=== PATIENT | female | born 1965 | race Caucasian/White ===

== ENCOUNTER 2017-01-22 15:44 | Inpatient (IN) | payer SELFPAY ==
--- NOTE | 2017-01-22 15:48 | EDPHY ---
H & P HPI/ROS: HPI CHIEF COMPLAINT: Shortness of breath, wheezing, productive cough HISTORY OF PRESENT ILLNESS: This patient very pleasant 51-year-old female, lives at [facility], has significant past medical history for pulmonary embolism, lupus, and blindness, she presents emergency room by EMS for progressively worsening shortness of breath over the past 3 weeks. Patient tells me she has been coughing worse over the last week. Patient tells me that she has a productive cough but due to being blind she is unsure what color the sputum is. Denies chest pain or pleuritic pain. Does have pain when she coughs. She is requiring 5 L nasal cannula to keep O2 sat above 90%. She normally wears 2-3 L however was satting 90%. Lives at [facility]. On Xarelto. Past Medical History: Lupus, blindness, pulmonary embolism Past Surgical History: Denies recent surgery Social History: Lives at [facility], denies drugs or tobacco. Family History: Noncontributory ROS REVIEW OF SYSTEMS: A comprehensive 10 point review of systems is otherwise negative aside from elements mentioned in the history of present illness. Exam Constitutional appears well nontoxic triage nursing summary reviewed, vital signs reviewed, awake/alert. Eyes normal conjunctivae and sclera, EOMI, PERRLA. HENT normal inspection, atraumatic, moist mucus membranes, no epistaxis, neck supple/ no meningismus, no raccoon eyes. Respiratory decreased breath sounds bilaterally, faint wheezing bilaterally, bronchitic sounding cough. Cardiovascular rate normal, regular rhythm, no murmur, no edema, distal pulses normal. Gastrointestinal soft, non-tender, no rebound, no guarding, normal bowel sounds, no distension, no pulsatile mass. Genitourinary no CVA tenderness. Musculoskeletal no midline vertebral tenderness, full range of motion, no calf swelling, no tenderness of extremities, no meningismus, good pulses, neurovascularly intact. Skin pink, warm, & dry, no rash, skin atraumatic. Neurologic awake, alert and oriented x 3, AAOx3, moves all 4 extremities equally, motor intact, sensory intact, CN II-XII intact, normal cerebellar, normal vision, normal speech. Psychiatric normal mood/affect. Heme/Lymph/Immune no lymphadenopathy. Differential Diagnosis: Includes but is not limited to in a particular order, bronchitis, viral syndrome, pneumonia, CHF, pulmonary embolism, pneumothorax Medical Decision Making: Plan for this patient full manager hospital, EKG, IV establishment, check troponin, D-dimer, BMP, DuoNeb breathing treatment, Solu- Medrol. Chest x-ray. Re-evaluation: EKG interpretation by me on record in [place] system. Impression time of EKG 1607, this is sinus tachycardia rate of 108. Left axis deviation. I do not appreciate acute ischemic change. ED CT angiogram: This is negative for central pulmonary embolism however there is decreased lung volume bilaterally, significant atelectasis at the base. Cannot rule out pneumonia. Cannot rule out small subsegmental PEs. 1847: Patient be admitted to the hospitalist service for hypoxia, shortness of breath. No PEs visualized on CT scan. Possible pneumonia I will give her IV Rocephin and IV azithromycin after blood cultures. Source: Patient, EMS Constitutional: Initial Vital Signs Temperature (C) 36.7 C 01/22/17 15:52 Heart Rate 112 H 01/22/17 15:52 Respiratory Rate 18 01/22/17 15:52 Blood Pressure 135/60 H 01/22/17 15:52 O2 Sat (%) 92 01/22/17 15:52 O2 Delivery Mode Nasal Cannula O2 (L/minute) 5 Allergies/Adverse Reactions: codeine Allergy (Verified 01/22/17 15:51) Sulfa (Sulfonamide Antibiotics) Allergy (Verified 01/22/17 15:51) contrast dye Allergy (Uncoded 01/22/17 15:51) Home Medications: Medication Instructions Recorded ALPRAZolam [Xanax 0.5 MG (*)] 0.5 mg PO BID PRN 01/22/17 Acetaminophen [Tylenol 325mg (*)] 650 mg PO Q6HRS PRN 01/22/17 Bisacodyl [Dulcolax] 10 mg RC DAILY PRN 01/22/17 Brimonidine 0.2% [ALPHAGAN 0.2% 1 drops EACHEYE TID@,14,01/22/17 (RX)] Dexamethasone [Decadron 4 MG (*)] 4 mg PO BID 01/22/17 Diclofenac Sodium 1% [Voltaren Gel 1 owen TP Q6HRS PRN 01/22/17 (*)] Divalproex ER [Depakote ER 250 MG 250 mg PO BID 01/22/17 (*)] Dorzolamide 2% [Trusopt 2% (*)] 1 drops OP BID 01/22/17 Gabapentin [Neurontin 300 MG (*)] 300 mg PO TID@08,,01/22/17 Herbals/Supplements -Info Only 1 ea PO DAILY 01/22/17 Hydrocodone/Acetaminophen [[place] 1 each PO Q6HRS PRN 01/22/17 5/325 (*)] Latanoprost 0.005% [Xalatan 0.005% 1 drops EACHEYE HS 01/22/17 (*)] Magnesium Hydroxide/Al Hydrox 20 ml PO Q4HRS PRN 01/22/17 [Mylanta Liquid] Omeprazole [Prilosec 20 mg] 20 mg PO DAILY 01/22/17 Rivaroxaban [Xarelto 10mg (*)] 20 mg PO HS 01/22/17 Sennosides/Docusate Sodium 1 each PO DAILY 01/22/17 [Senna-Docusate Sodium Tablet] Sertraline HCl [Zoloft 100mg (*)] 100 mg PO DAILY 01/22/17 Timolol 0.5% [TIMOPTIC 0.5% (*)] 1 drops EACHEYE BID 01/22/17 traZODone [traZODONE 50MG (*)] 50 mg PO HS 01/22/17 Ipratropium/Albuterol [Duoneb (*)] 3 ml IH Q4HRS PRN 01/23/17 Multivitamins [Multivitamin (*)] 1 each PO DAILY 01/23/17 Potassium Cl [Klor-Con 20 meq (*)] 40 meq PO BID@08,16 01/23/17 Medical Decision Making - Data Points Laboratory Results: Laboratory Results 01/22/17 16:15 01/22/17 16:15 01/22/17 16:15 Smear Review By Charito BABCOCK MD Medications Given: Discontinued Medications Acetaminophen (Tylenol) 650 mg PO Q4HRS PRN PRN Reason: Pain, Mild/Fever, Can Take PO Stop: 07/21/17 18:56 Last Admin: 01/22/17 21:48 Dose: 650 mg Albuterol/Ipratropium (Duoneb) 3 ml IH EDNOW ONE Stop: 01/22/17 15:52 Last Admin: 01/22/17 16:17 Dose: 3 ml Alprazolam (Xanax) 0.5 mg PO EDNOW ONE Stop: 01/22/17 16:30 Last Admin: 01/22/17 16:32 Dose: 0.5 mg Alprazolam (Xanax) 0.5 mg PO ONCE ONE Stop: 01/23/17 08:51 Last Admin: 01/23/17 09:13 Dose: 0.5 mg Diphenhydramine HCl (Benadryl Injection) 25 mg IVP EDNOW ONE Stop: 01/22/17 17:39 Last Admin: 01/22/17 17:42 Dose: 25 mg Sodium Chloride (Ns) 1,000 mls @ 0 mls/hr IV ONCE ONE; Wide Open PRN Reason: Protocol Stop: 01/22/17 15:52 Last Admin: 01/22/17 16:16 Dose: 1,000 mls Azithromycin 500 mg/ Dextrose 255 mls @ 255 mls/hr IV EDNOW ONE PRN Reason: Protocol Stop: 01/22/17 19:47 Last Admin: 01/22/17 20:27 Dose: 255 mls Ceftriaxone Sodium/Dextrose (Rocephin 1 Gm (Premix)) 50 mls @ 100 mls/hr IV EDNOW ONE PRN Reason: Protocol Stop: 01/22/17 19:17 Last Admin: 01/22/17 23:16 Dose: Not Given Azithromycin 500 mg/ Dextrose 255 mls @ 255 mls/hr IV DAILY CINTIA PRN Reason: Protocol Stop: 02/22/17 08:59 Last Admin: 01/23/17 10:38 Dose: Not Given Methylprednisolone Sodium Succinate (Solu-Medrol) 125 mg IVP EDNOW ONE Stop: 01/22/17 15:52 Last Admin: 01/22/17 16:17 Dose: 125 mg Departure - Departure Disposition: [facility] Inpatient Acute Clinical Impression: Hypoxia Pneumonia Qualifiers: Pneumonia type: due to unspecified organism Laterality: bilateral Lung location : lower lobe of lung Qualified Code(s): J18.9 - Pneumonia, unspecified organism Condition: Fair
[2017-01-22] MEDS ORDERED: IPRATROPIUM/ALBUTEROL 3 ML DEYVIAL IH ONE (15:51)
[2017-01-22] MEDS ORDERED: NS 1,000 ML IV ONE (15:51)
[2017-01-22] MEDS ORDERED: methylPREDNISolone SOD SUCC 125 MG/2 ML VIAL IVP ONE (15:51)
--- NOTE | 2017-01-22 16:09 | CPEKG ---
Heart Rate: 108 RR Interval: 556 P-R Interval: 128 QRSD Interval: 76 QT Interval: 348 QTC Interval: 467 P [place]: -4 QRS [place]: -39 T Wave [place]: 17 EKG Severity - ABNORMAL ECG - EKG Impression: SINUS TACHYCARDIA EKG Impression: LEFT AXIS DEVIATION EKG Impression: PROBABLE LEFT VENTRICULAR HYPERTROPHY EKG Impression: CONSIDER ANTERIOR INFARCT Electronically Signed By: Jacques Cabrera 22-Jan-2017 22:32:10
[2017-01-22 16:21] LABS: ABSOLUTE NRBC COUNT 0.06 10^3/uL (0-0.01); ADD DIFF? YES; ADD MORPH? NO; ADD SCAN? NO; ATYPICAL LYMPHOCYTE FLAG 0 (0-99); FRAGMENT RBC FLAG 20 (0-99); HEMATOCRIT 41.4 % (38.0-47.0); HEMOGLOBIN 12.8 g/dL (12.6-16.3); LEFT SHIFT FLG 20 (0-99); LIPEMIA HEMOLYSIS FLAG 80 (0-99); MEAN CELL HEMOGLOBIN 24.9 pg (27.9-34.1); MEAN CELL HEMOGLOBIN CONCENTR. 30.9 g/dL (32.4-36.7); MEAN CELL VOLUME 80.5 fL (81.5-99.8); MEAN PLATELET VOLUME 9.9 fL (8.7-11.7); NRBC-AUTO% 0.5 % (0.0-0.2); PLATELET CLUMPS FLAG 20 (0-99); PLATELET COUNT 242 10^3/uL (150-400); RED BLOOD CELL COUNT 5.14 10^6/uL (4.18-5.33); RED CELL DISTRIBUTION WIDTH 19.5 % (11.5-15.2)
[2017-01-22] MEDS ORDERED: ALPRAZolam 0.25 MG TAB PO ONE (16:29)
[2017-01-22 16:31] LABS: APTT 23.7 SEC (23.0-38.0); INR 1.08 (0.83-1.16); PROTIME(PATIENT) 13.9 SEC (12.0-15.0)
[2017-01-22 16:33] LABS: ANION GAP 10 mEq/L (8-16); CALCIUM 8.7 mg/dL (8.5-10.4); CARBON DIOXIDE 27 mEq/l (22-31); CHLORIDE 98 mEq/L (97-110); CREATININE 0.6 mg/dL (0.6-1.0); GLOMERULAR FILTRATION RATE > 60; GLUCOSE 151 mg/dL (70-100); POTASSIUM 3.9 mEq/L (3.5-5.2); SODIUM 135 mEq/L (134-144)
[2017-01-22 16:46] LABS: TROPONIN I < 0.012 ng/mL (0-0.034)
[2017-01-22 17:09] LABS: MICROCYTES 1+; PLATELET ESTIMATE ADEQUATE (ADEQ); POLYCHROMASIA 1+; STOMATOCYTES 1+
[2017-01-22] MEDS ORDERED: IOPAMIDOL (ISOVUE-300) 100 ML BTL ONE (18:14)
[2017-01-22] MEDS ORDERED: AZITHROMYCIN IV 500 MG in D5W 250 ML IV ONE (18:48)
[2017-01-22] MEDS ORDERED: ACETAMINOPHEN 325 MG TAB PO PRN (18:57)
[2017-01-22] MEDS ORDERED: ONDANSETRON 4 MG/2 ML VIAL IVP PRN (18:57)
[2017-01-22] MEDS ORDERED: ONDANSETRON DISINTEGRATING 4 MG TAB PO PRN (18:57)
[2017-01-22] MEDS ORDERED: ALBUTEROL 3 ML DEYVIAL IH PRN (19:30)
--- NOTE | 2017-01-22 20:15 | GHP ---
[f rep st] HISTORY AND PHYSICAL DATE OF ADMISSION: 01/22/2017 HISTORY OF PRESENT ILLNESS: The patient is a 51-year-old female with a history of lupus, blindness secondary to glaucoma, and pulmonary embolism, as well as super morbid obesity who presents with inc reased work of breathing. She says it feels like perhaps there is something on her chest. She has been coughing up sputum. She does not know what color. She has not had fever, chills. She is curr ently on Xarelto for her pulmonary embolism that occurred last year where she is cared for by [facility]. She lives in [place]. There is no chest pain but there is the aforementioned pressure. She says she has been short of eduardo ath for 3 weeks. She does have chronic hypoxia. It is reasonably attributed to pulmonary embolism plus obesity hypoventilation syndrome is normally 2 to 3 L. REVIEW OF SYSTEMS: Complete 10-point review of systems conducted. Negative except as noted in the H PI. HPI data it sounds like she was started on dexamethasone a couple of days ago. PAST MEDICAL HISTORY: 1. Lupus. 2. Blindness secondary to glaucoma. 3. Pulmonary embolism. SOCIAL HISTORY: Lives at [facility]. 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 Lives in [place]. N o alcohol. No tobacco. FAMILY HISTORY: There is no history of lupus or pulmonary embolism. ALLERGIES: Codeine, sulfa, and IV contrast. HOME MEDICATIONS: Bisacodyl, brimonidine eye drops, camphor, dexamethasone, divalproex, dorzolamide eye drops, gabapentin, hydrocodone, latanoprost eyedrops, Mylanta, omeprazole, senna docusate, haley lol, trazodone, Tylenol, Voltaren, Xanax, and Xarelto as well as Zoloft. PHYSICAL EXAMINATION: VITAL SIGNS: Temp 36.7; blood pressure 135/60; pulse 112, now 65; breathing 18 times a minute; 92% on 5 L. GENERAL: No acute distress. HEENT: Cushingoid. Sclerae anicteric . Oropharynx clear. Mucous membranes are moist. NECK: Supple without lymphadenopathy or JVD. ARMANDO NGS: Rhonchorous anterolaterally with good air movement. Minimal wheeze but she does sound tight o n speaking. HEART: S1, S2. Borderline tachycardic. ABDOMEN: Soft, obese, nontender. EXTREMITIE S: Lower extremities there are couple of bandages on the right ann. There is 1+ edema. Calves ar e nontender. SKIN: Without rash. NEUROLOGIC: Nonfocal. LABORATORY: Chest x-ray, interpreted by me, is of limited diagnostic value. EKG, interpreted by me , shows sinus tachycardia at 108 with left axis deviation. There are normal intervals. There are n o ST or T-wave changes. No prior for comparison. CTA of the chest shows atelectasis, low lung volu mes. No central pulmonary embolism. Fair amount of atelectasis, suspected hepatic steatosis. I forrester ve discussed the case with Dr. Jacques Cabrera. ASSESSMENT AND PLAN: This is a 51-year-old female presents with chest pain most consistent with bro nchitis but with a high load of medical comorbidities. 1. Hypoxia. I suspect she has bronchitis in the setting of obesity hypoventilation syndrome. We w ill go ahead and give her azithromycin antibiotics, DuoNeb. I think pulmonary embolism has effectiv ant been ruled out. 2. Chest pressure. I think this is secondary to her bronchitis. However, we will cycle troponins and follow her on telemetry given her risk factors. 3. Lupus. It sounds like her predominant symptoms are rash and joint pain. It is not clear if the dexamethasone represents chronic steroids. We will treat her with steroids for now and we will fol low. 4. Prophylaxis. She is currently therapeutically anticoagulated. 5. Disposition. Inpatient status. 6. Code. Full. /[id number]/MODL
[2017-01-22] MEDS: IPRATROPIUM/ALBUTEROL 3 ML DEYVIAL IH SCH (23:47)
[2017-01-23] MEDS: BENZONATATE 100 MG CAP PO PRN ×2 (01:16→06:27)
[2017-01-23 04:39] LABS: ABSOLUTE NRBC COUNT 0.05 10^3/uL (0-0.01); ADD DIFF? YES; ADD MORPH? NO; ADD SCAN? NO; ATYPICAL LYMPHOCYTE FLAG 0 (0-99); FRAGMENT RBC FLAG 20 (0-99); HEMATOCRIT 37.6 % (38.0-47.0); HEMOGLOBIN 11.7 g/dL (12.6-16.3); LEFT SHIFT FLG 40 (0-99); LIPEMIA HEMOLYSIS FLAG 80 (0-99); MEAN CELL HEMOGLOBIN 24.8 pg (27.9-34.1); MEAN CELL HEMOGLOBIN CONCENTR. 31.1 g/dL (32.4-36.7); MEAN CELL VOLUME 79.8 fL (81.5-99.8); MEAN PLATELET VOLUME 9.6 fL (8.7-11.7); NRBC-AUTO% 0.4 % (0.0-0.2); PLATELET CLUMPS FLAG 0 (0-99); PLATELET COUNT 254 10^3/uL (150-400); RED BLOOD CELL COUNT 4.71 10^6/uL (4.18-5.33); RED CELL DISTRIBUTION WIDTH 19.1 % (11.5-15.2)
[2017-01-23 05:09] LABS: MICROCYTES 1+; PLATELET ESTIMATE ADEQUATE (ADEQ); STOMATOCYTES 1+
[2017-01-23 05:16] LABS: ANION GAP 7 mEq/L (8-16); CALCIUM 8.6 mg/dL (8.5-10.4); CARBON DIOXIDE 27 mEq/l (22-31); CHLORIDE 102 mEq/L (97-110); CREATININE 0.5 mg/dL (0.6-1.0); GLOMERULAR FILTRATION RATE > 60; GLUCOSE 108 mg/dL (70-100); POTASSIUM 3.6 mEq/L (3.5-5.2); SODIUM 136 mEq/L (134-144)
[2017-01-23] MEDS: IPRATROPIUM/ALBUTEROL 3 ML DEYVIAL IH SCH ×4 (05:57→22:43)
--- NOTE | 2017-01-23 08:49 | HOSPPROG ---
Hospitalist Progress Note Assessment/Plan: The patient is a 51-year-old female with history of lupus, blindness secondary to glaucoma, history of PE and morbid obesity. She presented to the emergency room with increased work of breathing. I reviewed her CTA of the chest which shows atelectasis and low lung volumes. It does not note that she has a PE today is my 1st encounter with the patient. Chart reviewed. * likely bronchitis in the setting of obesity hypoventilation syndrome -on azithromycin, and duo nebs * acute hypoxemia -suspect this is multifactorial/ due to obesity, anxiety, and broonchitis *Chest pressure troponin is negative. CTA shows some cardiac enlargement *Lupus * anxiety resume Xanax *blindness secondary to glaucoma *Plan: dc after lunch if she improves/ will change her abx to oral (has no IV site) Subjective: Sabrina continues to feel short of breath, maybe feels a bit better than when admitted. Objective: Vital Signs Temp Pulse Resp BP Pulse Ox 37.3 C 102 H 17 128/81 H 92 01/23/17 08:00 01/23/17 05:57 01/23/17 05:57 01/23/17 08:00 01/23/17 08:00 Laboratory Results 01/23/17 04:32 01/23/17 04:32 01/22/17 01/23/17 01/24/17 05:59 05:59 05:59 Intake Total 300 Balance 300 PT 13.9 SEC (12.0-15.0) 01/22/17 16:15 INR 1.08 (0.83-1.16) 01/22/17 16:15 - Physical Exam Constitutional: chronically ill appearing, obese, uncomfortable Ears, Nose, Mouth, Throat: hearing normal Cardiovascular: regular rate and rhythym Respiratory: no respiratory distress, reduced air movement Skin: warm Musculoskeletal: generalized weakness Neurologic: AAOx3 Psychiatric: interacting appropriately, not anxious ICD10 Worksheet Patient Problems: Problems Problem Status Onset Hypoxia Acute Pneumonia Acute
[2017-01-23] MEDS ORDERED: ALPRAZolam 0.5 MG TAB PO ONE (08:50)
[2017-01-23] MEDS: AZITHROMYCIN IV 500 MG in D5W 250 ML IV SCH ×2 (10:03→10:38)
[2017-01-23] MEDS ORDERED: HYDROCODONE/APAP 5/325 TAB PO PRN (10:23)
[2017-01-23] MEDS ORDERED: DICLOFENAC SODIUM 1% 100 GM GEL TP PRN (10:23)
[2017-01-23] MEDS ORDERED: IPRATROPIUM/ALBUTEROL 3 ML DEYVIAL IH PRN (10:23)
[2017-01-23] MEDS ORDERED: ALUMINUM HYDROXIDE PO PRN (10:23)
[2017-01-23] MEDS ORDERED: BISACODYL 10 MG SUPP PR PRN (10:23)
[2017-01-23] MEDS ORDERED: MAGNESIUM HYDROXIDE PO PRN (10:23)
[2017-01-23] MEDS ORDERED: Herbals/Supplements -Info Only PO SCH (10:30)
[2017-01-23] MEDS ORDERED: ACETAMINOPHEN 650 MG/20.3 ML UDCUP PO PRN (10:38)
[2017-01-23] MEDS: DIVALPROEX ER 250 MG TAB PO SCH ×2 (11:18→20:25)
[2017-01-23] MEDS: DEXAMETHASONE 4 MG TAB PO SCH ×2 (11:18→20:26)
[2017-01-23] MEDS: SERTRALINE HCL 100 MG TAB PO SCH (11:18)
[2017-01-23] MEDS: PANTOPRAZOLE SODIUM 40 MG TAB PO SCH (11:18)
[2017-01-23] MEDS: AZITHROMYCIN 250 MG TAB PO SCH (11:19)
[2017-01-23] MEDS: SENNOSIDES/DOCUSATE SODIUM TAB PO SCH (11:35)
--- NOTE | 2017-01-23 13:54 | WOCRNPDOC ---
WOCRN Advanced Assessment Note - Skin Integrity Problem, Advanced Assess Right Lower Leg Surgical Wound/Incision Dressing Type: Allevyn Life (one large, one small) Dressing Description: Clean/Dry, Intact Exudate Amount: Scant Exudate Color: Reddish/Yellow Exudate Characteristic(s): Serosanguinous Integumentary Issue Intervention: Visualized Under Dressing, Hydrogel Applied Khushboo Wound Tissue: Thin, Dry, Scarred Khuhsboo Wound Swelling: None Wound Bed Color: Red, Yellow Wound Bed Constitution: Smooth Tissue Wound Edges: Epithelizing Site Odor: None Skin Integrity Problem Comment: Three, pinpoint wounds noted in much larger area (26kgv2co) of epithelialized scar tissue r/t surgery patient reportedly had one year ago. Larger wound is well-healed, and there remain only these three smaller areas. Khushboo-wound skin, and skin throughout this entire extremity , is paper-like and thin r/t what appears to be chronic tx w/ steroids. Applied Hydrogel throughout the entire area of scar tissue, and to the pinpoint wounds, then recovered w/ existing Allevyn dressing. Report given to port patrol officer Iam. Wound RN does not need to follow ongoing, and nursing is advised to reconsult PRN.
[2017-01-23] MEDS: GABAPENTIN 300 MG CAP PO SCH ×2 (14:01→19:42)
[2017-01-23] MEDS: GUAIFENESIN/DM 10 ML UDCUP PO PRN ×2 (14:01→19:42)
[2017-01-23] MEDS: DORZOLAMIDE 2% OPTH DROPS OP SCH ×2 (16:26→20:26)
[2017-01-23] MEDS: POTASSIUM CL 20 MEQ TAB PO SCH (16:33)
[2017-01-23] MEDS: BRIMONIDINE 0.2% 5 ML OPHT.BTL EACHEYE SCH ×2 (16:35→19:44)
[2017-01-23] MEDS: TIMOLOL 0.5% 15 ML OPHT.BTL EACHEYE SCH ×2 (17:20→20:27)
[2017-01-23] MEDS: ALBUTEROL 3 ML DEYVIAL IH SCH ×2 (17:47→22:44)
[2017-01-23] MEDS: traZODone 50 MG TAB PO SCH (20:26)
[2017-01-23] MEDS: LATANOPROST 0.005% 2.5 ML OPHT DROPS EACHEYE SCH (20:27)
[2017-01-23] MEDS ORDERED: RIVAROXABAN 10 MG TAB PO SCH (21:00)
[2017-01-23] MEDS: RIVAROXABAN 20 MG TAB PO SCH (21:05)
[2017-01-23] MEDS: methylPREDNISolone SOD SUCC 125 MG/2 ML VIAL IVP SCH ×2 (21:05→21:07)
[2017-01-24] MEDS: ALBUTEROL 3 ML DEYVIAL IH SCH ×3 (04:08→10:43)
[2017-01-24] MEDS: methylPREDNISolone SOD SUCC 125 MG/2 ML VIAL IVP SCH ×2 (04:09→10:27)
[2017-01-24] MEDS: BENZONATATE 100 MG CAP PO PRN (04:21)
[2017-01-24] MEDS: GUAIFENESIN/DM 10 ML UDCUP PO PRN ×2 (04:26→08:09)
[2017-01-24] MEDS: IPRATROPIUM/ALBUTEROL 3 ML DEYVIAL IH SCH ×4 (04:38→21:35)
[2017-01-24 05:15] LABS: ABSOLUTE NRBC COUNT 0.07 10^3/uL (0-0.01); ADD DIFF? YES; ADD MORPH? NO; ADD SCAN? NO; ATYPICAL LYMPHOCYTE FLAG 0 (0-99); FRAGMENT RBC FLAG 20 (0-99); HEMATOCRIT 37.4 % (38.0-47.0); HEMOGLOBIN 11.2 g/dL (12.6-16.3); LEFT SHIFT FLG 30 (0-99); LIPEMIA HEMOLYSIS FLAG 70 (0-99); MEAN CELL HEMOGLOBIN 24.7 pg (27.9-34.1); MEAN CELL HEMOGLOBIN CONCENTR. 29.9 g/dL (32.4-36.7); MEAN CELL VOLUME 82.6 fL (81.5-99.8); MEAN PLATELET VOLUME 9.4 fL (8.7-11.7); NRBC-AUTO% 0.7 % (0.0-0.2); PLATELET CLUMPS FLAG 0 (0-99); PLATELET COUNT 234 10^3/uL (150-400); RED BLOOD CELL COUNT 4.53 10^6/uL (4.18-5.33); RED CELL DISTRIBUTION WIDTH 19.5 % (11.5-15.2)
[2017-01-24 05:28] LABS: ALANINE AMINOTRANSFERASE 57 IU/L (9-52); ALBUMIN 2.6 g/dL (3.5-5.0); ALKALINE PHOSPHATASE 49 IU/L (38-126); ANION GAP 9 mEq/L (8-16); ASPARTATE AMINOTRANSFERASE 36 IU/L (14-46); BILIRUBIN,TOTAL 0.4 mg/dL (0.1-1.4); CALCIUM 8.7 mg/dL (8.5-10.4); CARBON DIOXIDE 28 mEq/l (22-31); CHLORIDE 102 mEq/L (97-110); CREATININE 0.5 mg/dL (0.6-1.0); GLOMERULAR FILTRATION RATE > 60; GLUCOSE 135 mg/dL (70-100); POTASSIUM 4.2 mEq/L (3.5-5.2); SODIUM 139 mEq/L (134-144); TOTAL PROTEIN 4.9 g/dL (6.3-8.2)
[2017-01-24 05:46] LABS: GIANT PLATELETS PRESENT; MICROCYTES 3+; PLATELET ESTIMATE ADEQUATE (ADEQ); POLYCHROMASIA 1+; SCHISTOCYTES 1+
[2017-01-24 05:48] LABS: ELLIPTOCYTES 1+
[2017-01-24] MEDS: MULTIVITAMINS 1 EACH TAB PO SCH (07:55)
[2017-01-24] MEDS: DIVALPROEX ER 250 MG TAB PO SCH ×2 (07:55→20:46)
[2017-01-24] MEDS: AZITHROMYCIN 250 MG TAB PO SCH (07:55)
[2017-01-24] MEDS: SERTRALINE HCL 100 MG TAB PO SCH (07:56)
[2017-01-24] MEDS: PANTOPRAZOLE SODIUM 40 MG TAB PO SCH (07:56)
[2017-01-24] MEDS: DEXAMETHASONE 4 MG TAB PO SCH ×2 (07:56→20:47)
[2017-01-24] MEDS: SENNOSIDES/DOCUSATE SODIUM TAB PO SCH (07:56)
[2017-01-24] MEDS: POTASSIUM CL 20 MEQ TAB PO SCH ×2 (07:57→15:19)
[2017-01-24] MEDS: GABAPENTIN 300 MG CAP PO SCH ×3 (07:57→20:45)
[2017-01-24] MEDS: TIMOLOL 0.5% 15 ML OPHT.BTL EACHEYE SCH ×2 (08:01→20:49)
[2017-01-24] MEDS: BRIMONIDINE 0.2% 5 ML OPHT.BTL EACHEYE SCH ×3 (08:01→20:47)
[2017-01-24] MEDS: DORZOLAMIDE 2% OPTH DROPS OP SCH ×2 (08:02→20:48)
[2017-01-24] MEDS: ALPRAZolam 0.5 MG TAB PO PRN (08:09)
--- NOTE | 2017-01-24 11:22 | HOSPPROG ---
Hospitalist Progress Note Assessment/Plan: The patient is a 51-year-old female with history of lupus, blindness secondary to glaucoma, history of PE and morbid obesity. She presented to the emergency room with increased work of breathing. I reviewed her CTA of the chest which shows atelectasis and low lung volumes. It does not note that she has a PE * likely bronchitis in the setting of obesity hypoventilation syndrome -on azithromycin, and duo nebs * acute hypoxemia -suspect this is multifactorial/ due to obesity, anxiety, and bronchitis -she is on 5 liters/this may be her new baseline *coughing bouts on iv steroids with some improvement will dc these since on Decadron increase PPI to bid *Chest pressure troponin is negative. CTA shows some cardiac enlargement will get an echo for further evaluation *Lupus * anxiety resume Xanax *blindness secondary to glaucoma *morbid obesity with BMI of 52 impacting the above patient said she has been bed ridden x 1 year from wound on right ann area will ask for her to get OOB in nolvia lift *Plan: will get an echo, cont aggressive pulmonary toileting/ encouraged the patient to get OOB 3 x day/ with nolvia lift/ lying flat will not help her lung capacity/ increase her PPI bid/ this may be contributing to her cough, will ask nursing staff to teach her how to use an IS Subjective: Sabrina says she 'might' be feeling better since yesterday. Still having coughing spells. Objective: Vital Signs Temp Pulse Resp BP Pulse Ox 36.8 C 101 H 17 122/76 H 94 01/24/17 09:15 01/24/17 10:44 01/24/17 10:44 01/24/17 09:15 01/24/17 10:44 Laboratory Results 01/24/17 04:56 01/24/17 04:56 01/23/17 01/24/17 01/25/17 05:59 05:59 05:59 Intake Total 300 610 Balance 300 610 PT 13.9 SEC (12.0-15.0) 01/22/17 16:15 INR 1.08 (0.83-1.16) 01/22/17 16:15 - Physical Exam Constitutional: chronically ill appearing, obese, uncomfortable Ears, Nose, Mouth, Throat: hearing normal Cardiovascular: regular rate and rhythym, other (distant heart tones) Respiratory: inspiratory crackles (bases/ increase rr after coughing ) Gastrointestinal: normoactive bowel sounds, other (large and round) Musculoskeletal: generalized weakness Neurologic: AAOx3 Psychiatric: interacting appropriately ICD10 Worksheet Patient Problems: Problems Problem Status Onset Hypoxia Acute Pneumonia Acute
[2017-01-24] MEDS ORDERED: ALBUTEROL 3 ML DEYVIAL IH PRN (11:27)
--- NOTE | 2017-01-24 13:45 | ECHO ---
[id number] + + [address] : : [place] [address] : : [phone] + + Adult Echocardiographic Report + --+ :Name: GERARDOKamala Date: 01/24/2017 12:16 PM : : Hospital Admission Number: [id number] Location: 3 86: :: 1965 Gender: Female Height: 61 in : :Age: 51 yrs Race: WH Weight: 280 lb : :Reason For Study: Worsening SOB/Cardiomegaly : : BSA: 2.2 meters2 : :History: Lupus/Obesity : + --+ MMode/2D Measurements \T\ Calculations LVIDd: 3.4 cm EDV(Teich): 46.9 ml Ao root diam: 3.5 cm LA dimension: 3.5 cm Normal Measurement Values: + + :LVIDd (3.5-5.7cm) IVSd (0.6-1.1cm) LVPWd (0.6-1.1cm) Aortic Root (2.0-3.7cm)Left Atrium (1.5-4.0cm): :LV Vol(d) (76-115ml) LV Vol(s) (29-48ml) Ejec Fraction (50-65%)PV Jono (0.6- 1.2m/s) TV Jono (0.4-1.0m/s) : :MV E Jono (0.8-1.0m/s)MV A Jono (0.3-1.0m/s)LVOT Jono (0.7-1.2m/s) Asc Ao Jono ( 0.9-1.8m/s) : + + Doppler Measurements \T\ Calculations MV E max jono: 46.4 cm/sec Ao V2 max: 101.8 cm/sec MV A max jono: 65.6 cm/sec Ao max P.1 mmHg MV E/A: 0.71 Left Ventricle The left ventricular cavity is small. Ejection Fraction = 60-65%. There is Doppler evidence for diastolic dysfunction. Right Ventricle The right ventricle is normal size. Atria The left atrial size is normal. Right atrial size is normal. Mitral Valve The mitral valve is normal. There is trace mitral regurgitation. Tricuspid Valve Normal tricuspid valve. There is trace tricuspid regurgitation. Aortic Valve The aortic valve opens well. Pulmonic Valve The pulmonic valve is normal in structure and function. Great Vessels The aortic root is normal size. Pericardium/Pleural There is a fat pad seen. There is no pericardial effusion. Conclusion A complete two-dimensional transthoracic echocardiogram was performed (2D, M-mode, Doppler and color flow Doppler). The study was technically difficult. Techically limited study with poor acoustic windows. The left ventricular cavity is small. Ejection Fraction = 60-65%. Normal wall motion. Normal RV, RA and LA dimensions. Grossly normal valvular structures. There is trace mitral regurgitation. There is trace tricuspid regurgitation. There is a fat pad seen. There is Doppler evidence for diastolic dysfunction. Final Reading Physician: Mariel Mcfarlane signed on 01/24/2017 01:44 PM Ordering Physician: Beatris Silva Performed By: Katty Miller, AMYCS
[2017-01-24] MEDS: RIVAROXABAN 20 MG TAB PO SCH (20:46)
[2017-01-24] MEDS: traZODone 50 MG TAB PO SCH (20:46)
[2017-01-24] MEDS: LATANOPROST 0.005% 2.5 ML OPHT DROPS EACHEYE SCH (20:49)
[2017-01-25] MEDS: GUAIFENESIN/DM 10 ML UDCUP PO PRN ×2 (02:32→09:18)
[2017-01-25] MEDS: IPRATROPIUM/ALBUTEROL 3 ML DEYVIAL IH SCH ×2 (06:18→10:17)
[2017-01-25] MEDS: PANTOPRAZOLE SODIUM 40 MG TAB PO SCH (09:17)
[2017-01-25] MEDS: ALPRAZolam 0.5 MG TAB PO PRN (09:17)
[2017-01-25] MEDS: MULTIVITAMINS 1 EACH TAB PO SCH (09:17)
[2017-01-25] MEDS: SENNOSIDES/DOCUSATE SODIUM TAB PO SCH (09:17)
[2017-01-25] MEDS: DIVALPROEX ER 250 MG TAB PO SCH (09:17)
[2017-01-25] MEDS: DEXAMETHASONE 4 MG TAB PO SCH (09:17)
[2017-01-25] MEDS: AZITHROMYCIN 250 MG TAB PO SCH (09:18)
[2017-01-25] MEDS: GABAPENTIN 300 MG CAP PO SCH ×2 (09:18→12:59)
[2017-01-25] MEDS: SERTRALINE HCL 100 MG TAB PO SCH (09:18)
[2017-01-25] MEDS: POTASSIUM CL 20 MEQ TAB PO SCH (09:18)
[2017-01-25] MEDS: TIMOLOL 0.5% 15 ML OPHT.BTL EACHEYE SCH (09:19)
[2017-01-25] MEDS: DORZOLAMIDE 2% OPTH DROPS OP SCH (09:19)
[2017-01-25] MEDS: BRIMONIDINE 0.2% 5 ML OPHT.BTL EACHEYE SCH ×2 (09:27→12:58)
--- NOTE | 2017-01-25 09:56 | HOSPPROG ---
Hospitalist Progress Note Assessment/Plan: The patient is a 51-year-old female with history of lupus, blindness secondary to glaucoma, history of PE and morbid obesity. She presented to the emergency room with increased work of breathing. I reviewed her CTA of the chest which shows atelectasis and low lung volumes. It does not note that she has a PE * likely bronchitis in the setting of obesity hypoventilation syndrome -on azithromycin, and duo nebs * acute hypoxemia -suspect this is multifactorial/ due to obesity, anxiety, and bronchitis -she is back to her baseline of 3 liters -echo shows ef of 60-65%/ DD/ left ventricular cavity is small *coughing bouts on iv steroids with some improvement will dc these since on Decadron increase PPI to bid which has helped *Chest pressure troponin is negative. CTA shows some cardiac enlargement *Lupus * anxiety resume Xanax *blindness secondary to glaucoma *morbid obesity with BMI of 52 impacting the above patient said she has been bed ridden x 1 year from wound on right ann area will ask for her to get OOB in nolvia lift *Plan: dc to BM/ patient requesting it be air conditioned/ CM confirmed this Subjective: Sabrina is feeling better/ having some coughing. Objective: Vital Signs Temp Pulse Resp BP Pulse Ox 36.8 C 97 18 115/72 95 01/25/17 08:00 01/25/17 08:00 01/25/17 08:00 01/25/17 08:00 01/25/17 08:00 Laboratory Results 01/24/17 04:56 01/24/17 04:56 01/24/17 01/25/17 01/26/17 05:59 05:59 05:59 Intake Total 610 610 Balance 610 610 PT 13.9 SEC (12.0-15.0) 01/22/17 16:15 INR 1.08 (0.83-1.16) 01/22/17 16:15 - Physical Exam Constitutional: not in pain, chronically ill appearing, obese Ears, Nose, Mouth, Throat: hearing normal Cardiovascular: regular rate and rhythym, other (distant heart tones) Respiratory: no respiratory distress, reduced air movement Gastrointestinal: normoactive bowel sounds, other (large and round) Skin: warm Musculoskeletal: generalized weakness Neurologic: AAOx3 Psychiatric: interacting appropriately ICD10 Worksheet Patient Problems: Problems Problem Status Onset Hypoxia Acute Pneumonia Acute
--- NOTE | 2017-01-25 10:04 | PDIAF ---
- Diagnosis Diagnosis: bronchitis, coughing Code Status: Full Code - Medication Management Discharge Medications: Medications to Continue on Transfer ALPRAZolam [Xanax 0.5 MG (*)] 0.5 mg PO BID PRN 01/22/17 [Last Taken 01/21/17] Acetaminophen [Tylenol 325mg (*)] 650 mg PO Q6HRS PRN 01/22/17 [Last Taken Unknown] Bisacodyl [Dulcolax] 10 mg RC DAILY PRN 01/22/17 [Last Taken 01/21/17] Brimonidine 0.2% [Alphagan 0.2%] 1 drops EACHEYE TID@,,01/22/17 [Last Taken 01/22/17 14:00] Dexamethasone [Decadron 4 MG (*)] 4 mg PO BID 01/22/17 [Last Taken 01/22/17 08: 00] Diclofenac Sodium 1% [Voltaren Gel (*)] 1 owen TP Q6HRS PRN 01/22/17 [Last Taken Unknown] Divalproex ER [Depakote ER 250 MG (*)] 250 mg PO BID 01/22/17 [Last Taken 08:00] Dorzolamide 2% [Trusopt 2% (*)] 1 drops OP BID 01/22/17 [Last Taken 01/22/17 08: 00] Gabapentin [Neurontin 300 MG (*)] 300 mg PO TID@,,01/22/17 [Last Taken 14:00] Herbals/Supplements -Info Only 1 ea PO DAILY 01/22/17 [Last Taken Unknown] Hydrocodone/Acetaminophen [[place] 5/325 (*)] 1 each PO Q6HRS PRN 01/22/17 [Last Taken Unknown] Latanoprost 0.005% [Xalatan 0.005% (*)] 1 drops EACHEYE HS 01/22/17 [Last Taken 01/22/17] Magnesium Hydroxide/Al Hydrox [Mylanta Liquid] 20 ml PO Q4HRS PRN 01/22/17 [ Last Taken Unknown] Rivaroxaban [Xarelto 10mg (*)] 20 mg PO HS 01/22/17 [Last Taken 01/22/17] Sennosides/Docusate Sodium [Senna-Docusate Sodium Tablet] 1 each PO DAILY [Last Taken 01/22/17] Sertraline HCl [Zoloft 100mg (*)] 100 mg PO DAILY 01/22/17 [Last Taken 01/22/17] Timolol 0.5% [TIMOPTIC 0.5% (*)] 1 drops EACHEYE BID 01/22/17 [Last Taken 08:00] traZODone [traZODONE 50MG (*)] 50 mg PO HS 01/22/17 [Last Taken 01/22/17] Ipratropium/Albuterol [Duoneb (*)] 3 ml IH Q4HRS PRN 01/23/17 [Last Taken Unknown] Multivitamins [Multivitamin (*)] 1 each PO DAILY 01/23/17 [Last Taken 01/22/17] Potassium Cl [Klor-Con 20 meq (*)] 40 meq PO BID@08,16 01/23/17 [Last Taken 16:00] Acetaminophen [Tylenol 650/20.3ML Oral Liq (*)] 650 mg PO Q6 PRN #0 udcup [Last Taken Unknown] Azithromycin [Zithromax] 250 mg PO DAILY #4 tab 01/25/17 [Last Taken Unknown] Benzonatate [Tessalon Pearles] 200 mg PO TID PRN #0 cap 01/25/17 [Last Taken Unknown] Pantoprazole Sodium [Protonix 40mg (*)] 40 mg PO DAILY #60 tab 01/25/17 [Last Taken Unknown] guaiFENesin/DEXTROMETHORPHAN [Robitussin Dm Oral Liquid (*)] 10 ml PO Q4HRS PRN #0 ml 01/25/17 [Last Taken Unknown] Discharge Medications: Refer to the Discharge Home Medication list for PRN reason. PICC Care - Routine: N/A - Orders Services needed: Physical Therapy, Occupational Therapy Diet Recommendation: no restrictions on diet Diet Texture: Regular Texture Diet Activity/Weight Bearing Restrictions: oob with nolvia lift till strong enough to mobilize Additional: Sabrina has been started on protonix bid with good relief from cough symptoms. The GERD is likely contributing to this. Take the azithromycin x 4 more day. - Follow Up Care Current Providers and Referrals: Patient,NotPresent [Unknown] - As per Instructions
[2017-01-25 13:08] VITALS: BP 103/62; PULSE 100; RESP 18; TEMP 97.9; O2SAT 95
--- NOTE | 2017-01-25 21:15 | GDS ---
[f rep st] DISCHARGE SUMMARY DISCHARGE DIAGNOSES: 1. Bronchitis in the setting of obesity hypoventilation syndrome. 2. Acute hypoxemia. 3. Coughing bouts. 4. Chest pressure. 5. Lupus. 6. Anxiety. 7. Blindness secondary to glaucoma. 8. Morbid obesity with a BMI of 52. HISTORY: Sabrina is 51-year-old female with a history of lupus, blindness secondary to glaucoma, history of PE and morbid obesity. She presented to the emergency room with increased work of breathing. She had a CT of the chest, which showed atelectasis and low lung volumes. It did not note that she has a PE. Throughout her stay she has been slow to improve. I suspect some of her coughing bouts have been related to underlying reflux disease. She has had less coughing with placing her on Protonix b.i.d. HOSPITAL COURSE: 1. Bronchitis in the setting of obesity hypoventilation syndrome, on azithromycin, improved. 2. Acute hypoxemia. This is multifactorial due to obesity, underlying anxiety , and bronchitis. She is back to her baseline at 3 L. An echocardiogram was performed, which showed an EF of 60% to 65% with diastolic dysfunction. Left ventricular cavity is small. 3. Coughing bouts. Improved. 4. Chest pressure. Troponin is negative. CTA shows some cardiac enlargement. 5. Lupus, resumed Decadron. 6. Anxiety, on Xanax. 7. Blindness secondary to glaucoma. 8. Morbid obesity with BMI of 52. She said she has been bedridden for a year with due to a wound on her right ann area. I have really encouraged her to get out of bed even with the Shyanne lift. PENDING LABS AND TESTS: None. CONDITION AT DISCHARGE: Stable. Blood pressure is 115/72, heart rate 72, respiratory rate is 18, O2 sats on 3 L are 95%, temperature is 36.8 Celsius. MEDICATIONS AT DISCHARGE: Please see the EMR. DISCHARGE INSTRUCTIONS: 1. If she develops fevers, chills, chest pain or worsening shortness of breath , return to the ER. 2. I have encouraged her also to work on getting out of bed just to get her strength back. Greater than 30 minutes discharging and coordinating care. /[id number]/MODL MTDD
== END 2017-01-25 14:16 | DRG 202 ==
LOC: F3E 20:35
PROVIDERS: ADMIT Internal Medicine; ATTEND Internal Medicine
DX: J40 Bronchitis, not specified as acute or chronic (principal); E66.2 Morbid (severe) obesity with alveolar hypoventilation; Z68.43 Body mass index [BMI] 50.0-59.9, adult; R09.02 Hypoxemia; L93.0 Discoid lupus erythematosus; F41.9 Anxiety disorder, unspecified; H54.0 Blindness, both eyes; Z79.01 Long term (current) use of anticoagulants; Z86.711 Personal history of pulmonary embolism
CPT/HCPCS: 96374; 97110-GP; 97161-GP; 97166-GO; J0456; J1200; Q9967

== ENCOUNTER 2017-02-19 15:43 | Emergency (ER) | payer MEDICAID ==
[2017-02-19 15:52] VITALS: RESP 16; TEMP 98.6
[2017-02-19] MEDS ORDERED: methylPREDNISolone SOD SUCC 125 MG/2 ML VIAL IVP ONE (15:52)
--- NOTE | 2017-02-19 15:59 | EDPHY ---
H & P Smoking Status: Never smoked Time Seen by Provider: 02/19/17 15:46 HPI/ROS: HPI: Ms Camarena is a 52 yrs, female who presents with Chief Complaint: Dyspnea Location: Chest Quality: Dyspnea Duration: 2 days Signs and Symptoms: No lower extremity swelling, positive productive cough, positive pain with coughing episodes only, no palpitation, no chest pain, no orthopnea, no paroxysmal nocturnal dyspnea, no fever, positive chills Timing: Acute on chronic, gradual onset now constant Severity: Moderate to severe Context: Patient presents from [facility] with a history of obstructive sleep apnea but does not have CPAP machine as "she had to turn it in", chronic respiratory failure and wear supplemental oxygen at 2 L nasal cannula at night, anxiety, morbid obesity. Patient reports gradual onset of dyspnea, non positional, that has been worsening over the last 2 days. Arrived via EMS with O2 sats 91% on 3 L nasal cannula. Not on supplemental oxygen at home. Was seen in the ER on 01/22/2017 admitted to this hospital for bronchitis in the setting of obesity hypoventilation syndrome. At that time she had a CTA that did not show pulmonary embolism but did show some mild cardiac enlargement. An echocardiogram was also performed at that time which showed EF 60-65% with diastolic dysfunction. Modifying Factors: Comment: ROS: Eyes: No blurred vision Respiratory: + shortness of breath, + cough Cardiovascular: No chest pain Gastrointestinal: No nausea, no vomiting no diarrhea Genitourinary: No dysuria Extremities: No myalgias Neurologic: No weakness, no numbness Skin: No rashes Hematologic: No bruising, no bleeding MEDICAL/SURGICAL HISTORY: See above also include lupus, blindness secondary to glaucoma, bed-ridden, resident of [facility]. (Loly Lay) Social History: Disabled. residential resident. (Loly Lay) Physical Exam: CONSTITUTIONAL: Morbidly obese adult female, no dyspnea when talking, awake and alert, no obvious distress HEENT: Atraumatic and normocephalic, PERRL, EOMI. Tympanic membranes clear. Oropharynx clear, no exudate and moist pink mucosa. Airway patent. NECK: Short and thickened girth, supple, No lymphadenopathy. No meningismus. Cardiovascular: Normal S1/S2, tachycardia, this heart sounds secondary to body habitus, regular rhythm, without murmur rub or gallop. PULMONARY/CHEST: Symmetrical and nontender. Clear to auscultation bilaterally but diminished at bases secondary to body habitus. Good air movement. No accessory muscle usage. ABDOMEN: Soft, obesely round, nondistended, nontender, no rebound, no guarding , no peritoneal signs, no masses or organomegaly. No CVAT. EXTREMITIES: 2/2 pulses, no deformities, no clubbing, no cyanosis or edema. NEUROLOGICAL: no focal neuro deficits. GCS 15. Generalized poor physical conditioning. Speech is clear. SKIN: Warm and dry, pallor, no erythema. no rash. Good capillary refill. (Loly Lay) Constitutional: Initial Vital Signs Temperature (C) 37.0 C 02/19/17 15:49 Heart Rate 99 02/19/17 15:49 Respiratory Rate 16 02/19/17 15:49 Blood Pressure 108/85 H 02/19/17 15:49 O2 Sat (%) 91 L 02/19/17 15:49 O2 Delivery Mode Nasal Cannula O2 (L/minute) 2 Allergies/Adverse Reactions: codeine Allergy (Verified 01/22/17 15:51) Sulfa (Sulfonamide Antibiotics) Allergy (Verified 01/22/17 15:51) contrast dye Allergy (Uncoded 01/22/17 15:51) Home Medications: Medication Instructions Recorded ALPRAZolam [Xanax 0.5 MG (*)] 0.5 mg PO BID PRN 01/22/17 Acetaminophen [Tylenol 325mg (*)] 650 mg PO Q6HRS PRN 01/22/17 Bisacodyl [Dulcolax] 10 mg RC DAILY PRN 01/22/17 Brimonidine 0.2% [Alphagan 0.2%] 1 drops EACHEYE TID@,,01/22/17 Dexamethasone [Decadron 4 MG (*)] 4 mg PO BID 01/22/17 Diclofenac Sodium 1% [Voltaren Gel 1 owen TP Q6HRS PRN 01/22/17 (*)] Divalproex ER [Depakote ER 250 MG 250 mg PO BID 01/22/17 (*)] Dorzolamide 2% [Trusopt 2% (*)] 1 drops OP BID 01/22/17 Gabapentin [Neurontin 300 MG (*)] 300 mg PO TID@08,14,20 01/22/17 Herbals/Supplements -Info Only 1 ea PO DAILY 01/22/17 Hydrocodone/Acetaminophen [[place] 1 each PO Q6HRS PRN 01/22/17 5/325 (*)] Latanoprost 0.005% [Xalatan 0.005% 1 drops EACHEYE HS 01/22/17 (*)] Magnesium Hydroxide/Al Hydrox 20 ml PO Q4HRS PRN 01/22/17 [Mylanta Liquid] Rivaroxaban [Xarelto 10mg (*)] 20 mg PO HS 01/22/17 Sennosides/Docusate Sodium 1 each PO DAILY 01/22/17 [Senna-Docusate Sodium Tablet] Sertraline HCl [Zoloft 100mg (*)] 100 mg PO DAILY 01/22/17 Timolol 0.5% [TIMOPTIC 0.5% (*)] 1 drops EACHEYE BID 01/22/17 traZODone [traZODONE 50MG (*)] 50 mg PO HS 01/22/17 Ipratropium/Albuterol [Duoneb (*)] 3 ml IH Q4HRS PRN 01/23/17 Multivitamins [Multivitamin (*)] 1 each PO DAILY 01/23/17 Potassium Cl [Klor-Con 20 meq (*)] 40 meq PO BID@08,16 01/23/17 Acetaminophen [Tylenol 650/20.3ML 650 mg PO Q6 PRN #0 udcup 01/25/17 Oral Liq (*)] Azithromycin [Zithromax] 250 mg PO DAILY #4 tab 01/25/17 Benzonatate [Tessalon Pearles] 200 mg PO TID PRN #0 cap 01/25/17 Pantoprazole Sodium [Protonix 40mg 40 mg PO DAILY #60 tab 01/25/17 (*)] guaiFENesin/DEXTROMETHORPHAN 10 ml PO Q4HRS PRN #0 ml 01/25/17 [Robitussin Dm Oral Liquid (*)] Medical Decision Making - Diagnostics EKG Interpretation: 12 lead EKG: Indication: dyspnea Rhythm: Normal sinus [place]: Left Intervals: Left anterior fascicular block QRS: Normal ST segments: Nonspecific INTERPRETATION: Improved from EKG on 01/22/2017 The 12 lead EKG was interpreted by myself. (Loly Lay) Imaging Results: Imaging Impressions Chest X-Ray 02/19/17 15:53 Impression: Hypoventilation and bibasilar atelectasis similar to since 4 weeks prior. ED Course/Re-evaluation: EKG, chest x-ray, labs, ABG, IV medication, nebulizer therapy. Afebrile. no systemic signs. Chest x-ray shows atelectasis and hyperventilation unchanged from prior chest x- ray taken approximately 4 weeks ago. ABG is consistent with chronic respiratory failure; without significant hypercapnia. Hypoxia noted. No signs of acute coronary syndrome, pneumonia, pleural effusion, pneumothorax, acute respiratory distress, sepsis, CHF. 1730: Patient reassessed in O2 sats 95% on 2 L nasal cannula oxygen. Patient reports that she no longer has dyspnea. Patient needs to be evaluated for CPAP machine for obstructive sleep apnea and be on continuous oxygen 24/7 via nasal cannula at 2-3 L. This case was discussed with attending and no inpatient criteria; patient is okay to be discharged back to alf with follow-up. (Loly Lay) I discussed and evaluated this patient with Loly Lay. I agree that this patient is at baseline. It is most likely secondary to her body habitus. We will keep her on oxygen and she will follow up with her regular doctor. She has no acute process causing her shortness of breath. (Escobar Marrero) Differential Diagnosis: Shortness of breath including but not limited to pulmonary infectious process, COPD, asthma, pulmonary embolus and congestive heart failure. (Loly Lay) - Data Points Laboratory Results: Laboratory Results 02/19/17 16:03 02/19/17 16:03 02/19/17 02/19/17 02/19/17 16:30 16:03 16:03 WBC 11.01 10^3/uL H 10^3/uL (3.80-9.50) RBC 4.93 10^6/uL 10^6/uL (4.18-5.33) Hgb 12.1 g/dL L g/dL (12.6-16.3) Hct 40.7 % % (38.0-47.0) MCV 82.6 fL fL (81.5-99.8) MCH 24.5 pg L pg (27.9-34.1) MCHC 29.7 g/dL L g/dL (32.4-36.7) RDW 19.6 % H % (11.5-15.2) Plt Count 256 10^3/uL 10^3/uL (150-400) MPV 10.2 fL fL (8.7-11.7) Neut % (Auto) 81.4 % H % (39.3-74.2) Lymph % (Auto) 11.4 % L % (15.0-45.0) [place] % (Auto) 6.1 % % (4.5-13.0) Eos % (Auto) 0.0 % L % (0.6-7.6) Baso % (Auto) 0.2 % L % (0.3-1.7) Nucleat RBC Rel Count 0.2 % % (0.0-0.2) Absolute Neuts (auto) 8.97 10^3/uL H 10^3/uL (1.70-6.50) Absolute Lymphs (auto) 1.25 10^3/uL 10^3/uL (1.00-3.00) Absolute Monos (auto) 0.67 10^3/uL 10^3/uL (0.30-0.80) Absolute Eos (auto) 0.00 10^3/uL L 10^3/uL (0.03-0.40) Absolute Basos (auto) 0.02 10^3/uL 10^3/uL (0.02-0.10) Absolute Nucleated RBC 0.02 10^3/uL H 10^3/uL (0-0.01) Immature Gran % 0.9 % % (0.0-1.1) Immature Gran # 0.10 10^3/uL 10^3/uL (0.00-0.10) Puncture Site LEFT RADIAL Patient Temperature 37.0 DEGREES DEGREES pCO2 45 mmHg H mmHg (34-38) pO2 70 mmHg mmHg (65-75) Total CO2 32 mEq/L H mEq/L (23-27) ABG pH 7.45 (7.35-7.45) ABG HCO3 31 mEq/L H mEq/L (22-26) ABG O2 Saturation 94 % % (92-95) ABG Base Excess 6.2 mEq/L H mEq/L (-2.5-2.5) ABG Lactic Acid 1.9 mmol/L H mmol/L (0.5-1.6) Total O2 Concentration 3.5 LITERS LITERS Sodium 138 mEq/L mEq/L (134-144) Potassium 3.8 mEq/L mEq/L (3.5-5.2) Chloride 99 mEq/L mEq/L (97-110) Carbon Dioxide 30 mEq/l mEq/l (22-31) Anion Gap 9 mEq/L mEq/L (8-16) BUN 22 mg/dL mg/dL (7-23) Creatinine 0.6 mg/dL mg/dL (0.6-1.0) Estimated GFR > 60 Glucose 164 mg/dL H mg/dL (70-100) Calcium 8.5 mg/dL mg/dL (8.5-10.4) Total Bilirubin 0.3 mg/dL mg/dL (0.1-1.4) Conjugated Bilirubin 0.2 mg/dL mg/dL (0.0-0.5) Unconjugated Bilirubin 0.1 mg/dL mg/dL (0.0-1.1) AST 36 IU/L IU/L (14-46) ALT 62 IU/L H IU/L (9-52) Alkaline Phosphatase 51 IU/L IU/L (38-126) Troponin I < 0.012 ng/mL ng/mL (0.000-0.034) NT-Pro-B Natriuret Pep Total Protein 5.1 g/dL L g/dL (6.3-8.2) Albumin 2.8 g/dL L g/dL (3.5-5.0) 02/19/17 16:00 WBC RBC Hgb Hct MCV MCH MCHC RDW Plt Count MPV Neut % (Auto) Lymph % (Auto) [place] % (Auto) Eos % (Auto) Baso % (Auto) Nucleat RBC Rel Count Absolute Neuts (auto) Absolute Lymphs (auto) Absolute Monos (auto) Absolute Eos (auto) Absolute Basos (auto) Absolute Nucleated RBC Immature Gran % Immature Gran # Puncture Site Patient Temperature pCO2 pO2 Total CO2 ABG pH ABG HCO3 ABG O2 Saturation ABG Base Excess ABG Lactic Acid Total O2 Concentration Sodium Potassium Chloride Carbon Dioxide Anion Gap BUN Creatinine Estimated GFR Glucose Calcium Total Bilirubin Conjugated Bilirubin Unconjugated Bilirubin AST ALT Alkaline Phosphatase Troponin I NT-Pro-B Natriuret Pep 46 pg/mL pg/mL (0-125) Total Protein Albumin Medications Given: Discontinued Medications Methylprednisolone Sodium Succinate (Solu-Medrol) 125 mg IVP EDNOW ONE Stop: 02/19/17 15:53 Last Admin: 02/19/17 16:59 Dose: 125 mg Departure - Departure Disposition: Home, Routine, Self-Care Clinical Impression: Chronic respiratory failure with hypoxia, on home oxygen therapy, Supplemental oxygen dependent, Obesity hypoventilation syndrome, Obstructive sleep apnea of adult Clinical Impression: (Ruled Out): Chronic respiratory failure with hypoxia and hypercapnia Condition: Fair Instructions: Snoring (ED), Using Oxygen at Home (ED) Additional Instructions: Patient needs to be evaluated for CPAP machine for obstructive sleep apnea and be on continuous oxygen 24/7 via nasal cannula at 2-3 L. Referrals: ELICEO BARRAZA [Primary Care Provider] - 2-3 days without fail
[2017-02-19 16:07] LABS: % IMMATURE GRANULYOCYTES 0.9 % (0.0-1.1); ABSOLUTE NRBC COUNT 0.02 10^3/uL (0-0.01); ADD DIFF? NO; ADD MORPH? NO; ADD SCAN? NO; ATYPICAL LYMPHOCYTE FLAG 0 (0-99); FRAGMENT RBC FLAG 0 (0-99); HEMATOCRIT 40.7 % (38.0-47.0); HEMOGLOBIN 12.1 g/dL (12.6-16.3); LEFT SHIFT FLG 0 (0-99); LIPEMIA HEMOLYSIS FLAG 70 (0-99); MEAN CELL HEMOGLOBIN 24.5 pg (27.9-34.1); MEAN CELL HEMOGLOBIN CONCENTR. 29.7 g/dL (32.4-36.7); MEAN CELL VOLUME 82.6 fL (81.5-99.8); MEAN PLATELET VOLUME 10.2 fL (8.7-11.7); NRBC-AUTO% 0.2 % (0.0-0.2); PLATELET CLUMPS FLAG 10 (0-99); PLATELET COUNT 256 10^3/uL (150-400); RED BLOOD CELL COUNT 4.93 10^6/uL (4.18-5.33); RED CELL DISTRIBUTION WIDTH 19.6 % (11.5-15.2)
[2017-02-19 16:19] LABS: ALANINE AMINOTRANSFERASE 62 IU/L (9-52); ALBUMIN 2.8 g/dL (3.5-5.0); ALKALINE PHOSPHATASE 51 IU/L (38-126); ANION GAP 9 mEq/L (8-16); ASPARTATE AMINOTRANSFERASE 36 IU/L (14-46); BILIRUBIN,TOTAL 0.3 mg/dL (0.1-1.4); BILIRUBIN-CONJUGATED 0.2 mg/dL (0.0-0.5); BILIRUBIN-UNCONJUGATED 0.1 mg/dL (0.0-1.1); CALCIUM 8.5 mg/dL (8.5-10.4); CARBON DIOXIDE 30 mEq/l (22-31); CHLORIDE 99 mEq/L (97-110); CREATININE 0.6 mg/dL (0.6-1.0); GLOMERULAR FILTRATION RATE > 60; GLUCOSE 164 mg/dL (70-100); POTASSIUM 3.8 mEq/L (3.5-5.2); SODIUM 138 mEq/L (134-144); TOTAL PROTEIN 5.1 g/dL (6.3-8.2)
[2017-02-19 16:30] LABS: TROPONIN I < 0.012 ng/mL (0.000-0.034)
[2017-02-19 16:43] LABS: BASE EXCESS 6.2 mEq/L (-2.5-2.5); BICARBONATE 31 mEq/L (22-26); MEASURED OXYGEN SATURATION 94 % (92-95); PCO2 45 mmHg (34-38); PO2 70 mmHg (65-75); TCO2 32 mEq/L (23-27)
[2017-02-19 16:44] LABS: O2 CONCENTRATION LITERS 3.5 LITERS
--- NOTE | 2017-02-19 17:27 | CPEKG ---
Heart Rate: 87 RR Interval: 690 P-R Interval: 136 QRSD Interval: 84 QT Interval: 388 QTC Interval: 467 P [place]: 27 QRS [place]: -45 T Wave [place]: 11 EKG Severity - ABNORMAL ECG - EKG Impression: SINUS RHYTHM EKG Impression: LEFT ATRIAL ABNORMALITY EKG Impression: LEFT ANTERIOR FASCICULAR BLOCK EKG Impression: LEFT VENTRICULAR HYPERTROPHY Electronically Signed By: Escobar Marrero 19-Feb-2017 22:41:12
[2017-02-19 18:41] VITALS: BP 117/84; PULSE 94; O2SAT 93
== END 2017-02-19 19:15 | disposition home or self-care (01) ==
LOC: EDUNIT#
DX: J96.11 Chronic respiratory failure with hypoxia (principal); G47.33 Obstructive sleep apnea (adult) (pediatric)
CPT/HCPCS: 96374

== ENCOUNTER 2017-03-23 16:42 | Emergency (ER) | payer MEDICAID ==
--- NOTE | 2017-03-23 16:40 | EDPHY ---
H & P Constitutional: Initial Vital Signs Temperature (C) 36.8 C 03/23/17 17:03 Heart Rate 102 H 03/23/17 17:03 Respiratory Rate 22 H 03/23/17 17:03 Blood Pressure 113/76 03/23/17 17:03 O2 Sat (%) 94 03/23/17 17:03 O2 Delivery Mode Room Air O2 (L/minute) 4 Allergies/Adverse Reactions: codeine Allergy (Verified 01/22/17 15:51) Sulfa (Sulfonamide Antibiotics) Allergy (Verified 01/22/17 15:51) contrast dye Allergy (Uncoded 01/22/17 15:51) Home Medications: Medication Instructions Recorded ALPRAZolam [Xanax 0.5 MG (*)] 0.5 mg PO BID PRN 01/22/17 Acetaminophen [Tylenol 325mg (*)] 650 mg PO Q6HRS PRN 01/22/17 Bisacodyl [Dulcolax] 10 mg RC DAILY PRN 01/22/17 Brimonidine 0.2% [Alphagan 0.2%] 1 drops EACHEYE TID@,,01/22/17 Dexamethasone [Decadron 4 MG (*)] 4 mg PO BID 01/22/17 Diclofenac Sodium 1% [Voltaren Gel 1 owen TP Q6HRS PRN 01/22/17 (*)] Divalproex ER [Depakote ER 250 MG 250 mg PO BID 01/22/17 (*)] Dorzolamide 2% [Trusopt 2% (*)] 1 drops OP BID 01/22/17 Gabapentin [Neurontin 300 MG (*)] 300 mg PO TID@,,01/22/17 Herbals/Supplements -Info Only 1 ea PO DAILY 01/22/17 Hydrocodone/Acetaminophen [[place] 1 each PO Q6HRS PRN 01/22/17 5/325 (*)] Latanoprost 0.005% [Xalatan 0.005% 1 drops EACHEYE HS 01/22/17 (*)] Magnesium Hydroxide/Al Hydrox 20 ml PO Q4HRS PRN 01/22/17 [Mylanta Liquid] Rivaroxaban [Xarelto 10mg (*)] 20 mg PO HS 01/22/17 Sennosides/Docusate Sodium 1 each PO DAILY 01/22/17 [Senna-Docusate Sodium Tablet] Sertraline HCl [Zoloft 100mg (*)] 100 mg PO DAILY 01/22/17 Timolol 0.5% [TIMOPTIC 0.5% (*)] 1 drops EACHEYE BID 01/22/17 traZODone [traZODONE 50MG (*)] 50 mg PO HS 01/22/17 Ipratropium/Albuterol [Duoneb (*)] 3 ml IH Q4HRS PRN 01/23/17 Multivitamins [Multivitamin (*)] 1 each PO DAILY 01/23/17 Potassium Cl [Klor-Con 20 meq (*)] 40 meq PO BID@08,16 01/23/17 Acetaminophen [Tylenol 650/20.3ML 650 mg PO Q6 PRN #0 udcup 01/25/17 Oral Liq (*)] Azithromycin [Zithromax] 250 mg PO DAILY #4 tab 01/25/17 Benzonatate [Tessalon Pearles] 200 mg PO TID PRN #0 cap 01/25/17 Pantoprazole Sodium [Protonix 40mg 40 mg PO DAILY #60 tab 01/25/17 (*)] guaiFENesin/DEXTROMETHORPHAN 10 ml PO Q4HRS PRN #0 ml 01/25/17 [Robitussin Dm Oral Liquid (*)] Medical Decision Making - Diagnostics Imaging: Discussed imaging studies w/ call or contact centre coach Radiologist, I viewed and interpreted images myself ED Course/Re-evaluation: CHIEF COMPLAINT: Chest pain and shortness of breath HISTORY OF PRESENT ILLNESS: The patient is a 52 y/o female who lives at [facility], complaining of chest pain and shortness of breath. She has a history of chronic chest pain and shortness. She was seen in this ED for the past two months for similar symptoms. She also complains of a dry mouth. The patient admits to taking her Xanax regularly. Denies abdominal pain, fever, vomiting or other pertinent symptoms. Prior medical records reviewed including ED visit on 02/19/17 with Loly ANDRADE. REVIEW OF SYSTEMS: A 10 point review of systems was performed and is negative with the exception of the elements mentioned in the history of present illness. PHYSICAL EXAM: HR, BP, O2 Sat, RR. Temp noted General Appearance: Morbidly obese, anxious, alert, well hydrated, appropriate , and non-toxic appearing. Head: Atraumatic without scalp tenderness or obvious injury Eyes: Pupils equal, round, reactive to light and accommodation, EOMI, no trauma , no injection. Ears: Clear bilaterally, no perforation, normal landmarks Nose: Atraumatic, no rhinorrhea, clear. Throat: Mildly mucus membranes moist. Neck: Supple, 2+ carotid upstroke, nontender, no lymphadenopathy. Respiratory: No retractions, no distress, no wheezes, and no accessory muscle use. Lungs are clear to auscultation bilaterally. Cardiovascular: Regular rate and rhythm, no murmurs, rubs, or gallops. Good capillary refill all extremities. Gastrointestinal: Abdomen is soft, nontender, non-distended, no masses, no rebound, no guarding, no peritoneal signs. Musculoskeletal: Normal active ROM of all extremities, atraumatic. Neurological: Alert, appropriate, and interactive. Non-focal neuro. Skin: No rashes, good turgor, no nodules on palpation. Past medical history: Lupus, blindness secondary to glaucoma, sleep apnea Past surgical history: Denies Family history: Denies Social history: Lives in [facility] DIAGNOSTICS/PROCEDURES/CRITICAL CARE TIME: The 12 lead EKG was interpreted by myself. See hard copy and/or "tracemaster" electronic copy for interpretation. DIFFERENTIAL DIAGNOSIS: The differential diagnosis for the patient's chest pain included but was not limited to myocardial ischemia, pulmonary embolus, chest wall pain, pleural inflammation, and pulmonary infectious causes. MEDICAL DECISION MAKING: The patient is a 52 y/o female who presents with chest pain. She is morbidly obese and has chronic chest pain and shortness of breath. She continues to have shortness of breath even with her CPAP machine. Plan on EKG, labs, IV, and 1mg IV Ativan. Reassessed patient and discussed negative lab and EKG findings. Return precautions provided; patient is comfortable with this plan and will be discharged back to her custodial. - Data Points Laboratory Results: Laboratory Results 03/23/17 17:02 03/23/17 17:02 03/23/17 03/23/17 17: 17:02 WBC 10.77 10^3/uL H 10^3/uL (3.80-9.50) RBC 4.88 10^6/uL 10^6/uL (4.18-5.33) Hgb 12.2 g/dL L g/dL (12.6-16.3) Hct 40.8 % % (38.0-47.0) MCV 83.6 fL fL (81.5-99.8) MCH 25.0 pg L pg (27.9-34.1) MCHC 29.9 g/dL L g/dL (32.4-36.7) RDW 19.1 % H % (11.5-15.2) Plt Count 203 10^3/uL 10^3/uL (150-400) MPV 10.0 fL fL (8.7-11.7) Neut % (Auto) 78.5 % H % (39.3-74.2) Lymph % (Auto) 11.3 % L % (15.0-45.0) [place] % (Auto) 8.0 % % (4.5-13.0) Eos % (Auto) 0.1 % L % (0.6-7.6) Baso % (Auto) 0.2 % L % (0.3-1.7) Nucleat RBC Rel Count 0.3 % H % (0.0-0.2) Absolute Neuts (auto) 8.45 10^3/uL H 10^3/uL (1.70-6.50) Absolute Lymphs (auto) 1.22 10^3/uL 10^3/uL (1.00-3.00) Absolute Monos (auto) 0.86 10^3/uL H 10^3/uL (0.30-0.80) Absolute Eos (auto) 0.01 10^3/uL L 10^3/uL (0.03-0.40) Absolute Basos (auto) 0.02 10^3/uL 10^3/uL (0.02-0.10) Absolute Nucleated RBC 0.03 10^3/uL H 10^3/uL (0-0.01) Immature Gran % 1.9 % H % (0.0-1.1) Immature Gran # 0.21 10^3/uL H 10^3/uL (0.00-0.10) Sodium 139 mEq/L mEq/L (134-144) Potassium 3.7 mEq/L mEq/L (3.5-5.2) Chloride 101 mEq/L mEq/L (97-110) Carbon Dioxide 31 mEq/l mEq/l (22-31) Anion Gap 7 mEq/L L mEq/L (8-16) BUN 24 mg/dL H mg/dL (7-23) Creatinine 0.5 mg/dL L mg/dL (0.6-1.0) Estimated GFR > 60 Glucose 179 mg/dL H mg/dL (70-100) Calcium 8.4 mg/dL L mg/dL (8.5-10.4) Troponin I < 0.012 ng/mL ng/mL (0.000-0.034) NT-Pro-B Natriuret Pep 39 pg/mL pg/mL (0-125) Medications Given: Discontinued Medications Lorazepam (Ativan Injection) 1 mg IVP EDNOW ONE Stop: 03/23/17 17:21 Last Admin: 03/23/17 17:29 Dose: 1 mg Departure - Departure Disposition: Home, Routine, Self-Care Clinical Impression: Chronic respiratory failure with hypoxia, On home oxygen therapy, Supplemental oxygen dependent, Obesity hypoventilation syndrome, Obstructive sleep apnea, Anxiety Condition: Good Instructions: Snoring (ED), Using Oxygen at Home (ED), Anxiety (ED) Additional Instructions: 1. Follow up with your primary care provider in the next 3-5 days if your symptoms continue. 2. Return to the ED if you experience worsening of your symptoms. Referrals: Santos Verduzco MD [place] [place] - As per Instructions Report Scribed for: Escobar Marrero Report Scribed by: Jenny Cantu Date of Report: 03/23/17 Time of Report: 16:57
[2017-03-23 17:05] VITALS: TEMP 98.2
--- NOTE | 2017-03-23 17:05 | CPEKG ---
Heart Rate: 104 RR Interval: 577 P-R Interval: 132 QRSD Interval: 82 QT Interval: 356 QTC Interval: 469 P [place]: 32 QRS [place]: -51 T Wave [place]: 17 EKG Severity - ABNORMAL ECG - EKG Impression: SINUS TACHYCARDIA EKG Impression: LEFT ANTERIOR FASCICULAR BLOCK EKG Impression: CONSIDER LEFT VENTRICULAR HYPERTROPHY Electronically Signed By: Escobar Marrero 23-Mar-2017 20:35:31
[2017-03-23 17:13] LABS: % IMMATURE GRANULYOCYTES 1.9 % (0.0-1.1); ABSOLUTE IMMATURE GRANULOCYTES 0.21 10^3/uL (0.00-0.10); ABSOLUTE NRBC COUNT 0.03 10^3/uL (0-0.01); ADD DIFF? NO; ADD MORPH? NO; ADD SCAN? NO; ATYPICAL LYMPHOCYTE FLAG 0 (0-99); FRAGMENT RBC FLAG 20 (0-99); HEMATOCRIT 40.8 % (38.0-47.0); HEMOGLOBIN 12.2 g/dL (12.6-16.3); LEFT SHIFT FLG 10 (0-99); LIPEMIA HEMOLYSIS FLAG 70 (0-99); MEAN CELL HEMOGLOBIN CONCENTR. 29.9 g/dL (32.4-36.7); MEAN CELL VOLUME 83.6 fL (81.5-99.8); NRBC-AUTO% 0.3 % (0.0-0.2); PLATELET CLUMPS FLAG 10 (0-99); PLATELET COUNT 203 10^3/uL (150-400); RED BLOOD CELL COUNT 4.88 10^6/uL (4.18-5.33); RED CELL DISTRIBUTION WIDTH 19.1 % (11.5-15.2)
[2017-03-23] MEDS ORDERED: LORazepam 2 MG/ML INJ IVP ONE (17:20)
[2017-03-23 17:30] LABS: ANION GAP 7 mEq/L (8-16); CALCIUM 8.4 mg/dL (8.5-10.4); CARBON DIOXIDE 31 mEq/l (22-31); CHLORIDE 101 mEq/L (97-110); CREATININE 0.5 mg/dL (0.6-1.0); GLOMERULAR FILTRATION RATE > 60; GLUCOSE 179 mg/dL (70-100); POTASSIUM 3.7 mEq/L (3.5-5.2); SODIUM 139 mEq/L (134-144)
[2017-03-23 17:40] LABS: TROPONIN I < 0.012 ng/mL (0.000-0.034)
[2017-03-23 20:55] VITALS: BP 129/88; PULSE 95; RESP 19; O2SAT 95
== END 2017-03-23 21:01 | disposition home or self-care (01) ==
LOC: EDUNIT#
DX: J96.11 Chronic respiratory failure with hypoxia (principal); E66.2 Morbid (severe) obesity with alveolar hypoventilation; F41.9 Anxiety disorder, unspecified; Z99.81 Dependence on supplemental oxygen
CPT/HCPCS: 96374; J2060

== ENCOUNTER 2017-04-25 10:37 | Emergency (ER) | payer MEDICAID, OTHER ==
[2017-04-25] MEDS ORDERED: PROMETHAZINE HCL 25 MG/ML INJ IVP ONE (13:05)
[2017-04-25] MEDS ORDERED: LORazepam 2 MG/ML INJ IVP ONE (13:05)
[2017-04-25 14:03] LABS: % IMMATURE GRANULYOCYTES 1.6 % (0.0-1.1); ABSOLUTE IMMATURE GRANULOCYTES 0.17 10^3/uL (0.00-0.10); ADD DIFF? NO; ADD MORPH? NO; ADD SCAN? NO; ATYPICAL LYMPHOCYTE FLAG 0 (0-99); FRAGMENT RBC FLAG 0 (0-99); HEMATOCRIT 42.7 % (38.0-47.0); LEFT SHIFT FLG 10 (0-99); LIPEMIA HEMOLYSIS FLAG 80 (0-99); MEAN CELL HEMOGLOBIN 26.1 pg (27.9-34.1); MEAN CELL HEMOGLOBIN CONCENTR. 30.4 g/dL (32.4-36.7); MEAN CELL VOLUME 85.7 fL (81.5-99.8); PLATELET CLUMPS FLAG 0 (0-99); PLATELET COUNT 173 10^3/uL (150-400); RED BLOOD CELL COUNT 4.98 10^6/uL (4.18-5.33); RED CELL DISTRIBUTION WIDTH 19.8 % (11.5-15.2)
[2017-04-25 14:10] LABS: ANION GAP 8 mEq/L (8-16); C-REACTIVE PROTEIN 9.1 mg/L (<10.0); CALCIUM 8.7 mg/dL (8.5-10.4); CARBON DIOXIDE 33 mEq/l (22-31); CHLORIDE 99 mEq/L (97-110); CREATININE 0.4 mg/dL (0.6-1.0); GLOMERULAR FILTRATION RATE > 60; GLUCOSE 131 mg/dL (70-100); POTASSIUM 4.2 mEq/L (3.5-5.2); SODIUM 140 mEq/L (134-144)
[2017-04-25 14:24] VITALS: RESP 22; TEMP 98.4
[2017-04-25 14:30] LABS: SEDIMENTATION RATE 8 MM/HR (0-30)
--- NOTE | 2017-04-25 15:10 | EDPHY ---
H & P Stated Complaint: headache for 2 weeks Time Seen by Provider: 04/25/17 10:57 HPI/ROS: Chief complaint: Headache History of present illness: This is a 52-year-old female who presents to the emergency department for evaluation of headache. She reports she has had headache for the last 2 weeks. She reports pain around the right eye and right side of the head especially around the buddhism radiating down the right side of the neck. She denies any precipitating factors. She denies any alleviating factors. She has a history of headaches although this feels different. She is most concerned she cannot get rid of it. She denies other associated signs or symptoms including no history of trauma, the no fever or cold symptoms, no neurologic symptoms beyond the headache such as paresthesias, weakness or paralysis or bowel or bladder dysfunction. Review of systems: A 10 point review of systems was obtained and other than described above was negative - Personal History LMP (Females 10-55): Unknown Current Tetanus/Diphtheria Vaccine: Unsure Current Tetanus Diphtheria and Acellular Pertussis (TDAP): Unsure - Medical/Surgical History Hx Asthma: No Hx Chronic Respiratory Disease: Yes Hx Diabetes: No Hx Cardiac Disease: No Hx Renal Disease: No Hx Cirrhosis: No Hx Alcoholism: No Hx HIV/AIDS: No Hx Splenectomy or Spleen Trauma: No Other PMH: lupus, blindness, PE, Bronchiatis, musckle weakness, necrot. faciatis RLE, panic attacks, anxiety, copd - Social History Smoking Status: Never smoked - Physical Exam Exam: General Appearance: Alert, nontoxic. Eyes: Pupils equal and round no pallor or injection. ENT, Mouth: Mucous membranes moist. Respiratory: There are no retractions, lungs are clear to auscultation. Cardiovascular: Regular rate and rhythm. Gastrointestinal: Abdomen is soft and non tender, no masses, bowel sounds normal. Neurological: Alert and oriented x4. Cranial nerves 2-12 grossly intact. Strength and sensation intact and symmetrical. Skin: Warm and dry, no rashes. Musculoskeletal: Neck is supple non tender. Extremities are symmetrical, full range of motion. Psychiatric: Patient is oriented X 3, there is no agitation. DIFFERENTIAL DIAGNOSIS: After history and physical exam differential diagnosis was considered for [ ] Constitutional: Initial Vital Signs Temperature (C) 36.8 C 04/25/17 10:45 Heart Rate 113 H 04/25/17 10:45 Respiratory Rate 22 H 04/25/17 10:45 Blood Pressure 100/68 04/25/17 10:45 O2 Sat (%) 92 04/25/17 10:45 O2 Delivery Mode Nasal Cannula O2 (L/minute) 5 Allergies/Adverse Reactions: codeine Allergy (Verified 01/22/17 15:51) Sulfa (Sulfonamide Antibiotics) Allergy (Verified 01/22/17 15:51) contrast dye Allergy (Uncoded 01/22/17 15:51) Home Medications: Medication Instructions Recorded ALPRAZolam [Xanax 0.5 MG (*)] 0.5 mg PO BID PRN 01/22/17 Acetaminophen [Tylenol 325mg (*)] 650 mg PO Q6HRS PRN 01/22/17 Bisacodyl [Dulcolax] 10 mg RC DAILY PRN 01/22/17 Brimonidine 0.2% [Alphagan 0.2%] 1 drops EACHEYE TID@,,01/22/17 Dexamethasone [Decadron 4 MG (*)] 4 mg PO BID 01/22/17 Diclofenac Sodium 1% [Voltaren Gel 1 owen TP Q6HRS PRN 01/22/17 (*)] Divalproex ER [Depakote ER 250 MG 250 mg PO BID 01/22/17 (*)] Dorzolamide 2% [Trusopt 2% (*)] 1 drops OP BID 01/22/17 Gabapentin [Neurontin 300 MG (*)] 300 mg PO TID@,,01/22/17 Herbals/Supplements -Info Only 1 ea PO DAILY 01/22/17 Hydrocodone/Acetaminophen [[place] 1 each PO Q6HRS PRN 01/22/17 5/325 (*)] Latanoprost 0.005% [Xalatan 0.005% 1 drops EACHEYE HS 01/22/17 (*)] Magnesium Hydroxide/Al Hydrox 20 ml PO Q4HRS PRN 01/22/17 [Mylanta Liquid] Rivaroxaban [Xarelto 10mg (*)] 20 mg PO HS 01/22/17 Sennosides/Docusate Sodium 1 each PO DAILY 01/22/17 [Senna-Docusate Sodium Tablet] Sertraline HCl [Zoloft 100mg (*)] 100 mg PO DAILY 01/22/17 Timolol 0.5% [TIMOPTIC 0.5% (*)] 1 drops EACHEYE BID 01/22/17 traZODone [traZODONE 50MG (*)] 50 mg PO HS 01/22/17 Ipratropium/Albuterol [Duoneb (*)] 3 ml IH Q4HRS PRN 01/23/17 Multivitamins [Multivitamin (*)] 1 each PO DAILY 01/23/17 Potassium Cl [Klor-Con 20 meq (*)] 40 meq PO BID@08,16 01/23/17 Acetaminophen [Tylenol 650/20.3ML 650 mg PO Q6 PRN #0 udcup 01/25/17 Oral Liq (*)] Azithromycin [Zithromax] 250 mg PO DAILY #4 tab 01/25/17 Benzonatate [Tessalon Pearles] 200 mg PO TID PRN #0 cap 01/25/17 Pantoprazole Sodium [Protonix 40mg 40 mg PO DAILY #60 tab 01/25/17 (*)] guaiFENesin/DEXTROMETHORPHAN 10 ml PO Q4HRS PRN #0 ml 01/25/17 [Robitussin Dm Oral Liquid (*)] Hydrocodone/APAP 5/325 [[place] 1 tab PO Q6H #6 tab 04/25/17 5/325 (*)] Medical Decision Making - Diagnostics Imaging: Discussed imaging studies w/ orthopedically impaired teacher Radiologist ED Course/Re-evaluation: Patient discussed at length with my secondary supervising physician Dr. Jovanni Smith. Patient presents to the emergency department for a 2 week history of headache. On presentation she is nontoxic. Physical exam is benign including a nonfocal neurologic exam. Laboratory studies are nonspecific but non concerning at this time. Imaging studies without acute findings as discussed with Radiology. Patient is symptomatically treated and reports improvement in symptoms. She is comfortable being discharged home. She was discharged to follow up with her primary care doctor for recheck. Return precautions are given. Differential Diagnosis: Included but not limited to chronic daily headache, migraine headache, cluster headache, tension headache, temporal arteritis, intracranial lesion or bleed - Data Points Laboratory Results: Laboratory Results 04/25/17 13:45 04/25/17 13:45 Medications Given: Discontinued Medications Dexamethasone (Decadron Injection) 10 mg IVP EDNOW ONE Stop: 04/25/17 15:13 Last Admin: 04/25/17 17:30 Dose: Not Given Diphenhydramine HCl (Benadryl Injection) 25 mg IVP EDNOW ONE Stop: 04/25/17 13:06 Last Admin: 04/25/17 14:21 Dose: 25 mg Lorazepam (Ativan Injection) 1 mg IVP EDNOW ONE Stop: 04/25/17 13:06 Last Admin: 04/25/17 14:21 Dose: 1 mg Promethazine HCl (Phenergan) 6.25 mg IVP EDNOW ONE Stop: 04/25/17 13:06 Last Admin: 04/25/17 14:21 Dose: 6.25 mg Departure - Departure Disposition: Home, Routine, Self-Care Clinical Impression: Headache Qualifiers: Headache type: unspecified Headache chronicity pattern: acute headache Intractability: not intractable Qualified Code(s): R51 - Headache Condition: Good Instructions: Acute Headache (ED) Additional Instructions: Follow-up with your primary care doctor for continued evaluation and care If symptoms worsen or new symptoms develop return to the emergency room for recheck Referrals: NONE *PRIMARY CARE P,. [Primary Care Provider] - As per Instructions [facility],. [Clinic] - As per Instructions Prescriptions: Hydrocodone/APAP 5/325 [[place] 5/325 (*)] 1 tab PO Q6H #6 tab
[2017-04-25] MEDS ORDERED: DEXAMETHASONE 10 MG/ML VIAL IVP ONE (15:12)
[2017-04-25 17:32] VITALS: BP 128/78; PULSE 102; O2SAT 91
== END 2017-04-25 17:41 | disposition home or self-care (01) ==
LOC: EDUNIT#
DX: R51 Headache (principal); J44.9 Chronic obstructive pulmonary disease, unspecified; Z79.01 Long term (current) use of anticoagulants
CPT/HCPCS: 96374; J1200; J2060; J2550

== ENCOUNTER 2017-04-27 11:05 | Inpatient (IN) | payer MEDICAID ==
--- NOTE | 2017-04-27 11:20 | CPEKG ---
Heart Rate: 120 RR Interval: 500 P-R Interval: 128 QRSD Interval: 74 QT Interval: 332 QTC Interval: 470 P [place]: 34 QRS [place]: -48 T Wave [place]: 42 EKG Severity - ABNORMAL ECG - EKG Impression: SINUS TACHYCARDIA EKG Impression: LEFT ANTERIOR FASCICULAR BLOCK EKG Impression: LEFT VENTRICULAR HYPERTROPHY Electronically Signed By: Jovanni Smith 27-Apr-2017 15:22:20
--- NOTE | 2017-04-27 11:20 | CPEKG ---
Heart Rate: 120 RR Interval: 500 P-R Interval: 128 QRSD Interval: 74 QT Interval: 332 QTC Interval: 470 P [place]: 34 QRS [place]: -48 T Wave [place]: 42 EKG Severity - ABNORMAL ECG - EKG Impression: SINUS TACHYCARDIA EKG Impression: LEFT ANTERIOR FASCICULAR BLOCK EKG Impression: LEFT VENTRICULAR HYPERTROPHY Electronically Signed By: Jovanni Smith 27-Apr-2017 15:22:20
[2017-04-27] MEDS ORDERED: NS 500 ML IV ONE (11:29)
[2017-04-27 11:41] LABS: INR 0.92 (0.83-1.16); PROTIME(PATIENT) 12.3 SEC (12.0-15.0)
[2017-04-27 11:43] LABS: PLATELET COUNT 181 10^3/uL (150-400)
--- NOTE | 2017-04-27 13:34 | EDPHY ---
H & P Time Seen by Provider: 04/27/17 11:21 HPI/ROS: HPI Shortness of breath, hypoxia. 52-year-old female by ambulance from [facility]. She has a history of obesity and hypoventilation syndrome as well as bronchitis. She was admitted to our hospital for this in January of this year. She complains of worsening shortness of breath over the last week, significantly worse today. Nursing staff at [facility] sent her here for hypoxia despite nasal cannula oxygen. Her baseline oxygen requirement is 3-4 L by nasal cannula. She has not had chest pain. She denies cough. No history of fever. ROS: Constitutional: No fever, no chills. No weakness. Eyes: No discharge. No changes in vision. ENT: No sore throat. No nasal congestion or rhinorrhea. Respiratory: No cough. As above. Cardiac: No chest pain, no palpitations. Gastrointestinal: No abdominal pain, no vomiting, no diarrhea. Genitourinary: No hematuria. No dysuria or increased frequency with urination. Musculoskeletal: No back pain. No neck pain. No myalgias or arthralgias. Skin: No rashes. Neurological: No headache. No focal weakness or altered sensation. Past medical history: As above, lupus, blindness secondary to glaucoma, morbid obesity, anxiety. Social history: Nonsmoker. No alcohol. Here by herself. As above. Physical Exam: General Appearance: Eyes are shut, morbidly obese. This patient is responding to questions appropriately and in full sentences. Eyes: Pupils equal and round no pallor or injection. No lid edema, erythema or injection. ENT, Mouth: Mucous membranes are moist. The pharyngeal tissues are unremarkable. No edema or swelling. No asymmetry suggestive of abscess. No erythema or exudates. Respiratory: There are no retractions, lungs are clear to auscultation anteriorly with good air movement bilaterally. I do not appreciate any wheezing. No tachypnea. Cardiovascular: Regular rate and rhythm. No murmur. Gastrointestinal: Obese habitus. Abdomen is soft and nontender, no masses, bowel sounds normal. No focal tenderness at McBurney's point. No Mandujano sign. Neurological: Motor sensory function is grossly intact. Cranial nerves are normal. Gait is normal. Skin: Warm and dry. Venous stasis dermatitis of the lower extremities. Musculoskeletal: Neck is supple and nontender. Extremities are symmetrical. All joints range without pain or impingement. Psychiatric: No agitation. No depression. Database: EKG: EKG time is 11:17 a.m.; EKG shows a narrow complex normal sinus rhythm with a ventricular rate of 120. Left anterior fascicular block noted. Left ventricular hypertrophy noted. The MO, QRS, QT intervals are within normal limits. There are no ST-T wave changes indicative of ischemic or injury pattern. No evidence of right heart strain. Interpreted by me. Imaging: Chest x-ray AP portable; the cardiac mediastinal silhouette is unremarkable. Hypoventilatory changes with atelectasis, similar to prior study from January. No evidence of infiltrate or pneumothorax. No acute cardiopulmonary disease process noted. Interpreted by me. Procedures: Emergency department course: IV established. Her vital signs have been reviewed. EKG performed and reviewed by myself. She requires facemask oxygen between 10 and 15 L to maintain pulse oximetries in the mid to low 90s. She does not have any wheezing. She is maintaining her pulse oximetry's in the low to mid 90s on facemask oxygen as noted. I do not feel that steroids or beta agonists are indicated at this time. Hypoxia is likely secondary to her obesity related hypoventilatory syndrome. 1:30 p.m., hospitalist paged. Discussed admission with the patient. All of her questions were answered. 1:40 p.m., spoke with hospitalist, . Patient accepted for admission to the step-down unit. 2:30 PM, Dr. Calderon is currently at the bedside. She agrees with above management. The patient's remaining emergency department course under my care has been uneventful. She was admitted in guarded condition to the step down unit. Differential Diagnosis: The differential diagnosis on this patient includes but is not limited to hypoxemia secondary to hypoventilation and obesity, bronchitis. Reactive airway disease process, pulmonary embolism, acute coronary syndrome, congestive heart failure exacerbation unlikely. This represents a partial list of diagnoses considered. These considerations are based on history, physical exam , past history, reassessment and diagnostic testing. Smoking Status: Never smoked Constitutional: Initial Vital Signs Temperature (C) 37.0 C 04/27/17 11:12 Heart Rate 122 H 04/27/17 11:12 Respiratory Rate 18 04/27/17 11:12 O2 Sat (%) 97 04/27/17 11:12 O2 Delivery Mode Non-Rebreather Mask O2 (L/minute) 15 Allergies/Adverse Reactions: codeine Allergy (Verified 01/22/17 15:51) Sulfa (Sulfonamide Antibiotics) Allergy (Verified 01/22/17 15:51) contrast dye Allergy (Uncoded 01/22/17 15:51) Home Medications: Medication Instructions Recorded ALPRAZolam [Xanax 0.5 MG (*)] 0.5 mg PO Q6H PRN 01/22/17 Acetaminophen [Tylenol 325mg (*)] 650 mg PO Q6HRS PRN 01/22/17 Bisacodyl [Dulcolax] 10 mg RC DAILY PRN 01/22/17 Brimonidine 0.2% [Alphagan 0.2%] 1 drops EACHEYE TID@,,20 01/22/17 Dexamethasone [Decadron 4 MG (*)] 4 mg PO BID 01/22/17 Diclofenac Sodium 1% [Voltaren Gel 1 owen TP Q6HRS PRN 01/22/17 (*)] Divalproex ER [Depakote ER 250 MG 250 mg PO BID 01/22/17 (*)] Dorzolamide 2% [Trusopt 2% (*)] 1 drops OP BID 01/22/17 Gabapentin [Neurontin 300 MG (*)] 300 mg PO TID@,,20 01/22/17 Hydrocodone/Acetaminophen [[place] 1 each PO Q6HRS PRN 01/22/17 5/325 (*)] Latanoprost 0.005% [Xalatan 0.005% 1 drops EACHEYE HS 01/22/17 (*)] Magnesium Hydroxide/Al Hydrox 20 ml PO Q4HRS PRN 01/22/17 [Mylanta Liquid] Rivaroxaban [Xarelto 10mg (*)] 20 mg PO HS 01/22/17 Sennosides/Docusate Sodium 1 each PO DAILY 01/22/17 [Senna-Docusate Sodium Tablet] Sertraline HCl [Zoloft 100mg (*)] 100 mg PO DAILY 01/22/17 Timolol 0.5% [TIMOPTIC 0.5% (*)] 1 drops EACHEYE BID 01/22/17 traZODone [traZODONE 50MG (*)] 50 mg PO HS 01/22/17 Ipratropium/Albuterol [Duoneb (*)] 3 ml IH Q4HRS PRN 01/23/17 Multivitamins [Multivitamin (*)] 1 each PO DAILY 01/23/17 Potassium Cl [Klor-Con 20 meq (*)] 40 meq PO BID@08,16 01/23/17 Acetaminophen [Tylenol 650/20.3ML 650 mg PO Q6 PRN #0 udcup 01/25/17 Oral Liq (*)] Benzonatate [Tessalon Pearles] 200 mg PO TID PRN #0 cap 01/25/17 guaiFENesin/DEXTROMETHORPHAN 10 ml PO Q4HRS PRN #0 ml 01/25/17 [Robitussin Dm Oral Liquid (*)] Ipratropium/Albuterol [Duoneb (*)] 3 ml IH Q4H PRN 04/27/17 Neomy Sulf/Bacitrac Zn/Poly 1 owen TP BID 04/27/17 [Triple Antibiotic Oint tube (*)] Omeprazole 20 mg PO DAILY 04/27/17 Medical Decision Making - Diagnostics Imaging Results: Imaging Impressions Chest X-Ray 04/27/17 11:30 Impression: Similar findings to the prior study with hypoventilatory changes and atelectasis identified. - Data Points Laboratory Results: Laboratory Results 04/27/17 11:05 04/27/17 11:05 04/27/17 04/27/17 04/27/17 11:05 11:05 11:05 WBC 11.84 10^3/uL H 10^3/uL (3.80-9.50) RBC 5.16 10^6/uL 10^6/uL (4.18-5.33) Hgb 13.5 g/dL g/dL (12.6-16.3) Hct 44.0 % % (38.0-47.0) MCV 85.3 fL fL (81.5-99.8) MCH 26.2 pg L pg (27.9-34.1) MCHC 30.7 g/dL L g/dL (32.4-36.7) RDW 20.3 % H % (11.5-15.2) Plt Count 181 10^3/uL 10^3/uL (150-400) MPV 10.3 fL fL (8.7-11.7) Neut % (Auto) 76.3 % H % (39.3-74.2) Lymph % (Auto) 12.8 % L % (15.0-45.0) [place] % (Auto) 7.8 % % (4.5-13.0) Eos % (Auto) 0.8 % % (0.6-7.6) Baso % (Auto) 0.5 % % (0.3-1.7) Nucleat RBC Rel Count 0.2 % % (0.0-0.2) Absolute Neuts (auto) 9.03 10^3/uL H 10^3/uL (1.70-6.50) Absolute Lymphs (auto) 1.52 10^3/uL 10^3/uL (1.00-3.00) Absolute Monos (auto) 0.92 10^3/uL H 10^3/uL (0.30-0.80) Absolute Eos (auto) 0.10 10^3/uL 10^3/uL (0.03-0.40) Absolute Basos (auto) 0.06 10^3/uL 10^3/uL (0.02-0.10) Absolute Nucleated RBC 0.02 10^3/uL H 10^3/uL (0-0.01) Immature Gran % 1.8 % H % (0.0-1.1) Immature Gran # 0.21 10^3/uL H 10^3/uL (0.00-0.10) Platelet Estimate ADEQUATE (ADEQ) Polychromasia 1+ H Microcytic Cells 1+ H PT 12.3 SEC SEC (12.0-15.0) INR 0.92 (0.83-1.16) APTT 22.5 SEC L SEC (23.0-38.0) D-Dimer 0.33 ug/mLFEU ug/mLFEU (0.00-0.50) Sodium 142 mEq/L mEq/L (134-144) Potassium 3.6 mEq/L mEq/L (3.5-5.2) Chloride 98 mEq/L mEq/L (97-110) Carbon Dioxide 34 mEq/l H mEq/l (22-31) Anion Gap 10 mEq/L mEq/L (8-16) BUN 19 mg/dL mg/dL (7-23) Creatinine 0.5 mg/dL L mg/dL (0.6-1.0) Estimated GFR > 60 Glucose 134 mg/dL H mg/dL (70-100) Calcium 8.8 mg/dL mg/dL (8.5-10.4) Troponin I < 0.012 ng/mL ng/mL (0.000-0.034) NT-Pro-B Natriuret Pep 62 pg/mL pg/mL (0-125) Medications Given: Discontinued Medications Sodium Chloride (Ns) 500 mls @ 1,000 mls/hr IV EDNOW ONE PRN Reason: Protocol Stop: 04/27/17 11:58 Last Admin: 04/27/17 11:36 Dose: 500 mls Departure - Departure Disposition: [facility] Acute Clinical Impression: Hypoxia, Obesity
[2017-04-27] MEDS ORDERED: ONDANSETRON DISINTEGRATING 4 MG TAB PO PRN (14:27)
[2017-04-27] MEDS ORDERED: DICLOFENAC SODIUM 1% 100 GM GEL TP PRN (14:35)
[2017-04-27] MEDS ORDERED: BISACODYL 10 MG SUPP PR PRN (14:35)
[2017-04-27] MEDS ORDERED: HYDROCODONE/APAP 5/325 TAB PO PRN (14:35)
[2017-04-27] MEDS ORDERED: GUAIFENESIN/DM 10 ML UDCUP PO PRN (14:35)
--- NOTE | 2017-04-27 16:32 | GHP ---
[f rep st] HISTORY AND PHYSICAL DATE OF ADMISSION: 04/27/2017 CHIEF COMPLAINT: Shortness of breath. HISTORY OF PRESENT ILLNESS: This is a 52-year-old female who presents with worsening of chronic shor tness of breath. Patient is lupus patient on chronic steroids who has been seen monthly for the last 4 months with complaints of progressive shortness of breath. Patient is morbidly obese and has prev iously been diagnosed with pulmonary emboli, is on chronic anticoagulation. She reports in the last 2 weeks she has had a sensation of heaviness across her chest with worsening shortness of breath. She denies any subjective fevers or chills. She denies cough but does report t hat many of the inhabitants of the [place] where she lives have been sick with upper respiratory infections. Patient does not ambulate and is blind so she is wheeled around her snf in a w heelchair and otherwise has not effectively ambulated or moved her own legs in over 2 years per her r eport. Patient denies any sore throat, any rhinorrhea; denies any dysphagia, reports she has had normal appe tite and normal oral intake. Denies any nausea or vomiting. Denies diarrhea. Denies any dysuria, i s unable to tell me if she has had blood in her stools or hematuria. PAST MEDICAL HISTORY: 1. Lupus, steroid dependent. 2. Morbid obesity. 3. Blindness secondary to glaucoma. 4. History of pulmonary embolism. 5. Chronic hypoxic and hypercapnic respiratory failure thought secondary to obesity, hypoventilation syndrome. SOCIAL HISTORY: Patient lives in snf. Denies tobacco, denies alcohol, denies illicit drugs or marijuana. FAMILY HISTORY: Negative for lupus. ADVANCED DIRECTIVES: The patient wishes to be full cor, full tube. REVIEW OF SYSTEMS: A 10-point review of systems is negative with the exception of that reported in t he HPI. PHYSICAL EXAMINATION: VITAL SIGNS: Blood pressure is 131/86, heart rate 116, respiratory rate 20, s aturating 98% on 15 L non-rebreather. GENERAL: This is a morbidly obese female, lying flat in bed. HEENT: Notable for dry mucous membranes. Eye exam: Patient is visibly blind. CARDIAC: Heart sounds are distant. Patient is tachycardic but regular. PULMONARY: Very diminished breath sounds at bilate ral bases. On lateral auscultation, no wheezing, rale or rhonchi are auscultated. GASTROINTESTINAL: Positive bowel sounds. ABDOMEN: Obese and nontender to palpation. MUSCULOSKELETAL: Patient has t race symmetric bilateral lower extremity edema. SKIN: Patient has chronic old wounds and skin aguilar es of the lateral aspect of her right leg. No other rashes are appreciated. NEUROLOGIC: Patient is blind; otherwise, oriented and alert. PSYCHIATRIC: She is pleasant and cooperative on interview and examination. DATA: Sodium 142, creatinine 0.5, bicarb 34, troponin less than 0.012. BNP of 62. INR 0.92, white count 11.8, hematocrit 44.0, platelets of 181, D-dimer is 0.33. Chest x-ray, which I personally reviewed and interpreted, shows very minimal lung volumes, no clear i nfiltrates or edema appreciated. Seems stable from previous imaging. EKG, which I personally reviewed and interpreted, shows sinus rhythm with no acute ST-T changes. ASSESSMENT AND PLAN: This is a 52-year-old female presenting with shortness of breath. 1. Acute on chronic hypoxic and hypercapnic respiratory failure. Patient has a normal D-dimer on pr esentation, normal troponin after weeks of chest pain and a recent echocardiogram that shows a normal left ventricular ejection fraction. My suspicion for pulmonary embolism, acute AL or left heart johnny lure are all quite low. Most concerned that the patient has progressive obesity hypoventilation synd hiren. Because she has had acute worsening of her symptoms subjectively, will send a respiratory path ogen panel to rule out possible viral etiology for her symptoms that would not show infiltrates on ch est x-ray or specifically produce cough as a symptom. Will check an ABG and have written the patient for BiPAP at the minimum in the evenings but she may need it throughout the day. Patient will be ad mitted to the stepdown unit secondary to her oxygen requirements and will be seen by the pulmonologis t. Will not empirically write for steroids or beta agonist at this time as I do not think the patien t has airways disease. 2. Morbid obesity. Patient's BMI is 54 at presentation and appears to be increasing in her recent m easurements. Suspect much of this is related to chronic steroids. She is unable to talk with me abo ut goals related to titration of her steroid therapy long-term with her sash sticker. 3. Pulmonary embolism history. Patient's D-dimer 0.33. Will continue her outpatient anticoagulation . 4. Glaucoma. Patient does have blindness. Will continue her outpatient drops. 5. Lupus. Patient's creatinine is normal. Chest imaging is normal. Will continue her current dosin g of steroids but would discuss at length with the inpatient care team the benefit of working towards a taper ultimately. 6. Prophylaxis. The patient is on full-dose anticoagulation. DIET: Regular. DISPOSITION: I expect greater than 2 midnights as the patient is comorbidly quite ill requiring high levels of oxygen supplementation. Will need to complete our diagnostic workup and develop a plan th at will allow for proper oxygenation at disposition. I have discussed the case with Dr. Lopez from Pulmonary [facility]. He will consult in the [facility] for additional recommendations. /[id number]/MODL
--- NOTE | 2017-04-27 16:32 | GHP ---
[f rep st] HISTORY AND PHYSICAL DATE OF ADMISSION: 04/27/2017 CHIEF COMPLAINT: Shortness of breath. HISTORY OF PRESENT ILLNESS: This is a 52-year-old female who presents with worsening of chronic shor tness of breath. Patient is lupus patient on chronic steroids who has been seen monthly for the last 4 months with complaints of progressive shortness of breath. Patient is morbidly obese and has prev iously been diagnosed with pulmonary emboli, is on chronic anticoagulation. She reports in the last 2 weeks she has had a sensation of heaviness across her chest with worsening shortness of breath. She denies any subjective fevers or chills. She denies cough but does report t hat many of the inhabitants of the shelter where she lives have been sick with upper respiratory infections. Patient does not ambulate and is blind so she is wheeled around her shelter in a w heelchair and otherwise has not effectively ambulated or moved her own legs in over 2 years per her r eport. Patient denies any sore throat, any rhinorrhea; denies any dysphagia, reports she has had normal appe tite and normal oral intake. Denies any nausea or vomiting. Denies diarrhea. Denies any dysuria, i s unable to tell me if she has had blood in her stools or hematuria. PAST MEDICAL HISTORY: 1. Lupus, steroid dependent. 2. Morbid obesity. 3. Blindness secondary to glaucoma. 4. History of pulmonary embolism. 5. Chronic hypoxic and hypercapnic respiratory failure thought secondary to obesity, hypoventilation syndrome. SOCIAL HISTORY: Patient lives in shelter. Denies tobacco, denies alcohol, denies illicit drugs or marijuana. FAMILY HISTORY: Negative for lupus. ADVANCED DIRECTIVES: The patient wishes to be full cor, full tube. REVIEW OF SYSTEMS: A 10-point review of systems is negative with the exception of that reported in t he HPI. PHYSICAL EXAMINATION: VITAL SIGNS: Blood pressure is 131/86, heart rate 116, respiratory rate 20, s aturating 98% on 15 L non-rebreather. GENERAL: This is a morbidly obese female, lying flat in bed. HEENT: Notable for dry mucous membranes. Eye exam: Patient is visibly blind. CARDIAC: Heart sounds are distant. Patient is tachycardic but regular. PULMONARY: Very diminished breath sounds at bilate ral bases. On lateral auscultation, no wheezing, rale or rhonchi are auscultated. GASTROINTESTINAL: Positive bowel sounds. ABDOMEN: Obese and nontender to palpation. MUSCULOSKELETAL: Patient has t race symmetric bilateral lower extremity edema. SKIN: Patient has chronic old wounds and skin aguilar es of the lateral aspect of her right leg. No other rashes are appreciated. NEUROLOGIC: Patient is blind; otherwise, oriented and alert. PSYCHIATRIC: She is pleasant and cooperative on interview and examination. DATA: Sodium 142, creatinine 0.5, bicarb 34, troponin less than 0.012. BNP of 62. INR 0.92, white count 11.8, hematocrit 44.0, platelets of 181, D-dimer is 0.33. Chest x-ray, which I personally reviewed and interpreted, shows very minimal lung volumes, no clear i nfiltrates or edema appreciated. Seems stable from previous imaging. EKG, which I personally reviewed and interpreted, shows sinus rhythm with no acute ST-T changes. ASSESSMENT AND PLAN: This is a 52-year-old female presenting with shortness of breath. 1. Acute on chronic hypoxic and hypercapnic respiratory failure. Patient has a normal D-dimer on pr esentation, normal troponin after weeks of chest pain and a recent echocardiogram that shows a normal left ventricular ejection fraction. My suspicion for pulmonary embolism, acute OR or left heart johnny lure are all quite low. Most concerned that the patient has progressive obesity hypoventilation synd hiren. Because she has had acute worsening of her symptoms subjectively, will send a respiratory path ogen panel to rule out possible viral etiology for her symptoms that would not show infiltrates on ch est x-ray or specifically produce cough as a symptom. Will check an ABG and have written the patient for BiPAP at the minimum in the evenings but she may need it throughout the day. Patient will be ad mitted to the stepdown unit secondary to her oxygen requirements and will be seen by the pulmonologis t. Will not empirically write for steroids or beta agonist at this time as I do not think the patien t has airways disease. 2. Morbid obesity. Patient's BMI is 54 at presentation and appears to be increasing in her recent m easurements. Suspect much of this is related to chronic steroids. She is unable to talk with me abo ut goals related to titration of her steroid therapy long-term with her hold worker. 3. Pulmonary embolism history. Patient's D-dimer 0.33. Will continue her outpatient anticoagulation . 4. Glaucoma. Patient does have blindness. Will continue her outpatient drops. 5. Lupus. Patient's creatinine is normal. Chest imaging is normal. Will continue her current dosin g of steroids but would discuss at length with the inpatient care team the benefit of working towards a taper ultimately. 6. Prophylaxis. The patient is on full-dose anticoagulation. DIET: Regular. DISPOSITION: I expect greater than 2 midnights as the patient is comorbidly quite ill requiring high levels of oxygen supplementation. Will need to complete our diagnostic workup and develop a plan th at will allow for proper oxygenation at disposition. I have discussed the case with Dr. Lopez from Pulmonary Critical Care. He will consult in the [facility] unit for additional recommendations. /[id number]/MODL
--- NOTE | 2017-04-27 16:32 | GHP ---
[f rep st] HISTORY AND PHYSICAL DATE OF ADMISSION: 04/27/2017 CHIEF COMPLAINT: Shortness of breath. HISTORY OF PRESENT ILLNESS: This is a 52-year-old female who presents with worsening of chronic shor tness of breath. Patient is lupus patient on chronic steroids who has been seen monthly for the last 4 months with complaints of progressive shortness of breath. Patient is morbidly obese and has prev iously been diagnosed with pulmonary emboli, is on chronic anticoagulation. She reports in the last 2 weeks she has had a sensation of heaviness across her chest with worsening shortness of breath. She denies any subjective fevers or chills. She denies cough but does report t hat many of the inhabitants of the [facility] where she lives have been sick with upper respiratory infections. Patient does not ambulate and is blind so she is wheeled around her halfway in a w heelchair and otherwise has not effectively ambulated or moved her own legs in over 2 years per her r eport. Patient denies any sore throat, any rhinorrhea; denies any dysphagia, reports she has had normal appe tite and normal oral intake. Denies any nausea or vomiting. Denies diarrhea. Denies any dysuria, i s unable to tell me if she has had blood in her stools or hematuria. PAST MEDICAL HISTORY: 1. Lupus, steroid dependent. 2. Morbid obesity. 3. Blindness secondary to glaucoma. 4. History of pulmonary embolism. 5. Chronic hypoxic and hypercapnic respiratory failure thought secondary to obesity, hypoventilation syndrome. SOCIAL HISTORY: Patient lives in halfway. Denies tobacco, denies alcohol, denies illicit drugs or marijuana. FAMILY HISTORY: Negative for lupus. ADVANCED DIRECTIVES: The patient wishes to be full cor, full tube. REVIEW OF SYSTEMS: A 10-point review of systems is negative with the exception of that reported in t he HPI. PHYSICAL EXAMINATION: VITAL SIGNS: Blood pressure is 131/86, heart rate 116, respiratory rate 20, s aturating 98% on 15 L non-rebreather. GENERAL: This is a morbidly obese female, lying flat in bed. HEENT: Notable for dry mucous membranes. Eye exam: Patient is visibly blind. CARDIAC: Heart sounds are distant. Patient is tachycardic but regular. PULMONARY: Very diminished breath sounds at bilate ral bases. On lateral auscultation, no wheezing, rale or rhonchi are auscultated. GASTROINTESTINAL: Positive bowel sounds. ABDOMEN: Obese and nontender to palpation. MUSCULOSKELETAL: Patient has t race symmetric bilateral lower extremity edema. SKIN: Patient has chronic old wounds and skin aguilar es of the lateral aspect of her right leg. No other rashes are appreciated. NEUROLOGIC: Patient is blind; otherwise, oriented and alert. PSYCHIATRIC: She is pleasant and cooperative on interview and examination. DATA: Sodium 142, creatinine 0.5, bicarb 34, troponin less than 0.012. BNP of 62. INR 0.92, white count 11.8, hematocrit 44.0, platelets of 181, D-dimer is 0.33. Chest x-ray, which I personally reviewed and interpreted, shows very minimal lung volumes, no clear i nfiltrates or edema appreciated. Seems stable from previous imaging. EKG, which I personally reviewed and interpreted, shows sinus rhythm with no acute ST-T changes. ASSESSMENT AND PLAN: This is a 52-year-old female presenting with shortness of breath. 1. Acute on chronic hypoxic and hypercapnic respiratory failure. Patient has a normal D-dimer on pr esentation, normal troponin after weeks of chest pain and a recent echocardiogram that shows a normal left ventricular ejection fraction. My suspicion for pulmonary embolism, acute CT or left heart johnny lure are all quite low. Most concerned that the patient has progressive obesity hypoventilation synd hiren. Because she has had acute worsening of her symptoms subjectively, will send a respiratory path ogen panel to rule out possible viral etiology for her symptoms that would not show infiltrates on ch est x-ray or specifically produce cough as a symptom. Will check an ABG and have written the patient for BiPAP at the minimum in the evenings but she may need it throughout the day. Patient will be ad mitted to the stepdown unit secondary to her oxygen requirements and will be seen by the pulmonologis t. Will not empirically write for steroids or beta agonist at this time as I do not think the patien t has airways disease. 2. Morbid obesity. Patient's BMI is 54 at presentation and appears to be increasing in her recent m easurements. Suspect much of this is related to chronic steroids. She is unable to talk with me abo ut goals related to titration of her steroid therapy long-term with her investment specialist. 3. Pulmonary embolism history. Patient's D-dimer 0.33. Will continue her outpatient anticoagulation . 4. Glaucoma. Patient does have blindness. Will continue her outpatient drops. 5. Lupus. Patient's creatinine is normal. Chest imaging is normal. Will continue her current dosin g of steroids but would discuss at length with the inpatient care team the benefit of working towards a taper ultimately. 6. Prophylaxis. The patient is on full-dose anticoagulation. DIET: Regular. DISPOSITION: I expect greater than 2 midnights as the patient is comorbidly quite ill requiring high levels of oxygen supplementation. Will need to complete our diagnostic workup and develop a plan th at will allow for proper oxygenation at disposition. I have discussed the case with Dr. Lopez from Pulmonary Critical Care. He will consult in the [facility] unit for additional recommendations. /[id number]/MODL
--- NOTE | 2017-04-27 18:29 | PDMN ---
Medical Necessity Medical necessity: C/M review: est. > 2 MN LOS for eval and TX of acute on chronic hypoxic and hypercapnic respiratory failure, shortness of breath requiring planned Pulmonary consult, ongoing pulse oximetry, high supplemental O2 requirement, BIPAP at HS, acute inpt PT/OT, comorbid morbid obesity, lupus, blindness secondary to glaucoma, hx PE on chronic anticoagulation per H/P.
[2017-04-27] MEDS: ALPRAZolam 0.5 MG TAB PO PRN (19:33)
[2017-04-27] MEDS ORDERED: ALTEPLASE 2 MG VIAL IVP PRN (19:57)
[2017-04-27] MEDS: DIVALPROEX ER 250 MG TAB PO SCH (20:55)
[2017-04-27] MEDS: traZODone 50 MG TAB PO SCH (20:55)
[2017-04-27] MEDS: GABAPENTIN 300 MG CAP PO SCH (20:55)
[2017-04-27] MEDS: RIVAROXABAN 20 MG TAB PO SCH (20:55)
[2017-04-27] MEDS: NEOMY SULF/BACITRAC ZN/POLY 30 GM OINTTUBE TP SCH (20:55)
[2017-04-27] MEDS: DEXAMETHASONE 4 MG TAB PO SCH (20:55)
[2017-04-27] MEDS: BRIMONIDINE 0.2% 5 ML OPHT.BTL EACHEYE SCH (20:56)
[2017-04-27] MEDS: LATANOPROST 0.005% 2.5 ML OPHT DROPS EACHEYE SCH (20:56)
[2017-04-27] MEDS: TIMOLOL 0.5% 15 ML OPHT.BTL EACHEYE SCH (20:57)
[2017-04-27] MEDS: DORZOLAMIDE 2% OPTH DROPS OP SCH (20:57)
[2017-04-28 06:21] LABS: PLATELET COUNT 158 10^3/uL (150-400)
--- NOTE | 2017-04-28 08:45 | HOSPPROG ---
Hospitalist Progress Note Assessment/Plan: DIAGNOSES: -acute on chronic hypoxemic resp failure, requiring bipap therapy -acute on chronic R side CHF -? possible hemidiaphragm paralysis -hx of PE on xarelto -abdominal pain x 2 weeks, ? cause -obesity, suspect obesity hypoventilation syndrome PLANS: continue resp support diaphragm study Will begin diuresis with IV Lasix continue xarelto attempt mobility as able Reviewed in detail with Dr Lopez today Seen on multidisc rounds SUBJECTIVE: remains sob, very weak - required BiPap thru night for ongoing hypoxemia on other resp devices mild nausea has 2 weeks of abdominal pain, diffuse ache in the L abdomen, but says has been eating and stooling ok OBJECTIVE: vitals: tachycardic, tachypneic, normal BPs and temps card monitor: sinus tachycardia exam: alert oriented skin no cyanosis jvd not visible but obese enough to make exam unreliable Respirations remain labored Lungs with extremely diminished breath sounds no wheeze Heart regular Abdomen extremely obese, soft nontender nondistended Remarkable edema distally in all 4 extremities and proximally in the legs Chest x-ray images, my interpretation of yesterday's x-ray: Remarkable elevation of the right hemidiaphragm, enlargement of the right ventricle outflow tract of the heart consistent with right heart failure, no infiltrates Objective: Vital Signs Temp Pulse Resp BP Pulse Ox 36.3 C 102 H 18 139/85 H 95 04/28/17 07:53 04/28/17 07:53 04/28/17 07:53 04/28/17 07:53 04/28/17 07:53 Microbiology 04/27/17 23:50 Respiratory Panel (PCR) - Final Nasal, Sinus - [place] Viral Transport No Organism Detected Laboratory Results 04/28/17 05:45 04/28/17 05:45 04/27/17 04/28/17 04/29/17 06:59 06:59 06:59 Intake Total 750 Balance 750 PT 12.3 SEC (12.0-15.0) 04/27/17 11:05 INR 0.92 (0.83-1.16) 04/27/17 11:05 - Time Spent With Patient Time Spent with Patient: greater than 35 minutes Time Spent with Patient: Greater than 35 minutes spent on this patients care, greater than 50% of time spent counseling, educating, and coordinating care regarding the above mentioned plan. ICD10 Worksheet Patient Problems: Problems Problem Status Onset Hypoxia Acute Obesity Acute Headache Acute Pneumonia Acute
[2017-04-28] MEDS: BRIMONIDINE 0.2% 5 ML OPHT.BTL EACHEYE SCH ×3 (09:18→20:27)
[2017-04-28] MEDS: DIVALPROEX ER 250 MG TAB PO SCH ×2 (09:19→20:25)
[2017-04-28] MEDS: SERTRALINE HCL 100 MG TAB PO SCH (09:20)
[2017-04-28] MEDS: GABAPENTIN 300 MG CAP PO SCH ×3 (09:20→20:25)
[2017-04-28] MEDS: SENNOSIDES/DOCUSATE SODIUM TAB PO SCH (09:21)
[2017-04-28] MEDS: MULTIVITAMINS 1 EACH TAB PO SCH (09:21)
[2017-04-28] MEDS: PANTOPRAZOLE SODIUM 40 MG TAB PO SCH (09:21)
[2017-04-28] MEDS: TIMOLOL 0.5% 15 ML OPHT.BTL EACHEYE SCH ×2 (09:24→20:26)
[2017-04-28] MEDS: DORZOLAMIDE 2% OPTH DROPS OP SCH ×2 (09:27→20:26)
[2017-04-28] MEDS: NEOMY SULF/BACITRAC ZN/POLY 30 GM OINTTUBE TP SCH ×2 (09:33→20:27)
[2017-04-28] MEDS: FUROSEMIDE 20 MG/2 ML VIAL IVP SCH ×2 (09:40→15:14)
[2017-04-28] MEDS: DEXAMETHASONE 4 MG TAB PO SCH ×2 (09:42→20:25)
[2017-04-28] MEDS: ALPRAZolam 0.5 MG TAB PO PRN ×2 (09:42→21:43)
[2017-04-28] MEDS ORDERED: FLU VACC QS 2017-18 (3YR+)/PF 0.5 ML SYR (FLUARIX QUAD) IM ONE (10:36)
[2017-04-28] MEDS ORDERED: PNEUMOCOCCAL 0.5ML VACCINE VIAL IM ONE (10:37)
--- NOTE | 2017-04-28 12:52 | GCON ---
[f rep st] CONSULTATION PULMONARY CONSULTATION DATE OF CONSULTATION: 04/28/2017 REASON FOR CONSULTATION: Acute on chronic respiratory failure in a patient with morbid obesity and m ultiple medical problems. HISTORY: The patient is a 52-year-old, who presented to the emergency room with increasing shortness of breath. She has a history of underlying morbid obesity, chronic respiratory failure on oxygen at 4 L, chronic steroid therapy secondary to lupus, blindness, and a history of pulmonary embolic disea se. She is felt to be Pickwickian. There were no obvious precipitating factors on admission. She was not complaining of cough or mucus. She has had no fevers, chills, or sweats. She is on anticoagulation. She has not walked in 2 year s. She spends most of her time in bed. At the longterm, she will be occasionally lifted into a chair or wheelchair. By report, this does not happen very frequently. She has been in nursing homes for a number years now, but is not specific on the exact time. She does have family, but has little contact with them. She was admitted to the step-down unit. She was placed on BiPAP overnight, which she seemed to elayne ate well. She is currently off this and down close to her usual oxygen requirements. PAST MEDICAL HISTORY: As outlined above, including obesity and chronic respiratory failure secondary to Pickwickian syndrome, history of pulmonary embolic disease, on chronic anticoagulation, blindness due to glaucoma, lupus, for which she takes chronic steroids, severe weakness and largely bedbound s keith. DRUG ALLERGIES: Codeine, sulfa preparations, intravenous contrast. 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 She is a never smoker. Alcohol is denied. She is up to date on vaccinations. FAMILY HISTORY: Noncontributory. REVIEW OF SYSTEMS: Negative, except as mentioned in the HPI. MEDICATIONS: On admission she was on multiple medications, as listed in her chart. PHYSICAL EXAMINATION: GENERAL: Reveals a markedly obese woman, who is lying in bed. She is somnole nt, but arouses and is responsive. By report, her mental status has somewhat waxed and waned. VITAL SIGNS: Blood pressure is 140/85, heart rate 100, with sinus tachycardia on the monitor. Respirator y rate is approximately 20. She is on an OxyMask. She is afebrile. Saturations have been between 9 0 and 95. HEENT: Remarkable for the mask being in place, somewhat dry, mucous membranes. She has a large neck. There is no obvious thyromegaly or lymphadenopathy. Jugular venous distention could no t be estimated. CHEST: Clear anteriorly. Breath sounds are markedly diminished secondary to her aleksandr dy habitus, and inability to take a deep breath secondary to her obesity and muscle weakness. HEART: Heart tones are distant. The rhythm appears regular. Gallops and murmurs cannot be appreciated, a nd P2 is difficult to hear. ABDOMEN: Markedly obese, soft and nontender. Bowel sounds are present, but distant. EXTREMITIES: Remarkable for 2 to 3+ edema/anasarca of the legs. SKIN: Unremarkable for significant rash or lesions, areas of breakdown could not be currently assessed. There is no Fol ey catheter in place. PICC line is present in the right upper extremity. DATABASE: Chest x-ray: This shows marked hypoventilatory change, large cardiac silhouette. There a re no obvious focal infiltrates. Cardiac echo: This was done on her last admission in December. There was no evidence of right ventricul ar dysfunction, however, pulmonary artery pressures were not directly mentioned. There was evidence of diastolic dysfunction. LABORATORY: Arterial blood gas is pending. White blood cell count is 10,000, hematocrit 40, platele ts 158,000. PT and PTT were normal on admission, as was a D-dimer. Basic metabolic panel was within normal limits, with the exception of an elevated CO2 at 35. Glucose was 133, calcium 8.4. Troponin and BNP were both normal on admission. ASSESSMENT: 1. Acute on chronic respiratory failure. This is secondary to obesity/hypoventilation, associated w ith Pickwickian syndrome. Blood gas is pending, but I anticipate pCO2 to be chronically elevated. S he comes in with increased shortness of breath, and initially with increased hypoxemia, however, her oxygen requirements are now down to their baseline. There is no evidence of pneumonia, bronchitis, o r other acute factors resulting in respiratory decompensation. Cardiac status appears stable as well . She was treated with BiPAP overnight and tolerated this. She would be at high risk for a componen t of sleep apnea. I do not know if this has been investigated in the past, and probably could not be investigated now secondary to her multiple medical problems. However, BiPAP at her longterm use d at night and when sleeping during the day, would likely be of benefit for her. She is on bronchodi lator therapies. These will be continued. 2. History of pulmonary embolic disease. There is no evidence of recurrent pulmonary embolism. She is chronically full-dose anticoagulated. 3. History of blindness secondary to glaucoma. 4. Failure to thrive, chronic bedrest, nonambulatory. 5. History of lupus and chronic steroid therapy with 4 mg of Decadron twice a day. This is likely c ontributing to muscle weakness, both of the extremities and of respiratory musculature. It also has significantly contributed to her ongoing obesity. 6. History of depression. PLAN AND RECOMMENDATIONS: The patient will be kept in the intensive care unit as a step-down patient . I will try to encourage use of BiPAP at night with oxygen and also during the day when sleeping. Lasix will be continued for fluid retention. Her usual outpatient medications will be continued. A blood gas will be drawn, laboratory, and followup chest x-ray as indicated will be obtained. She is listed as a full cor. If she were to progress to respiratory failure, it would be unlikely that she would be able to be extubated. We can discuss this with her going forward. A palliative care consul tation may be of benefit at some point. Further plans and recommendations will be made based on her progress over the next 12-24 hours. /[id number]/MODL
--- NOTE | 2017-04-28 14:40 | ASMTCMCOM ---
CM Note CM Note Notes: 04/28/2017 Case Managment Note Reviewed chart, discussed w/RN. Met w/pt. Pt lives at [facility]. Confirmed with Naomi at [facility] and spoke w/RN in charge of cares at [facility]. Pt is not under Palliative Care at [facility]. [facility] staff plans for pt to return when medically stable. Pt reports a son, Boy, lives in [place]. Pt did not have a contact phone number. RN at [facility] reports that UNIQUE, also a son, is the MDPOA. Case Management d/c poc: Return to [facility] when medically stable with follow up as directed. Case Management to follow. Date Signed: 04/28/2017 02:40 PM Electronically Signed By:Rena Rojas RN
--- NOTE | 2017-04-28 14:40 | ASMTCMCOM ---
CM Note CM Note Notes: 04/28/2017 Case Managment Note Reviewed chart, discussed w/RN. Met w/pt. Pt lives at [facility]. Confirmed with Naomi at [facility] and spoke w/RN in charge of cares at [facility]. Pt is not under Palliative Care at [facility]. [facility] staff plans for pt to return when medically stable. Pt reports a son, Boy, lives in [place]. Pt did not have a contact phone number. RN at [facility] reports that UNIQUE, also a son, is the MDPOA. Case Management d/c poc: Return to [facility] when medically stable with follow up as directed. Case Management to follow. Date Signed: 04/28/2017 02:40 PM Electronically Signed By:Rena Rojas RN
[2017-04-28] MEDS: RIVAROXABAN 20 MG TAB PO SCH (20:25)
[2017-04-28] MEDS: traZODone 50 MG TAB PO SCH (20:25)
[2017-04-28] MEDS: VANCOMYCIN 125 MG/2.5 ML UDL PO SCH (20:25)
[2017-04-28] MEDS: LATANOPROST 0.005% 2.5 ML OPHT DROPS EACHEYE SCH (20:27)
[2017-04-28] MEDS: ONDANSETRON 4 MG/2 ML VIAL IVP PRN (21:50)
[2017-04-29] MEDS: VANCOMYCIN 125 MG/2.5 ML UDL PO SCH ×4 (06:18→20:21)
[2017-04-29] MEDS: GABAPENTIN 300 MG CAP PO SCH ×3 (08:56→20:21)
[2017-04-29] MEDS: DIVALPROEX ER 250 MG TAB PO SCH ×2 (08:56→20:21)
[2017-04-29] MEDS: SERTRALINE HCL 100 MG TAB PO SCH (08:56)
[2017-04-29] MEDS: DEXAMETHASONE 4 MG TAB PO SCH ×2 (08:57→20:21)
[2017-04-29] MEDS: MULTIVITAMINS 1 EACH TAB PO SCH (08:57)
[2017-04-29] MEDS: PANTOPRAZOLE SODIUM 40 MG TAB PO SCH (08:57)
[2017-04-29] MEDS: ALPRAZolam 0.5 MG TAB PO PRN ×2 (08:58→22:10)
[2017-04-29] MEDS: FUROSEMIDE 20 MG/2 ML VIAL IVP SCH ×2 (08:59→15:38)
[2017-04-29] MEDS: DORZOLAMIDE 2% OPTH DROPS OP SCH ×2 (09:02→20:20)
[2017-04-29] MEDS: SENNOSIDES/DOCUSATE SODIUM TAB PO SCH (09:02)
[2017-04-29] MEDS: BRIMONIDINE 0.2% 5 ML OPHT.BTL EACHEYE SCH ×3 (09:02→20:20)
[2017-04-29] MEDS: NEOMY SULF/BACITRAC ZN/POLY 30 GM OINTTUBE TP SCH ×2 (09:03→20:21)
[2017-04-29] MEDS: TIMOLOL 0.5% 15 ML OPHT.BTL EACHEYE SCH ×2 (09:03→20:19)
--- NOTE | 2017-04-29 09:40 | HOSPPROG ---
Hospitalist Progress Note Assessment/Plan: DIAGNOSES: -acute on chronic hypoxemic resp failure, requiring bipap therapy -acute on chronic R side CHF -? possible hemidiaphragm paralysis -hx of PE on xarelto -acute C diff colitis, this may be cause of her abdominal pain -obesity, suspect obesity hypoventilation syndrome PLANS: continue resp support Continue diuresis with IV Lasix continue xarelto Continue p.o. vancomycin attempt mobility as able Reviewed in detail with Dr Lopez today Seen on multidisc rounds SUBJECTIVE: remains sob, very weak is hypoxemic without BiPAP but is not tolerating the BiPAP for more than about 1-2 hours at a time Still having loose stools but says few in number, still having some abdominal pain OBJECTIVE: vitals: Heart rate better but still mildly tachycardic; tachypneic, normal BPs and temps card monitor: sinus tachycardia exam: alert oriented skin no cyanosis jvd not visible but obese enough to make exam unreliable Respirations remain labored Lungs with extremely diminished breath sounds no wheeze Heart regular Abdomen extremely obese, soft somewhat tender nondistended Slight decrease in edema of the limbs Objective: Vital Signs Temp Pulse Resp BP Pulse Ox 36.7 C 100 20 136/83 H 90 L 04/29/17 08:00 04/29/17 08:00 04/29/17 08:00 04/29/17 08:00 04/29/17 08:00 Microbiology 04/27/17 23:50 Respiratory Panel (PCR) - Final Nasal, Sinus - [place] Viral Transport No Organism Detected Laboratory Results 04/28/17 05:45 04/28/17 05:45 04/28/17 04/29/17 04/30/17 06:59 06:59 06:59 Intake Total 750 980 Balance 750 980 PT 12.3 SEC (12.0-15.0) 04/27/17 11:05 INR 0.92 (0.83-1.16) 04/27/17 11:05 ICD10 Worksheet Patient Problems: Problems Problem Status Onset Hypoxia Acute Obesity Acute Headache Acute Pneumonia Acute
--- NOTE | 2017-04-29 12:57 | PDINTPN ---
Agricultural Research Technician Progress Note Assessment/Plan: Assessment: Obesity hypoventilation. Has severe long-standing disease. No acute issues like pneumonia or bronchitis or increased congestive heart failure identified. PCO2 48, probably her baseline as pH is 7.44. Doing okay. The only real therapy we can offer her is BiPAP at this time. However she is somewhat resistant to wearing this secondary to anxiety and other issues. Hypoxemia: Stable. At her baseline. Probably best to keep saturations in the upper 80s. Edema, fluid retention. On diuresis. Has had a relatively normal looking echo in the past, but right ventricular pressure is not estimated. Diastolic dysfunction present. I suspect right ventricular dysfunction is responsible for her edema and fluid retention. Will continue Lasix. C diff positive. On oral vancomycin. History of DVT/pulmonary embolism. On full-dose anticoagulation with Xarelto. Will continue. Failure to thrive: Bed-bound for at least 2 years. Does not ambulate. Blindness. Advance directives. The patient is listed as a full cor. She would not survive a cardiac arrest if needed cardiac resuscitation. If intubated she would be unlikely to come off the ventilator. We will need to address this further. Palliative care consultation will be of benefit. Plan: Continue present care, including diuresis, oxygen supplementation keeping saturations in the high 80s, encourage BiPAP at night and as needed during the day. Palliative care consultation requested. Continue Xarelto. Continue oral vancomycin for C diff. Follow laboratory. 30 min CC time spent directly with patient. Discussed with RT, Hospitalist, Nursing and the M-D ICU team. Subjective: Somnolent, arousable, tolerating BiPAP Objective: Vital Signs Temp Pulse Resp BP Pulse Ox 36.7 C 108 H 21 H 106/67 86 L 04/29/17 08:00 04/29/17 12:00 04/29/17 12:00 04/29/17 12:00 04/29/17 12:00 Microbiology 04/27/17 23:50 Respiratory Panel (PCR) - Final Nasal, Sinus - [place] Viral Transport No Organism Detected Laboratory Results 04/28/17 05:45 04/28/17 05:45 04/28/17 04/29/17 04/30/17 05:59 05:59 05:59 Intake Total 750 980 Balance 750 980 PT 12.3 SEC (12.0-15.0) 04/27/17 11:05 INR 0.92 (0.83-1.16) 04/27/17 11:05 Laboratory Tests 04/28/17 04/28/17 12:40 15:55 pCO2 48 H pO2 63 L ABG pH 7.44 O2 Concentration % 91 C. difficile Tox (PCR) POSITIVE H Respiratory panel negative. Physical Exam - Physical Exam General Appearance: obese, other (Somnolent, arouses) EENT: other (On BiPAP) Neck: No normal inspection (Large short neck. JVD cannot be evaluated.) Respiratory: lungs clear (Anteriorly), decreased breath sounds (At the bases. Excursions and airflow markedly diminished), No rales, No rhonchi, No wheezing Cardiac/Chest: tachycardia (Sinus, low 100s) Abdomen: non-tender, soft, other (Markedly obese), No normal bowel sounds ( Decreased, present, distant) Pelvic Exam: other (No Manzano catheter, incontinence) Skin: normal color, warm/dry Extremities: pedal edema, swelling (2 to 3+ lower extremity edema) Neuro/Psych: No no motor/sensory deficits (Moves all extremities but very weak, especially lower extremities.), No cognition abnormalities ICD10 Worksheet Patient Problems: Problems Problem Status Onset Clostridium difficile infection Acute ~04/28/17 Headache Acute Hypoxia Acute Obesity Acute Palliative care encounter Acute Pneumonia Acute
[2017-04-29] MEDS: LATANOPROST 0.005% 2.5 ML OPHT DROPS EACHEYE SCH (20:20)
[2017-04-29] MEDS: traZODone 50 MG TAB PO SCH (20:21)
[2017-04-29] MEDS: RIVAROXABAN 20 MG TAB PO SCH (20:21)
[2017-04-30] MEDS: ALPRAZolam 0.5 MG TAB PO PRN ×3 (05:59→20:04)
[2017-04-30] MEDS: VANCOMYCIN 125 MG/2.5 ML UDL PO SCH ×4 (05:59→20:04)
[2017-04-30] MEDS: SERTRALINE HCL 100 MG TAB PO SCH (07:48)
[2017-04-30] MEDS: MULTIVITAMINS 1 EACH TAB PO SCH (07:48)
[2017-04-30] MEDS: DEXAMETHASONE 4 MG TAB PO SCH ×2 (07:48→20:04)
[2017-04-30] MEDS: DIVALPROEX ER 250 MG TAB PO SCH ×2 (07:48→20:04)
[2017-04-30] MEDS: PANTOPRAZOLE SODIUM 40 MG TAB PO SCH (07:48)
[2017-04-30] MEDS: ACETAMINOPHEN 325 MG TAB PO PRN (07:48)
[2017-04-30] MEDS: FUROSEMIDE 20 MG/2 ML VIAL IVP SCH ×2 (07:48→16:52)
[2017-04-30] MEDS: GABAPENTIN 300 MG CAP PO SCH ×3 (07:48→20:04)
[2017-04-30] MEDS: TIMOLOL 0.5% 15 ML OPHT.BTL EACHEYE SCH ×2 (07:49→20:52)
[2017-04-30] MEDS: SENNOSIDES/DOCUSATE SODIUM TAB PO SCH (07:49)
[2017-04-30] MEDS: DORZOLAMIDE 2% OPTH DROPS OP SCH ×2 (07:50→20:30)
--- NOTE | 2017-04-30 09:57 | PDINTPN ---
Cyber Workforce Developer And Manager Progress Note Assessment/Plan: Assessment/Plan: * Acute respiratory failure: Extubated. Did well on BiPAP last night. States she is breathless this morning however. -continue BiPAP * Hypotension: Resolved. * Possible sepsis-resolved * Atrial fibrillation with rapid ventricular response. Resolved post cardioversion. On amiodarone. On heparin drip. Plans per Cardiology. Appreciate care from Dr. Berman. * Acute renal failure. BUN and creatinine improved. Good urine output. Renal following. * Elevated liver function tests: Likely secondary to shock liver. Follow. * Anemia: Hematocrit approximately 29, down from 38. Likely dilutional. Follow. * GI prophylaxis: On famotidine. * Right leg wound-followed by wound care Subjective: Resting comfortably in bed. Feels somewhat dyspneic. Denies any pain. Objective: Vital Signs Temp Pulse Resp BP Pulse Ox 36.7 C 89 16 124/79 H 92 04/30/17 00:00 04/30/17 04:00 04/30/17 04:00 04/30/17 04:00 04/30/17 04:00 Laboratory Results 04/28/17 05:45 04/30/17 05:30 04/29/17 04/30/17 05/01/17 05:59 05:59 05:59 Intake Total 980 1584 Balance 980 1584 PT 12.3 SEC (12.0-15.0) 04/27/17 11:05 INR 0.92 (0.83-1.16) 04/27/17 11:05 Physical Exam - Physical Exam General Appearance: alert, mild distress EENT: PERRL/EOMI, normal ENT inspection Neck: non-tender, full range of motion Respiratory: decreased breath sounds, No rhonchi, No wheezing Abdomen: normal bowel sounds, non-tender, soft Pelvic Exam: deferred Rectal: deferred Extremities: non-tender Neuro/Psych: alert ICD10 Worksheet Patient Problems: Problems Problem Status Onset Hypoxia Acute Obesity Acute Headache Acute Pneumonia Acute
--- NOTE | 2017-04-30 11:27 | HOSPPROG ---
Hospitalist Progress Note Assessment/Plan: DIAGNOSES: -acute on chronic hypoxemic/hypercarbic resp failure, pt unable to tolerate bipap -acute on chronic R side CHF, being diresed -? possible hemidiaphragm paralysis -hx of PE, remains on xarelto -acute C diff colitis, is likely the cause of her abdominal pain -chronic ulcer on her R pretibial area now with some scabbing, needs some dressing changes (this is not a pressure lesion; anterior leg, an old post op lesion) -obesity, suspect obesity hypoventilation syndrome PLANS: continue care in SDU continue resp support Continue diuresis with IV Lasix continue xarelto Continue p.o. vancomycin wound care consult attempt mobility as able Reviewed in detail with Dr Bhatia today Seen on multidisc rounds SUBJECTIVE: remains sob, very weak is intolerant of bipap, so using mask o2 but with ongoing hypoxemia diarrhea and abd pain improving OBJECTIVE: vitals: Heart rate better but still mildly tachycardic; tachypneic, normal BPs and temps card monitor: sinus tachycardia exam: alert oriented skin no cyanosis jvd not visible but obese enough to make exam unreliable Respirations remain labored Lungs with extremely diminished breath sounds no wheeze Heart regular Abdomen extremely obese, soft somewhat tender nondistended Slight decrease in edema of the limbs CXR today, my reading: there remains marked hypoventilation with some atelectasis, no new infiltrates or edema Lab data: CO2 up to 43 on chem panel Objective: Vital Signs Temp Pulse Resp BP Pulse Ox 36.7 C 89 16 124/79 H 92 04/30/17 00:00 04/30/17 04:00 04/30/17 04:00 04/30/17 04:00 04/30/17 04:00 Laboratory Results 04/28/17 05:45 04/30/17 05:30 04/29/17 04/30/17 05/01/17 06:59 06:59 06:59 Intake Total 980 1584 Balance 980 1584 PT 12.3 SEC (12.0-15.0) 04/27/17 11:05 INR 0.92 (0.83-1.16) 04/27/17 11:05 - Time Spent With Patient Time Spent with Patient: greater than 35 minutes Time Spent with Patient: Greater than 35 minutes spent on this patients care, greater than 50% of time spent counseling, educating, and coordinating care regarding the above mentioned plan. ICD10 Worksheet Patient Problems: Problems Problem Status Onset Clostridium difficile infection Acute ~04/28/17 Hypoxia Acute Obesity Acute Headache Acute Pneumonia Acute
--- NOTE | 2017-04-30 12:33 | WOCRNPDOC ---
WOCRN Advanced Assessment Note - Skin Integrity Problem, Advanced Assess Right Lower Lateral Leg Dressing Type: Open to Air Exudate Amount: None Wound Bed Constitution: Granulation Tissue, Smooth Tissue Wound Edges: Epithelizing Site Measurement - Head-to-Toe Length X Width X Depth (cm): 12x7x0.2 Skin Integrity Problem Comment: Shallow healing wound in final phases of wound healing. Epithelial cells begining to migrate across wound bed. Some of which are slightly necrotic/balled up from vigorous clenaning. Area was gently cleaned with ns and gauze. Treat with silvasorb and large Allevyn life. Woudn care will sign off.
[2017-04-30] MEDS: BRIMONIDINE 0.2% 5 ML OPHT.BTL EACHEYE SCH ×3 (13:04→20:03)
[2017-04-30] MEDS: NEOMY SULF/BACITRAC ZN/POLY 30 GM OINTTUBE TP SCH ×2 (13:05→19:56)
[2017-04-30] MEDS: RIVAROXABAN 20 MG TAB PO SCH (20:04)
[2017-04-30] MEDS: traZODone 50 MG TAB PO SCH (20:04)
[2017-04-30] MEDS: LATANOPROST 0.005% 2.5 ML OPHT DROPS EACHEYE SCH (20:18)
[2017-05-01] MEDS: ALPRAZolam 0.5 MG TAB PO PRN ×3 (06:16→20:00)
[2017-05-01] MEDS: VANCOMYCIN 125 MG/2.5 ML UDL PO SCH ×4 (06:16→19:59)
[2017-05-01] MEDS: DEXAMETHASONE 4 MG TAB PO SCH ×2 (08:39→20:00)
[2017-05-01] MEDS: GABAPENTIN 300 MG CAP PO SCH ×3 (08:39→20:00)
[2017-05-01] MEDS: BRIMONIDINE 0.2% 5 ML OPHT.BTL EACHEYE SCH ×3 (08:39→20:04)
[2017-05-01] MEDS: FUROSEMIDE 20 MG/2 ML VIAL IVP SCH ×2 (08:40→17:14)
[2017-05-01] MEDS: DORZOLAMIDE 2% OPTH DROPS OP SCH ×2 (08:40→20:04)
[2017-05-01] MEDS: MULTIVITAMINS 1 EACH TAB PO SCH (08:40)
[2017-05-01] MEDS: DIVALPROEX ER 250 MG TAB PO SCH ×2 (08:40→20:00)
[2017-05-01] MEDS: NEOMY SULF/BACITRAC ZN/POLY 30 GM OINTTUBE TP SCH ×2 (08:41→20:04)
[2017-05-01] MEDS: PANTOPRAZOLE SODIUM 40 MG TAB PO SCH (08:41)
[2017-05-01] MEDS: SERTRALINE HCL 100 MG TAB PO SCH (08:41)
[2017-05-01] MEDS: SENNOSIDES/DOCUSATE SODIUM TAB PO SCH (08:41)
[2017-05-01] MEDS: TIMOLOL 0.5% 15 ML OPHT.BTL EACHEYE SCH ×2 (08:41→20:04)
--- NOTE | 2017-05-01 09:38 | PDINTPN ---
Commercial Print Salesman Progress Note Assessment/Plan: Assessment/Plan: * Acute respiratory failure: Extubated. Did well on BiPAP last night. States she is breathless this morning however. -continue BiPAP at night * Hypotension: Resolved. * Possible sepsis-resolved * Atrial fibrillation with rapid ventricular response. Resolved post cardioversion. On amiodarone. On heparin drip. Plans per Cardiology. * Acute renal failure. BUN and creatinine improved. Good urine output. Renal following. * Elevated liver function tests: Likely secondary to shock liver. Follow. * Anemia: Stable * GI prophylaxis: On famotidine. * Right leg wound-followed by wound care * Disposition-palliative Care to see today Subjective: Resting comfortably. Denies breathlessness. Hungry. Objective: Vital Signs Temp Pulse Resp BP Pulse Ox 36.7 C 91 18 120/73 94 05/01/17 07:25 05/01/17 07:25 05/01/17 07:25 05/01/17 07:25 05/01/17 07:25 Laboratory Results 04/28/17 05:45 04/30/17 05:30 04/30/17 05/01/17 05/02/17 05:59 05:59 05:59 Intake Total 1584 400 Output Total 1 Balance 1584 399 PT 12.3 SEC (12.0-15.0) 04/27/17 11:05 INR 0.92 (0.83-1.16) 04/27/17 11:05 Chest [id number] by myself. Market elevation of right hemidiaphragm. Very small lung volumes. Cardiomegaly is present. Physical Exam - Physical Exam General Appearance: alert, no apparent distress, obese EENT: PERRL/EOMI, normal ENT inspection Neck: non-tender, full range of motion Respiratory: decreased breath sounds, No crackles, No wheezing Cardiac/Chest: normal peripheral pulses, regular rate, rhythm, systolic murmur Abdomen: normal bowel sounds, non-tender, soft Pelvic Exam: deferred Rectal: deferred Skin: normal color, warm/dry Neuro/Psych: alert, normal mood/affect, oriented x 3 ICD10 Worksheet Patient Problems: Problems Problem Status Onset Clostridium difficile infection Acute ~04/28/17 Hypoxia Acute Obesity Acute Headache Acute Pneumonia Acute
--- NOTE | 2017-05-01 13:48 | PDPCPN ---
Palliative Care Progress Note Assessment/Plan: Referring provider: Dr Bhatia Reason for consult: Complex medical decision making Symptom control HPI: Sabrina Camarena is a 52 yo with PMH morbid obesity, lupus, PE, hypoventilation syndrome, and blindness admitted to the hospital from for increased SOB and hypoxia. Intubated and successfully extubated placed on bipap for continued retained CO2. Also being treated for acute on chronic Diastolic CHF and c diff infection. At baseline wheelchair bound on chronic oxygen. Palliative care consulted for complex medical decision making. Met with Sabrina at the bedside with her son UNIQUE as well as her mother Yarely. Her family with Sabrina shared her medical history. 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 She was independent with her ADLs. She then had a right leg infection which per her family they were unsure if "it traveled to her brain". Since then she has lost her eyesight apparently "overnight" per family. She was also told at some point she has something on her brain dx from an MRI and was supposed to have a follow up ct head with infusion tomorrow 05/02 to check on this. With losing her eyesight, her mobility went downwards pretty quickly as well as not receiving much rehab after her severe leg infection. Since then she has been bed bound and dependent on ADLs. We reviewed her current medical condition. Sabrina thought she was at the hospital to "get stronger and be able to walk again". This is what she states she was told by [facility] staff as she is not receiving much rehab there. Her and her family's ultimate goal is to find out why she has suddenly lost her vision and what she can do to get back home again. We discussed because of her chronic medical conditions this may not be possible and some complications that could continue to happen in the future. Sabrina and her family were surprised by her medical conditions and did not realize she may never return back to where she was 2 years ago. We discussed what her wishes and goals would be for the future. Quality of life to Sabrina is being with her family and returning in some strength to hopefully be somewhat independent again. Discussed having her son UNIQUE as her MDPOA in addition to code status. Sabrina states she doesn't want to and wants to remain full code even though this may result in her being on life support. Assessment: Physical: - Pain: occasional body pain -tylenol PRN - norco PRN - on scheduled gabapentin - Dyspnea: always present - has xanax PRN which she takes with anxiety related SOB - norco as above - oxygen as needed - Nausea: mild - zofran PRN - being treated for c diff - blindness/weakness - has insomnia due to blindness on trazodone - PT/OT as able Emotional/psychological: has a lot of support from Family as well as God. Anxiety- - xanax as above - also on zoloft Advanced Care Planning: Is patient decisional?: Yes Code Status: Full- readdressed today and she wants to remain full MD POA: son UNIQUE is MDPOA. Plan: Sabrina's ultimate goal is to return home with her family. She is very much interested in trying to gain strength and mobility back. She would benefit from continued support on her difficult medical situation and transition. 05/01/17 13:50 Subjective: I'm feeling ok Objective: Social History: Has 3 children all involved. Mother still alive and lives locally. 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 Medication list reviewed ROS: General: fatigue, weakness ENT: negative Resp: dyspnea, cough GI: nausea : negative MS: occasional body pain Skin: right leg wound- chronic Neuro: negative Psych: insomnia Functional assessment: PPS: 40% Functional status:dependent on ADLs, IADLs Vital Signs Temp Pulse Resp BP Pulse Ox 36.8 C 98 18 109/72 92 05/01/17 12:00 05/01/17 12:00 05/01/17 12:00 05/01/17 12:00 05/01/17 12:00 Laboratory Results 04/28/17 05:45 04/30/17 05:30 04/30/17 05/01/17 05/02/17 05:59 05:59 05:59 Intake Total 1584 400 Output Total 1 Balance 1584 399 PT 12.3 SEC (12.0-15.0) 04/27/17 11:05 INR 0.92 (0.83-1.16) 04/27/17 11:05 Physical Exam - Physical Exam General Appearance: alert, no apparent distress Respiratory: No respiratory distress, No accessory muscle use Skin: normal color, warm/dry Extremities: No pedal edema Neuro/Psych: alert, oriented x 3 ICD10 Worksheet Patient Problems: Problems Problem Status Onset Clostridium difficile infection Acute ~04/28/17 Hypoxia Acute Obesity Acute Palliative care encounter Acute Headache Acute Pneumonia Acute - ICD10 Problem Qualifiers (1) Palliative care encounter
--- NOTE | 2017-05-01 15:10 | ASMTCMCOM ---
CM Note CM Note Notes: Patient had a Palliative consult today. Patient would like to remain Full Code and wants rehab so that she can return home with family. Paient is obese, blind, w/c bound, transfers with a lift, has not ambulated for 2yrs, needs total assist with ADL's. The Palliative team felt that patient may be very depressed, given her blindness and lack of mobility. Contact made to her BM SW, Ellie to see if a counselor could be lined up to visit with patient. Ellie said that [facility]. Ellie will check and get back with this CM. Contact made to [facility] senior division, [place], and left a message asking for services for patient. Date Signed: 05/01/2017 03:09 PM Electronically Signed By:Aida Johnson LCSW
--- NOTE | 2017-05-01 15:10 | ASMTCMCOM ---
CM Note CM Note Notes: Patient had a Palliative consult today. Patient would like to remain Full Code and wants rehab so that she can return home with family. Paient is obese, blind, w/c bound, transfers with a lift, has not ambulated for 2yrs, needs total assist with ADL's. The Palliative team felt that patient may be very depressed, given her blindness and lack of mobility. Contact made to her BM SW, Ellie to see if a counselor could be lined up to visit with patient. Ellie said that [facility]. Ellie will check and get back with this CM. Contact made to [facility], [place], and left a message asking for services for patient. Date Signed: 05/01/2017 03:09 PM Electronically Signed By:Aida Johnson LCSW
--- NOTE | 2017-05-01 15:10 | ASMTCMCOM ---
CM Note CM Note Notes: Patient had a Palliative consult today. Patient would like to remain Full Code and wants rehab so that she can return home with family. Paient is obese, blind, w/c bound, transfers with a lift, has not ambulated for 2yrs, needs total assist with ADL's. The Palliative team felt that patient may be very depressed, given her blindness and lack of mobility. Contact made to her BM SW, Ellie to see if a counselor could be lined up to visit with patient. Ellie said that [facility]. Ellie will check and get back with this CM. Contact made to [facility], [place], and left a message asking for services for patient. Date Signed: 05/01/2017 03:09 PM Electronically Signed By:Aida Johnson LCSW
--- NOTE | 2017-05-01 18:15 | HOSPPROG ---
Hospitalist Progress Note Assessment/Plan: DIAGNOSES: -acute on chronic hypoxemic/hypercarbic resp failure, pt unable to tolerate bipap -acute on chronic R side CHF, being diuresed -acute C diff colitis, is likely the cause of her abdominal pain -hx of PE, remains on xarelto -chronic ulcer on her R pretibial area now with some scabbing, will require ongoing wound care with dressing changes (this is not a pressure lesion; anterior leg, an old post op lesion) -obesity, suspect obesity hypoventilation syndrome Today she had palliative care conference. Included in the discussion was her assessment of her medical conditions and her goals for care. It was clear that she had the impression that her medical it issues should be resolved to the point where she will return back to a much higher level of function in terms of mobility as well as vision. When informed that it was felt that her chronic respiratory issues were not likely resolved below reversible nor was her vision likely reversible she was apparently somewhat surprised and expresses being upset with burning of this. She will now have to come to a new set of ideas regarding her long-term goals and these were discussed in detail with the palliative care discussion today. Reviewed in detail with Dr Bhatia today Seen on multidisc rounds PLANS: continue care in SDU continue resp support Continue diuresis with IV Lasix continue xarelto Continue p.o. vancomycin wound care consult SUBJECTIVE: remains sob but this is the 1st today she is able to say that she feels much less dyspneic to a small degree; very weak is largely intolerant of bipap, so using mask o2 but with ongoing hypoxemia diarrhea and abd pain improving but still with some pain OBJECTIVE: vitals: Stable without fever card monitor: sinus exam: alert oriented skin no cyanosis jvd not visible but obese enough to make exam unreliable Respirations remain labored Lungs with extremely diminished breath sounds no wheeze Heart regular Abdomen extremely obese, soft somewhat tender nondistended Slight decrease in edema of the limbs Objective: Vital Signs Temp Pulse Resp BP Pulse Ox 36.9 C 88 20 111/73 96 05/01/17 15:47 05/01/17 15:47 05/01/17 15:47 05/01/17 15:47 05/01/17 15:47 Laboratory Results 04/28/17 05:45 04/30/17 05:30 04/30/17 05/01/17 05/02/17 06:59 06:59 06:59 Intake Total 1584 400 Output Total 1 Balance 1584 399 PT 12.3 SEC (12.0-15.0) 04/27/17 11:05 INR 0.92 (0.83-1.16) 04/27/17 11:05 ICD10 Worksheet Patient Problems: Problems Problem Status Onset Clostridium difficile infection Acute ~04/28/17 Hypoxia Acute Obesity Acute Palliative care encounter Acute Headache Acute Pneumonia Acute
[2017-05-01] MEDS: RIVAROXABAN 20 MG TAB PO SCH (19:59)
[2017-05-01] MEDS: traZODone 50 MG TAB PO SCH (19:59)
[2017-05-01] MEDS: ACETAMINOPHEN 325 MG TAB PO PRN (20:00)
[2017-05-01] MEDS: LATANOPROST 0.005% 2.5 ML OPHT DROPS EACHEYE SCH (20:04)
[2017-05-02] MEDS: ALPRAZolam 0.5 MG TAB PO PRN ×3 (02:44→21:11)
[2017-05-02] MEDS: VANCOMYCIN 125 MG/2.5 ML UDL PO SCH ×4 (06:36→21:15)
[2017-05-02] MEDS: DIVALPROEX ER 250 MG TAB PO SCH ×2 (08:20→21:12)
[2017-05-02] MEDS: GABAPENTIN 300 MG CAP PO SCH ×3 (08:21→21:13)
[2017-05-02] MEDS: SERTRALINE HCL 100 MG TAB PO SCH (08:21)
[2017-05-02] MEDS: DORZOLAMIDE 2% OPTH DROPS OP SCH ×2 (08:21→21:18)
[2017-05-02] MEDS: MULTIVITAMINS 1 EACH TAB PO SCH (08:21)
[2017-05-02] MEDS: FUROSEMIDE 20 MG/2 ML VIAL IVP SCH ×2 (08:21→16:50)
[2017-05-02] MEDS: PANTOPRAZOLE SODIUM 40 MG TAB PO SCH (08:21)
[2017-05-02] MEDS: DEXAMETHASONE 4 MG TAB PO SCH ×2 (08:21→21:13)
[2017-05-02] MEDS: BRIMONIDINE 0.2% 5 ML OPHT.BTL EACHEYE SCH ×3 (08:22→21:11)
[2017-05-02] MEDS: NEOMY SULF/BACITRAC ZN/POLY 30 GM OINTTUBE TP SCH ×2 (08:22→21:15)
[2017-05-02] MEDS: TIMOLOL 0.5% 15 ML OPHT.BTL EACHEYE SCH ×2 (08:23→21:18)
--- NOTE | 2017-05-02 08:58 | PDINTPN ---
Certified Surgical Technician Progress Note Assessment/Plan: Assessment/Plan: * Acute respiratory failure: Stable on BiPAP at night. Supplemental oxygen during daytime * Hypotension: Resolved. * Possible sepsis-resolved * Atrial fibrillation with rapid ventricular response. Resolved post cardioversion. On amiodarone. On heparin drip. Plans per Cardiology. * Acute renal failure-resolved * Elevated liver function tests: Likely secondary to shock liver. Follow. * Anemia: Stable * GI prophylaxis: On famotidine. * Right leg wound-followed by wound care * PT/OT-patient seems motivated to improve her lower extremity strength Subjective: Resting comfortably. Somewhat teary after meeting with palliative care yesterday. Objective: Vital Signs Temp Pulse Resp BP Pulse Ox 36.7 C 88 20 118/74 95 05/02/17 08:00 05/02/17 08:00 05/02/17 08:00 05/02/17 08:00 05/02/17 08:00 Laboratory Results 04/28/17 05:45 04/30/17 05:30 05/01/17 05/02/17 05/03/17 05:59 05:59 05:59 Intake Total 400 980 Output Total 1 Balance 399 980 PT 12.3 SEC (12.0-15.0) 04/27/17 11:05 INR 0.92 (0.83-1.16) 04/27/17 11:05 Physical Exam - Physical Exam General Appearance: alert, mild distress, obese EENT: PERRL/EOMI, normal ENT inspection Neck: non-tender, full range of motion, supple, normal inspection Respiratory: decreased breath sounds Cardiac/Chest: normal peripheral pulses, regular rate, rhythm Abdomen: normal bowel sounds, non-tender, soft Pelvic Exam: deferred Rectal: deferred Skin: normal color, warm/dry Neuro/Psych: no motor/sensory deficits, alert, normal mood/affect, oriented x 3 ICD10 Worksheet Patient Problems: Problems Problem Status Onset Clostridium difficile infection Acute ~04/28/17 Hypoxia Acute Obesity Acute Palliative care encounter Acute Headache Acute Pneumonia Acute
[2017-05-02] MEDS: SENNOSIDES/DOCUSATE SODIUM TAB PO SCH (09:09)
--- NOTE | 2017-05-02 12:34 | HOSPPROG ---
Hospitalist Progress Note Assessment/Plan: DIAGNOSES: -acute on chronic hypoxemic/hypercarbic resp failure -acute on chronic R side CHF, being diuresed -acute C diff colitis, is likely the cause of her abdominal pain; on p.o. Vanco -hx of PE, remains on xarelto -chronic ulcer on her R pretibial area now with some scabbing, requires ongoing wound care with dressing changes (this is not a pressure lesion; anterior leg, an old post op lesion) -obesity, suspect obesity hypoventilation syndrome -SLE, steroid dependent -Chronic Blindness -Chronic and severe weakness and deconditioning, essentially bed bound, has not been up to chair for "a long time" Reviewed in detail with Dr Bhatia today Seen on multidisc rounds PLANS: continue care in SDU continue resp support Continue diuresis with IV Lasix continue xarelto Continue p.o. vancomycin wound care nurses are seeing for her leg wound continue therapies SUBJECTIVE: remains sob and notes this is worse post prandial due to abdominal bloating and reflux (states hx of gastroparesis) did use some bipap overnight, so using mask o2 but with ongoing hypoxemia diarrhea and abd pain mostly resolved, and now back to her baseline which is some epigastric bloating and discomfort postprandially Again expresses significant disappointment that she has not been getting more therapies at her nursing facility and that she has not made more progress over time, still hoping that she can eventually walk again OBJECTIVE: vitals: Stable without fever card monitor: sinus exam: alert oriented skin no cyanosis Respirations notably less labored Lungs with extremely diminished breath sounds no wheeze Heart regular Abdomen extremely obese, soft nondistended, minimal if any tenderness today Still some edema at the feet and ankles but slowly getting better Objective: Vital Signs Temp Pulse Resp BP Pulse Ox 36.7 C 98 16 105/68 94 05/02/17 11:39 05/02/17 11:39 05/02/17 11:39 05/02/17 11:39 05/02/17 11:39 Laboratory Results 04/28/17 05:45 04/30/17 05:30 05/01/17 05/02/17 05/03/17 06:59 06:59 06:59 Intake Total 400 980 Output Total 1 Balance 399 980 PT 12.3 SEC (12.0-15.0) 04/27/17 11:05 INR 0.92 (0.83-1.16) 04/27/17 11:05 ICD10 Worksheet Patient Problems: Problems Problem Status Onset Clostridium difficile infection Acute ~04/28/17 Hypoxia Acute Obesity Acute Palliative care encounter Acute Headache Acute Pneumonia Acute
[2017-05-02] MEDS ORDERED: PROTOCOL POTASSIUM 1 DOSE MISC PRN (19:34)
[2017-05-02] MEDS: RIVAROXABAN 20 MG TAB PO SCH (21:13)
[2017-05-02] MEDS: traZODone 50 MG TAB PO SCH (21:14)
[2017-05-02] MEDS: LATANOPROST 0.005% 2.5 ML OPHT DROPS EACHEYE SCH (21:19)
[2017-05-03] MEDS: POTASSIUM Cl (KCl) 50 ML IV SCH ×2 (00:11→00:22)
[2017-05-03] MEDS: ALPRAZolam 0.5 MG TAB PO PRN (07:19)
[2017-05-03] MEDS: VANCOMYCIN 125 MG/2.5 ML UDL PO SCH ×4 (07:20→21:57)
[2017-05-03] MEDS: MULTIVITAMINS 1 EACH TAB PO SCH (08:32)
[2017-05-03] MEDS: DEXAMETHASONE 4 MG TAB PO SCH ×2 (08:32→21:57)
[2017-05-03] MEDS: SERTRALINE HCL 100 MG TAB PO SCH (08:32)
[2017-05-03] MEDS: FUROSEMIDE 20 MG/2 ML VIAL IVP SCH ×2 (08:32→16:00)
[2017-05-03] MEDS: GABAPENTIN 300 MG CAP PO SCH ×3 (08:32→19:57)
[2017-05-03] MEDS: NEOMY SULF/BACITRAC ZN/POLY 30 GM OINTTUBE TP SCH (08:32)
[2017-05-03] MEDS: DIVALPROEX ER 250 MG TAB PO SCH ×2 (08:32→21:57)
[2017-05-03] MEDS: PANTOPRAZOLE SODIUM 40 MG TAB PO SCH (08:32)
[2017-05-03] MEDS: SENNOSIDES/DOCUSATE SODIUM TAB PO SCH (08:32)
[2017-05-03] MEDS: TIMOLOL 0.5% 15 ML OPHT.BTL EACHEYE SCH ×2 (08:33→22:18)
[2017-05-03] MEDS: DORZOLAMIDE 2% OPTH DROPS OP SCH ×2 (08:33→21:56)
[2017-05-03] MEDS: BRIMONIDINE 0.2% 5 ML OPHT.BTL EACHEYE SCH ×3 (08:33→22:18)
[2017-05-03] MEDS: ACETAMINOPHEN 325 MG TAB PO PRN (11:10)
[2017-05-03] MEDS: IPRATROPIUM/ALBUTEROL 3 ML DEYVIAL IH SCH ×3 (14:23→21:46)
[2017-05-03] MEDS: ALPRAZolam 0.25 MG TAB PO PRN ×2 (14:43→20:15)
--- NOTE | 2017-05-03 18:10 | HOSPPROG ---
Hospitalist Progress Note Assessment/Plan: DIAGNOSES: -acute on chronic hypoxemic/hypercarbic resp failure -acute on chronic R side CHF, being diuresed -acute C diff colitis, is likely the cause of her abdominal pain; on p.o. 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 Today she tells me that she has been seeing a doctor recently who looked through outpatient records and determined that she had never really been evaluated for her loss of vision in her occipital headaches. It turns out an MRI scan had been ordered in the outpatient setting for May 02, yesterday. We will order that to be done tomorrow. She herself at this time does not recall whether she has actually seen an heating element builder for her headaches in the past. PLANS: apparently nebs missed when pharm did her home med rec, will add those now continue resp support Continue diuresis with IV Lasix, follow K MRI Brain ordered for 05/04 to eval for cause of headache and blindness continue xarelto Continue p.o. vancomycin wound care nurses are seeing for her leg wound (chronic) continue therapies DISPOSITION: Potentially discharge in 1-2 days SUBJECTIVE: She says her breathing feels little bit better today She mentions that she has been in the middle of evaluation in the outpatient setting for blindness and occipital headaches and was to have an MRI which was previously scheduled in the outpatient setting for yesterday OBJECTIVE: vitals: Stable without fever card monitor: sinus exam: alert oriented skin no cyanosis Respirations notably less labored Lungs with extremely diminished breath sounds no wheeze Heart regular Abdomen extremely obese, soft nondistended, minimal if any tenderness today Still some edema at the feet and ankles but slowly getting better Objective: Vital Signs Temp Pulse Resp BP Pulse Ox 37.0 C 104 H 20 109/70 94 05/03/17 14:56 05/03/17 17:26 05/03/17 17:26 05/03/17 14:56 05/03/17 17:26 Laboratory Results 04/28/17 05:45 05/03/17 04:32 05/02/17 05/03/17 05/04/17 06:59 06:59 06:59 Intake Total 980 2200 Balance 980 2200 PT 12.3 SEC (12.0-15.0) 04/27/17 11:05 INR 0.92 (0.83-1.16) 04/27/17 11:05 - Time Spent With Patient Time Spent with Patient: greater than 35 minutes Time Spent with Patient: Greater than 35 minutes spent on this patients care, greater than 50% of time spent counseling, educating, and coordinating care regarding the above mentioned plan. ICD10 Worksheet Patient Problems: Problems Problem Status Onset Clostridium difficile infection Acute ~04/28/17 Hypoxia Acute Obesity Acute Palliative care encounter Acute Headache Acute Pneumonia Acute
[2017-05-03] MEDS: traZODone 50 MG TAB PO SCH (21:57)
[2017-05-03] MEDS: RIVAROXABAN 20 MG TAB PO SCH (21:57)
[2017-05-03] MEDS: LATANOPROST 0.005% 2.5 ML OPHT DROPS EACHEYE SCH (22:19)
[2017-05-04] MEDS: IPRATROPIUM/ALBUTEROL 3 ML DEYVIAL IH SCH ×6 (00:29→21:39)
[2017-05-04] MEDS: NEOMY SULF/BACITRAC ZN/POLY 30 GM OINTTUBE TP SCH ×3 (02:40→21:57)
[2017-05-04] MEDS: ALPRAZolam 0.25 MG TAB PO PRN ×3 (05:10→22:05)
[2017-05-04] MEDS: VANCOMYCIN 125 MG/2.5 ML UDL PO SCH ×4 (05:10→21:56)
[2017-05-04] MEDS: GABAPENTIN 300 MG CAP PO SCH ×3 (09:05→21:56)
[2017-05-04] MEDS: PANTOPRAZOLE SODIUM 40 MG TAB PO SCH (09:05)
[2017-05-04] MEDS: SENNOSIDES/DOCUSATE SODIUM TAB PO SCH (09:05)
[2017-05-04] MEDS: DIVALPROEX ER 250 MG TAB PO SCH ×2 (09:09→21:56)
[2017-05-04] MEDS: DEXAMETHASONE 4 MG TAB PO SCH ×2 (09:09→21:56)
[2017-05-04] MEDS: SERTRALINE HCL 100 MG TAB PO SCH (09:09)
[2017-05-04] MEDS: MULTIVITAMINS 1 EACH TAB PO SCH (09:09)
[2017-05-04] MEDS: FUROSEMIDE 20 MG/2 ML VIAL IVP SCH ×2 (09:09→14:38)
[2017-05-04] MEDS: TIMOLOL 0.5% 15 ML OPHT.BTL EACHEYE SCH ×2 (09:22→22:14)
[2017-05-04] MEDS: BRIMONIDINE 0.2% 5 ML OPHT.BTL EACHEYE SCH ×3 (09:22→21:57)
[2017-05-04] MEDS: DORZOLAMIDE 2% OPTH DROPS OP SCH ×2 (09:22→21:58)
[2017-05-04] MEDS: LATANOPROST 0.005% 2.5 ML OPHT DROPS EACHEYE SCH (09:23)
--- NOTE | 2017-05-04 14:05 | ASMTCMCOM ---
CM Note CM Note Notes: Reviewed chart, d/w RN. Current plan is still to return to [facility] when medically stable. I met w/pt and she is in agreement w/this plan. Date Signed: 05/04/2017 02:04 PM Electronically Signed By:Cynthia Hooper RN
--- NOTE | 2017-05-04 14:05 | ASMTCMCOM ---
CM Note CM Note Notes: Reviewed chart, d/w RN. Current plan is still to return to [facility] when medically stable. I met w/pt and she is in agreement w/this plan. Date Signed: 05/04/2017 02:04 PM Electronically Signed By:Cynthia Hooper RN
--- NOTE | 2017-05-04 14:35 | HOSPPROG ---
Hospitalist Progress Note Assessment/Plan: 52y female resides at . C/O SOB. Chart reviewed. First encounter. -acute on chronic hypoxemic/hypercarbic resp failure stable -acute on chronic R side CHF, being diuresed Continue diuresis with IV Lasix, follow K transition to PO -acute C diff colitis, is likely the cause of her abdominal pain; on p.o. 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 Still some SOB. Would like to get out of bed. Objective: Vital Signs Temp Pulse Resp BP Pulse Ox 36.7 C 108 H 20 124/84 H 94 05/04/17 08:23 05/04/17 12:13 05/04/17 12:13 05/04/17 08:23 05/04/17 12:13 Laboratory Results 04/28/17 05:45 05/04/17 05:05 05/03/17 05/04/17 05/05/17 05:59 05:59 05:59 Intake Total 2200 Balance 2200 PT 12.3 SEC (12.0-15.0) 04/27/17 11:05 INR 0.92 (0.83-1.16) 04/27/17 11:05 - Physical Exam Constitutional: chronically ill appearing, obese, uncomfortable Eyes: No PERRL, No anicteric sclera, No EOMI Ears, Nose, Mouth, Throat: moist mucous membranes, hearing normal, ears appear normal Cardiovascular: regular rate and rhythym, edema, No JVD Respiratory: no respiratory distress, no rales or rhonchi, reduced air movement Gastrointestinal: normoactive bowel sounds, No tenderness, No ascites Skin: warm, erythema, No mottled Musculoskeletal: no joint effusions, generalized weakness, No normal joint ROM Psychiatric: not anxious, poor insight, poor judgement, poor memory ICD10 Worksheet Patient Problems: Problems Problem Status Onset Palliative care encounter Acute Clostridium difficile infection Acute ~04/28/17 Pneumonia Acute Hypoxia Acute Headache Acute Obesity Acute
[2017-05-04] MEDS: traZODone 50 MG TAB PO SCH (21:56)
[2017-05-04] MEDS: RIVAROXABAN 20 MG TAB PO SCH (21:56)
[2017-05-05] MEDS: IPRATROPIUM/ALBUTEROL 3 ML DEYVIAL IH SCH ×6 (01:37→21:56)
[2017-05-05] MEDS: VANCOMYCIN 125 MG/2.5 ML UDL PO SCH ×4 (06:08→22:39)
[2017-05-05] MEDS: ALPRAZolam 0.25 MG TAB PO PRN ×3 (08:25→22:40)
[2017-05-05] MEDS: FUROSEMIDE 20 MG/2 ML VIAL IVP SCH (08:39)
[2017-05-05] MEDS: MULTIVITAMINS 1 EACH TAB PO SCH (08:50)
[2017-05-05] MEDS: GABAPENTIN 300 MG CAP PO SCH ×3 (08:51→23:12)
[2017-05-05] MEDS: DIVALPROEX ER 250 MG TAB PO SCH ×2 (08:51→23:12)
[2017-05-05] MEDS: SENNOSIDES/DOCUSATE SODIUM TAB PO SCH (08:51)
[2017-05-05] MEDS: PANTOPRAZOLE SODIUM 40 MG TAB PO SCH (08:52)
[2017-05-05] MEDS: SERTRALINE HCL 100 MG TAB PO SCH (08:53)
[2017-05-05] MEDS: DEXAMETHASONE 4 MG TAB PO SCH ×2 (08:53→22:37)
[2017-05-05] MEDS: BRIMONIDINE 0.2% 5 ML OPHT.BTL EACHEYE SCH ×3 (08:54→20:13)
[2017-05-05] MEDS: DORZOLAMIDE 2% OPTH DROPS OP SCH ×2 (09:22→22:38)
[2017-05-05] MEDS: TIMOLOL 0.5% 15 ML OPHT.BTL EACHEYE SCH ×2 (09:22→23:13)
[2017-05-05] MEDS: NEOMY SULF/BACITRAC ZN/POLY 30 GM OINTTUBE TP SCH (11:26)
--- NOTE | 2017-05-05 14:04 | HOSPPROG ---
Hospitalist Progress Note Assessment/Plan: 52y female resides at . C/O SOB. -acute on chronic hypoxemic/hypercarbic resp failure stable baseline 4l on 6l -acute on chronic R side CHF, being diuresed transition to PO lasix -acute C diff colitis, is likely the cause of her abdominal pain; on p.o. 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 C/O SOB. Objective: Vital Signs Temp Pulse Resp BP Pulse Ox 36.6 C 94 18 125/77 H 92 05/05/17 08:00 05/05/17 09:45 05/05/17 09:45 05/05/17 08:00 05/05/17 09:45 Laboratory Results 04/28/17 05:45 05/05/17 04:20 05/04/17 05/05/17 05/06/17 05:59 05:59 05:59 Intake Total 1220 Balance 1220 PT 12.3 SEC (12.0-15.0) 04/27/17 11:05 INR 0.92 (0.83-1.16) 04/27/17 11:05 ICD10 Worksheet Patient Problems: Problems Problem Status Onset Palliative care encounter Acute Clostridium difficile infection Acute ~04/28/17 Pneumonia Acute Hypoxia Acute Headache Acute Obesity Acute
[2017-05-05] MEDS ORDERED: predniSONE 20 MG TAB PO ONE (14:05)
[2017-05-05] MEDS: FUROSEMIDE 20 MG TAB PO SCH (15:15)
[2017-05-05] MEDS: ACETAMINOPHEN 325 MG TAB PO PRN (17:49)
[2017-05-05] MEDS: ONDANSETRON 4 MG/2 ML VIAL IVP PRN (18:22)
[2017-05-05] MEDS ORDERED: NS 500 ML IV ONE (19:10)
[2017-05-05] MEDS: NS 1,000 ML IV SCH (20:12)
--- NOTE | 2017-05-05 21:46 | HOSPPROG ---
Hospitalist Progress Note Assessment/Plan: Called for stat team. Oxygen requirement had been going on all day long. Patient had complained of some dyspnea. Blood pressure has also been low. No coughing. Exam reveals clear lungs. Chest x-ray shows persistent left lower lobe consolidation. Assessment * Hypoxia - uncertain cause, possible pneumonia that is evolving, also blood pressure has dropped probably a little bit of over-diuresis. May have some underlying pulmonary hypertension that is volume dependent Plan * Will check CBC and procalcitonin to evaluate for infection * Also check CT scan of chest * Hold Lasix * Will give little bit of fluid * Possibly start antibiotics if white blood cell count elevated procalcitonin is positive Objective: Vital Signs Temp Pulse Resp BP Pulse Ox 36.6 C 92 16 88/56 L 93 05/05/17 18:20 05/05/17 18:43 05/05/17 18:43 05/05/17 18:20 05/05/17 18:43 Laboratory Results 04/28/17 05:45 05/05/17 04:20 05/04/17 05/05/17 05/06/17 05:59 05:59 05:59 Intake Total 1220 750 Output Total 1 Balance 1220 749 PT 12.3 SEC (12.0-15.0) 04/27/17 11:05 INR 0.92 (0.83-1.16) 04/27/17 11:05 ICD10 Worksheet Patient Problems: Problems Problem Status Onset Clostridium difficile infection Acute ~04/28/17 Hypoxia Acute Obesity Acute Palliative care encounter Acute Headache Acute Pneumonia Acute
[2017-05-05] MEDS: LATANOPROST 0.005% 2.5 ML OPHT DROPS EACHEYE SCH (22:39)
[2017-05-05] MEDS: traZODone 50 MG TAB PO SCH (22:39)
[2017-05-05] MEDS: BENZONATATE 100 MG CAP PO PRN (22:39)
[2017-05-05] MEDS: RIVAROXABAN 20 MG TAB PO SCH (23:13)
[2017-05-06] MEDS: IPRATROPIUM/ALBUTEROL 3 ML DEYVIAL IH SCH ×6 (01:31→20:45)
[2017-05-06 04:12] LABS: PLATELET COUNT 126 10^3/uL (150-400)
[2017-05-06] MEDS: VANCOMYCIN 125 MG/2.5 ML UDL PO SCH ×4 (06:07→22:12)
[2017-05-06] MEDS: NS 1,000 ML IV SCH (06:09)
[2017-05-06] MEDS: MULTIVITAMINS 1 EACH TAB PO SCH (09:31)
[2017-05-06] MEDS: DEXAMETHASONE 4 MG TAB PO SCH ×2 (09:31→22:14)
[2017-05-06] MEDS: GABAPENTIN 300 MG CAP PO SCH ×3 (09:31→23:02)
[2017-05-06] MEDS: SERTRALINE HCL 100 MG TAB PO SCH (09:31)
[2017-05-06] MEDS: SENNOSIDES/DOCUSATE SODIUM TAB PO SCH (09:31)
[2017-05-06] MEDS: PANTOPRAZOLE SODIUM 40 MG TAB PO SCH (09:31)
[2017-05-06] MEDS: DIVALPROEX ER 250 MG TAB PO SCH ×2 (09:31→23:00)
[2017-05-06] MEDS: DORZOLAMIDE 2% OPTH DROPS OP SCH ×2 (09:32→21:58)
[2017-05-06] MEDS: BRIMONIDINE 0.2% 5 ML OPHT.BTL EACHEYE SCH ×3 (09:33→21:57)
[2017-05-06] MEDS: TIMOLOL 0.5% 15 ML OPHT.BTL EACHEYE SCH ×2 (09:42→22:00)
--- NOTE | 2017-05-06 11:07 | PDINTPN ---
Leave Coordinator Progress Note Assessment/Plan: Assessment/Plan: * Acute respiratory failure: Stable on BiPAP at night. Supplemental oxygen during daytime * Obstructive sleep apnea-requiring CPAP at night. She had a sleep study many years ago done at [facility]. * Obesity hypoventilation syndrome * Hypotension: Resolved. * Possible sepsis-resolved * Atrial fibrillation with rapid ventricular response. Resolved post cardioversion. On amiodarone. On heparin drip. Plans per Cardiology. * Acute renal failure-resolved * Anemia: Stable * GI prophylaxis: On famotidine. * Right leg wound-followed by wound care * PT/OT-patient seems motivated to improve her lower extremity strength * Disposition-she will likely need LTAC Subjective: Resting comfortably. Awake and alert. Comfortable on supplemental oxygen Objective: Vital Signs Temp Pulse Resp BP Pulse Ox 36.4 C 91 16 111/76 90 L 05/05/17 21:00 05/06/17 08:00 05/06/17 08:00 05/06/17 08:00 05/06/17 08:00 Laboratory Results 05/06/17 04:00 05/06/17 04:00 05/05/17 05/06/17 05/07/17 05:59 05:59 05:59 Intake Total 1220 1678 Output Total 1 Balance 1220 1677 PT 12.3 SEC (12.0-15.0) 04/27/17 11:05 INR 0.92 (0.83-1.16) 04/27/17 11:05 Physical Exam - Physical Exam General Appearance: alert, no apparent distress EENT: PERRL/EOMI Neck: non-tender, full range of motion Respiratory: decreased breath sounds, other (Shallow breaths), No wheezing Cardiac/Chest: normal peripheral pulses, regular rate, rhythm Abdomen: normal bowel sounds, non-tender, soft Pelvic Exam: deferred Rectal: deferred Neuro/Psych: alert ICD10 Worksheet Patient Problems: Problems Problem Status Onset Clostridium difficile infection Acute ~04/28/17 Hypoxia Acute Obesity Acute Palliative care encounter Acute Headache Acute Pneumonia Acute
--- NOTE | 2017-05-06 13:35 | HOSPPROG ---
Hospitalist Progress Note Assessment/Plan: 52y female resides at [facility] -acute on chronic hypoxemic/hypercarbic resp failure with worsening AHRF 05/05 thought to be noncompliance with BiPAP in the setting of suspected underlying obesity hypoventilation syndrome -cont bi papa and close monitoring -discussed trach with Dr. Bhatia and pt -transfer to stepdown -doubt pna in the setting of nml wbc/absence of fever, and low pct -acute on chronic R side CHF, being diuresed transition to PO lasix -acute C diff colitis, is likely the cause of her abdominal pain; on p.o. 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 denies sob/cheat pain Objective: Vital Signs Temp Pulse Resp BP Pulse Ox 36.4 C 86 20 111/76 94 05/05/17 21:00 05/06/17 13:11 05/06/17 13:11 05/06/17 08:00 05/06/17 13:11 Laboratory Results 05/06/17 04:00 05/06/17 04:00 05/05/17 05/06/17 05/07/17 05:59 05:59 05:59 Intake Total 1220 1678 Output Total 1 Balance 1220 1677 PT 12.3 SEC (12.0-15.0) 04/27/17 11:05 INR 0.92 (0.83-1.16) 04/27/17 11:05 - Physical Exam Constitutional: no apparent distress, appears nourished, not in pain, other ( obese) Cardiovascular: regular rate and rhythym, no murmur, rub, or gallop Respiratory: no respiratory distress, no rales or rhonchi, clear to auscultation , reduced air movement Gastrointestinal: normoactive bowel sounds, soft, non-tender abdomen, no palpable masses, No guarding, No rebound Skin: warm, No rash Neurologic: AAOx3, CN II-XII Intact, No facial droop ICD10 Worksheet Patient Problems: Problems Problem Status Onset Palliative care encounter Acute Clostridium difficile infection Acute ~04/28/17 Pneumonia Acute Hypoxia Acute Headache Acute Obesity Acute
[2017-05-06] MEDS: RIVAROXABAN 20 MG TAB PO SCH (21:59)
[2017-05-06] MEDS: LATANOPROST 0.005% 2.5 ML OPHT DROPS EACHEYE SCH (21:59)
[2017-05-06] MEDS: ALPRAZolam 0.25 MG TAB PO PRN (22:14)
[2017-05-06] MEDS: traZODone 50 MG TAB PO SCH (22:14)
[2017-05-06] MEDS: BENZONATATE 100 MG CAP PO PRN (22:14)
[2017-05-07] MEDS: IPRATROPIUM/ALBUTEROL 3 ML DEYVIAL IH SCH ×4 (00:06→13:45)
[2017-05-07] MEDS ORDERED: POTASSIUM CL 20 MEQ TAB PO ONE (03:30)
[2017-05-07] MEDS: VANCOMYCIN 125 MG/2.5 ML UDL PO SCH ×4 (05:18→20:36)
[2017-05-07] MEDS: BRIMONIDINE 0.2% 5 ML OPHT.BTL EACHEYE SCH ×3 (09:39→20:38)
[2017-05-07] MEDS: GABAPENTIN 300 MG CAP PO SCH ×3 (09:40→20:35)
[2017-05-07] MEDS: PANTOPRAZOLE SODIUM 40 MG TAB PO SCH (09:40)
[2017-05-07] MEDS: DEXAMETHASONE 4 MG TAB PO SCH ×2 (09:40→20:36)
[2017-05-07] MEDS: MULTIVITAMINS 1 EACH TAB PO SCH (09:40)
[2017-05-07] MEDS: SERTRALINE HCL 100 MG TAB PO SCH (09:40)
[2017-05-07] MEDS: TIMOLOL 0.5% 15 ML OPHT.BTL EACHEYE SCH ×2 (09:47→20:37)
[2017-05-07] MEDS: DORZOLAMIDE 2% OPTH DROPS OP SCH ×2 (09:48→20:39)
[2017-05-07] MEDS: SENNOSIDES/DOCUSATE SODIUM TAB PO SCH (09:56)
[2017-05-07] MEDS: DIVALPROEX ER 250 MG TAB PO SCH ×2 (10:06→20:35)
[2017-05-07] MEDS: ONDANSETRON 4 MG/2 ML VIAL IVP PRN (11:01)
[2017-05-07] MEDS ORDERED: IPRATROPIUM/ALBUTEROL 3 ML DEYVIAL IH SCH ×2 (14:00→16:00)
--- NOTE | 2017-05-07 15:02 | PDINTPN ---
Workforce Development Program Director Progress Note Assessment/Plan: Assessment/plan: 52 F with morbid obesity and blindness from glaucoma admitted 04/27/17 with acute on chronic respiratory failure complicated by afib requiring amiodarone. She responded well to NIPPV, though has had a fluctuating course. * Acute on chronic respiratory failure- Her ABG on admission showed partially compensated hypercapnic respiratory failure which may have been related to SHANNA/ OHS as well as primary hypoventilation from her known chronically elevated right hemidiaphragm. In either case, she should be discharged on Bipap on the same settings used here * SHANNA- she will need an outpatient sleep study as soon as possible after discharge, though she may require LTACH first. * afib- Now in NSR. Change albuterol to prn only. Not certain she needs additional lasix, but will try to clarify with hospitalist. * Hx SLE on chronic steroids, now on dexamethasone. Return to prednisone? Subjective: Feels well and tolerating bipap very well qhs. Objective: Vital Signs Temp Pulse Resp BP Pulse Ox 36.4 C 88 16 104/59 L 95 05/06/17 21:00 05/07/17 09:45 05/07/17 09:45 05/07/17 00:00 05/07/17 09:45 Laboratory Results 05/06/17 04:00 05/07/17 05:45 05/06/17 05/07/17 05/08/17 05:59 05:59 05:59 Intake Total 1678 1550 Output Total 1 Balance 1677 1550 PT 12.3 SEC (12.0-15.0) 04/27/17 11:05 INR 0.92 (0.83-1.16) 04/27/17 11:05 Physical Exam - Physical Exam General Appearance: alert, no apparent distress, obese EENT: PERRL/EOMI Neck: supple Respiratory: lungs clear, normal breath sounds, No respiratory distress Cardiac/Chest: regular rate, rhythm, edema Abdomen: non-tender, soft, No distended Skin: normal color, warm/dry Lymphatic: no adenopathy Extremities: pedal edema, No calf tenderness Neuro/Psych: alert, normal mood/affect, oriented x 3 ICD10 Worksheet Patient Problems: Problems Problem Status Onset Clostridium difficile infection Acute ~04/28/17 Hypoxia Acute Obesity Acute Palliative care encounter Acute Headache Acute Pneumonia Acute
--- NOTE | 2017-05-07 15:54 | ASMTCMCOM ---
CM Note CM Note Notes: Concern for this 52 year old female who has been bed bound and blind and probably very depressed. Patient's hope is to someday be able to return home with family. Presently bed bound, obese needing a Lift to transfer. Patient has Medicaid which does not pay for rehab at the SNF level of care. PT/OT at [facility] willing determine if patient is interested in rehab. They will need an MD Order. This CM contacted [facility] and left messages for the Solutions Architect Consultant, Financial Services and , to determine patient's disability status. She may have Medicaid disability to be in [facility]. After 2 years of Medicaid disability she could apply for Medicare disability which would give her more rehab benefits. Contacted her son Marino and asked him about her disability status-he was unsure. Also asked him if he might know where her c-pap machine was located. Zack. to ask the siblings who were living with her and try to find where it's located. This CM spoke to the Solutions Architect Consultant at . She reports that Patient has been there for approx 3mos. She has a c-pap machine at but refuses to use it, makes her claustrophobic. Patient was working w/therapies when she first came to but became very anxious using the Lift and now refuses to get into her W/C. Admin reports that she will look into her disability status. Patient has been transferred to . Date Signed: 05/07/2017 03:53 PM Electronically Signed By:Aida Johnson LCSW
--- NOTE | 2017-05-07 15:54 | ASMTCMCOM ---
CM Note CM Note Notes: Concern for this 52 year old female who has been bed bound and blind and probably very depressed. Patient's hope is to someday be able to return home with family. Presently bed bound, obese needing a Lift to transfer. Patient has Medicaid which does not pay for rehab at the SNF level of care. PT/OT at [facility] willing determine if patient is interested in rehab. They will need an MD Order. This CM contacted [facility] and left messages for the Fib[employer] Luggage Molder, Financial Services and , to determine patient's disability status. She may have Medicaid disability to be in [facility]. After 2 years of Medicaid disability she could apply for Medicare disability which would give her more rehab benefits. Contacted her son Marino and asked him about her disability status-he was unsure. Also asked him if he might know where her c-pap machine was located. Zack. to ask the siblings who were living with her and try to find where it's located. This CM spoke to the Fiberglass Luggage Molder at . She reports that Patient has been there for approx 3mos. She has a c-pap machine at but refuses to use it, makes her claustrophobic. Patient was working w/therapies when she first came to but became very anxious using the Lift and now refuses to get into her W/C. Admin reports that she will look into her disability status. Patient has been transferred to . Date Signed: 05/07/2017 03:53 PM Electronically Signed By:Aida Johnson LCSW
--- NOTE | 2017-05-07 15:54 | ASMTCMCOM ---
CM Note CM Note Notes: Concern for this 52 year old female who has been bed bound and blind and probably very depressed. Patient's hope is to someday be able to return home with family. Presently bed bound, obese needing a Lift to transfer. Patient has Medicaid which does not pay for rehab at the SNF level of care. PT/OT at [facility] willing determine if patient is interested in rehab. They will need an MD Order. This CM contacted [facility] and left messages for the Airport Planner, Financial Services and , to determine patient's disability status. She may have Medicaid disability to be in [facility]. After 2 years of Medicaid disability she could apply for Medicare disability which would give her more rehab benefits. Contacted her son Marino and asked him about her disability status-he was unsure. Also asked him if he might know where her c-pap machine was located. Zack. to ask the siblings who were living with her and try to find where it's located. This CM spoke to the Airport Planner at . She reports that Patient has been there for approx 3mos. She has a c-pap machine at but refuses to use it, makes her claustrophobic. Patient was working w/therapies when she first came to but became very anxious using the Lift and now refuses to get into her W/C. Admin reports that she will look into her disability status. Patient has been transferred to . Date Signed: 05/07/2017 03:53 PM Electronically Signed By:Aida Johnson LCSW
--- NOTE | 2017-05-07 16:15 | HOSPPROG ---
Hospitalist Progress Note Assessment/Plan: 52y female resides at [facility] -acute on chronic hypoxemic/hypercarbic resp failure with worsening AHRF 05/05 thought to be noncompliance with BiPAP in the setting of suspected underlying obesity hypoventilation syndrome -cont bi papa and close monitoring -doubt pna in the setting of nml wbc/absence of fever, and low pct now on near baseline 02 -acute on chronic R side CHF, being diuresed po lasix start diamox given met alkalosis acute C diff colitis, is likely the cause of her abdominal pain; on p.o. Vanco hx of PE, remains on xarelto stale chronic ulcer on her R pretibial area now with some scabbing, requires ongoing wound care with dressing changes obesity, suspect obesity hypoventilation syndrome SLE, steroid dependent stable Chronic Blindness x 2 yrs w headaches etiol unknown unable to lay flat to tolerate MRI -Chronic and severe weakness and deconditioning, essentially bed bound, has not been up to chair for "a long time 2 years -h/o cdiff -on precautions Subjective: case d/w dr muse Objective: Vital Signs Temp Pulse Resp BP Pulse Ox 36.3 C 97 20 112/78 92 05/07/17 15:37 05/07/17 15:37 05/07/17 15:37 05/07/17 15:37 05/07/17 15:37 Laboratory Results 05/06/17 04:00 05/07/17 05:45 05/06/17 05/07/17 05/08/17 05:59 05:59 05:59 Intake Total 1678 1550 Output Total 1 Balance 1677 1550 PT 12.3 SEC (12.0-15.0) 04/27/17 11:05 INR 0.92 (0.83-1.16) 04/27/17 11:05 - Physical Exam Constitutional: no apparent distress, appears nourished Eyes: PERRL, anicteric sclera Ears, Nose, Mouth, Throat: moist mucous membranes, hearing normal Cardiovascular: regular rate and rhythym, no murmur, rub, or gallop Respiratory: no respiratory distress, no rales or rhonchi Gastrointestinal: normoactive bowel sounds, soft, non-tender abdomen, No guarding, No rebound Genitourinary: no bladder fullness, No tarango in urethra Skin: warm, normal color Musculoskeletal: no muscle tenderness Neurologic: AAOx3 ICD10 Worksheet Patient Problems: Problems Problem Status Onset Clostridium difficile infection Acute ~04/28/17 Hypoxia Acute Obesity Acute Palliative care encounter Acute Headache Acute Pneumonia Acute
[2017-05-07] MEDS: acetaZOLAMIDE 250 MG in SYRINGE 0 ML IVP SCH ×2 (16:32→20:34)
[2017-05-07] MEDS: RIVAROXABAN 20 MG TAB PO SCH (20:36)
[2017-05-07] MEDS: traZODone 50 MG TAB PO SCH (20:36)
[2017-05-07] MEDS: ALPRAZolam 0.25 MG TAB PO PRN (21:27)
[2017-05-07] MEDS: LATANOPROST 0.005% 2.5 ML OPHT DROPS EACHEYE SCH (21:30)
[2017-05-07] MEDS: ACETAMINOPHEN 325 MG TAB PO PRN (22:44)
[2017-05-08] MEDS: VANCOMYCIN 125 MG/2.5 ML UDL PO SCH ×4 (05:19→20:49)
[2017-05-08] MEDS: DIVALPROEX ER 250 MG TAB PO SCH ×2 (10:32→20:41)
[2017-05-08] MEDS: DEXAMETHASONE 4 MG TAB PO SCH (10:32)
[2017-05-08] MEDS: SENNOSIDES/DOCUSATE SODIUM TAB PO SCH (10:32)
[2017-05-08] MEDS: MULTIVITAMINS 1 EACH TAB PO SCH (10:32)
[2017-05-08] MEDS: PANTOPRAZOLE SODIUM 40 MG TAB PO SCH (10:32)
[2017-05-08] MEDS: ALPRAZolam 0.25 MG TAB PO PRN ×3 (10:32→20:53)
[2017-05-08] MEDS: SERTRALINE HCL 100 MG TAB PO SCH (10:32)
[2017-05-08] MEDS: acetaZOLAMIDE 250 MG in SYRINGE 0 ML IVP SCH (10:34)
[2017-05-08] MEDS: BRIMONIDINE 0.2% 5 ML OPHT.BTL EACHEYE SCH ×3 (10:36→20:38)
[2017-05-08] MEDS: GABAPENTIN 300 MG CAP PO SCH ×3 (10:36→20:38)
[2017-05-08] MEDS: DORZOLAMIDE 2% OPTH DROPS OP SCH ×2 (10:36→20:46)
[2017-05-08] MEDS: TIMOLOL 0.5% 15 ML OPHT.BTL EACHEYE SCH ×2 (10:37→20:48)
--- NOTE | 2017-05-08 12:52 | HOSPPROG ---
Hospitalist Progress Note Assessment/Plan: 52y female resides at [facility] -acute on chronic hypoxemic/hypercarbic resp failure with worsening AHRF 05/05 thought to be noncompliance with BiPAP in the setting of suspected underlying obesity hypoventilation syndrome -cont bi papa and close monitoring -doubt pna in the setting of nml wbc/absence of fever, and low pct now on near baseline -acute on chronic R side CHF, being diuresed po lasix start diamox given met alkalosis 05/08- increase diamox to 500 bid daily weights I think she would be well served by a few days of aggressive diuresis as I estimate she has 10-20 kg fluid weight her ultimate goal is to regain strength and independence; being training and development rep is a great way to improve functional mobility acute C diff colitis, is likely the cause of her abdominal pain; on p.o. Vanco hx of PE, remains on xarelto stale chronic ulcer on her R pretibial area now with some scabbing, requires ongoing wound care with dressing changes obesity, suspect obesity hypoventilation syndrome SLE: based on what appear to mild symptoms on diagnosis, no renal involvement and obvious cushinoid features, her dose of steroids is too high i have decreased dex from 4 bid to 4 daily today strongly recommend taper to zero steroids over months- ie down by 1 mg per month to zero Chronic Blindness x 2 yrs w headaches etiol unknown unable to lay flat to tolerate MRI -Chronic and severe weakness and deconditioning, essentially bed bound, has not been up to chair for "a long time 2 years -h/o cdiff -on precautions Subjective: notes she has been on dexamethasone for "years" without seeing a servicer travel trailers. lupus symptoms were rash and pain. no renal failure. breathing about the same Objective: Vital Signs Temp Pulse Resp BP Pulse Ox 36.4 C 89 16 119/71 95 05/08/17 08:00 05/08/17 08:00 05/08/17 08:00 05/08/17 08:00 05/08/17 08:00 Laboratory Results 05/06/17 04:00 05/08/17 05:20 05/07/17 05/08/17 05/09/17 05:59 05:59 05:59 Intake Total 1550 120 Balance 1550 120 PT 12.3 SEC (12.0-15.0) 04/27/17 11:05 INR 0.92 (0.83-1.16) 04/27/17 11:05 - Physical Exam Constitutional: no apparent distress, appears nourished Eyes: PERRL, anicteric sclera Ears, Nose, Mouth, Throat: moist mucous membranes, hearing normal Cardiovascular: regular rate and rhythym, no murmur, rub, or gallop Respiratory: no respiratory distress, no rales or rhonchi Gastrointestinal: normoactive bowel sounds, soft, non-tender abdomen Genitourinary: no bladder fullness, No tarango in urethra Skin: warm, normal color Musculoskeletal: full muscle strength, no muscle tenderness Neurologic: AAOx3, sensation intact bilaterally Psychiatric: interacting appropriately, not anxious Lymph, Heme, Immunologic: no cervical LAD ICD10 Worksheet Patient Problems: Problems Problem Status Onset Clostridium difficile infection Acute ~04/28/17 Hypoxia Acute Obesity Acute Palliative care encounter Acute Headache Acute Pneumonia Acute
--- NOTE | 2017-05-08 12:52 | HOSPPROG ---
Hospitalist Progress Note Assessment/Plan: 52y female resides at [facility] -acute on chronic hypoxemic/hypercarbic resp failure with worsening AHRF 05/05 thought to be noncompliance with BiPAP in the setting of suspected underlying obesity hypoventilation syndrome -cont bi papa and close monitoring -doubt pna in the setting of nml wbc/absence of fever, and low pct now on near baseline -acute on chronic R side CHF, being diuresed po lasix start diamox given met alkalosis 05/08- increase diamox to 500 bid daily weights I think she would be well served by a few days of aggressive diuresis as I estimate she has 10-20 kg fluid weight her ultimate goal is to regain strength and independence; 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 lupus symptoms were rash and pain. no renal failure. breathing about the same Objective: Vital Signs Temp Pulse Resp BP Pulse Ox 36.4 C 89 16 119/71 95 05/08/17 08:00 05/08/17 08:00 05/08/17 08:00 05/08/17 08:00 05/08/17 08:00 Laboratory Results 05/06/17 04:00 05/08/17 05:20 05/07/17 05/08/17 05/09/17 05:59 05:59 05:59 Intake Total 1550 120 Balance 1550 120 PT 12.3 SEC (12.0-15.0) 04/27/17 11:05 INR 0.92 (0.83-1.16) 04/27/17 11:05 - Physical Exam Constitutional: no apparent distress, appears nourished Eyes: PERRL, anicteric sclera Ears, Nose, Mouth, Throat: moist mucous membranes, hearing normal Cardiovascular: regular rate and rhythym, no murmur, rub, or gallop Respiratory: no respiratory distress, no rales or rhonchi Gastrointestinal: normoactive bowel sounds, soft, non-tender abdomen Genitourinary: no bladder fullness, No tarango in urethra Skin: warm, normal color Musculoskeletal: full muscle strength, no muscle tenderness Neurologic: AAOx3, sensation intact bilaterally Psychiatric: interacting appropriately, not anxious Lymph, Heme, Immunologic: no cervical LAD ICD10 Worksheet Patient Problems: Problems Problem Status Onset Clostridium difficile infection Acute ~04/28/17 Hypoxia Acute Obesity Acute Palliative care encounter Acute Headache Acute Pneumonia Acute
--- NOTE | 2017-05-08 14:22 | ASMTCMCOM ---
CM Note CM Note Notes: CM spoke w/ PT and OT. PT and OT are discharging pt from services because pt does not have any acute care goals. PT and OT recommending that [facility] evaluate pt for PT and OT. Moe from [facility] in to meet w/ pt this morning. Pt is under the impression that she has Medicare. CM emailed Ellen Bhatti and inquired about her Medicare. According to Ellen Bhatti pt does not have Medicare. CM called [facility] and inquire about disability status and Medicare eligibility. Spoke w/ Addi at [facility] and she reports that her business rep public events facilities rental manager returns tomorrow and will have more information. CM will f/u with Addi tomorrow. CM spoke w/ son and he reported that he will be bringing his Mom's CPAP machine today. CM informed son that it might be in pts best interest to apply for disability then apply for Medicare. CM to follow. Plan: Return to [facility] most likely by after speaking w/ Dr. Lehman. Date Signed: 05/08/2017 02:21 PM Electronically Signed By:MACI Hamilton
--- NOTE | 2017-05-08 14:22 | ASMTCMCOM ---
CM Note CM Note Notes: CM spoke w/ PT and OT. PT and OT are discharging pt from services because pt does not have any acute care goals. PT and OT recommending that [facility] evaluate pt for PT and OT. Moe from [facility] in to meet w/ pt this morning. Pt is under the impression that she has Medicare. CM emailed Ellen Bhatti and inquired about her Medicare. According to Ellen Bhatti pt does not have Medicare. CM called [facility] and inquire about disability status and Medicare eligibility. Spoke w/ Addi at [facility] and she reports that her business rep manager administrative returns tomorrow and will have more information. CM will f/u with Addi tomorrow. CM spoke w/ son and he reported that he will be bringing his Mom's CPAP machine today. CM informed son that it might be in pts best interest to apply for disability then apply for Medicare. CM to follow. Plan: Return to [facility] most likely by after speaking w/ Dr. Lehman. Date Signed: 05/08/2017 02:21 PM Electronically Signed By:MACI Hamilton
--- NOTE | 2017-05-08 14:22 | ASMTCMCOM ---
CM Note CM Note Notes: CM spoke w/ PT and OT. PT and OT are discharging pt from services because pt does not have any acute care goals. PT and OT recommending that [facility] evaluate pt for PT and OT. Moe from [facility] in to meet w/ pt this morning. Pt is under the impression that she has Medicare. CM emailed Ellen Bhatti and inquired about her Medicare. According to Ellen Bhatti pt does not have Medicare. CM called [facility] and inquire about disability status and Medicare eligibility. Spoke w/ Addi at [facility] and she reports that her business rep green house manager returns tomorrow and will have more information. CM will f/u with Addi tomorrow. CM spoke w/ son and he reported that he will be bringing his Mom's CPAP machine today. CM informed son that it might be in pts best interest to apply for disability then apply for Medicare. CM to follow. Plan: Return to [facility] most likely by after speaking w/ Dr. Lehman. Date Signed: 05/08/2017 02:21 PM Electronically Signed By:MACI Hamilton
[2017-05-08] MEDS: acetaZOLAMIDE 500 MG in SYRINGE 0 ML IVP SCH ×2 (14:35→20:40)
[2017-05-08] MEDS: IPRATROPIUM/ALBUTEROL 3 ML DEYVIAL IH PRN ×2 (14:53→22:59)
[2017-05-08] MEDS: ACETAMINOPHEN 325 MG TAB PO PRN ×2 (15:11→20:53)
[2017-05-08] MEDS: RIVAROXABAN 20 MG TAB PO SCH (20:41)
[2017-05-08] MEDS: traZODone 50 MG TAB PO SCH (20:41)
[2017-05-08] MEDS: LATANOPROST 0.005% 2.5 ML OPHT DROPS EACHEYE SCH (20:46)
[2017-05-09] MEDS: VANCOMYCIN 125 MG/2.5 ML UDL PO SCH ×4 (05:42→20:45)
[2017-05-09] MEDS ORDERED: POTASSIUM CL 20 MEQ TAB PO ONE (08:17)
[2017-05-09] MEDS: DEXAMETHASONE 4 MG TAB PO SCH (09:14)
[2017-05-09] MEDS: SENNOSIDES/DOCUSATE SODIUM TAB PO SCH (09:14)
[2017-05-09] MEDS: SERTRALINE HCL 100 MG TAB PO SCH (09:14)
[2017-05-09] MEDS: PANTOPRAZOLE SODIUM 40 MG TAB PO SCH (09:14)
[2017-05-09] MEDS: acetaZOLAMIDE 500 MG in SYRINGE 0 ML IVP SCH ×2 (09:14→20:43)
[2017-05-09] MEDS: MULTIVITAMINS 1 EACH TAB PO SCH (09:14)
[2017-05-09] MEDS: DIVALPROEX ER 250 MG TAB PO SCH ×2 (09:14→20:44)
[2017-05-09] MEDS: GABAPENTIN 300 MG CAP PO SCH ×2 (09:14→14:09)
[2017-05-09] MEDS: ALPRAZolam 0.25 MG TAB PO PRN ×2 (09:14→21:05)
[2017-05-09] MEDS: DORZOLAMIDE 2% OPTH DROPS OP SCH ×2 (09:17→20:46)
[2017-05-09] MEDS: POTASSIUM CL 20 MEQ TAB PO SCH (09:17)
[2017-05-09] MEDS: TIMOLOL 0.5% 15 ML OPHT.BTL EACHEYE SCH ×2 (09:17→20:46)
[2017-05-09] MEDS: BRIMONIDINE 0.2% 5 ML OPHT.BTL EACHEYE SCH ×3 (09:17→20:45)
[2017-05-09] MEDS: IPRATROPIUM/ALBUTEROL 3 ML DEYVIAL IH PRN ×3 (10:45→23:17)
[2017-05-09] MEDS: ONDANSETRON 4 MG/2 ML VIAL IVP PRN (14:21)
[2017-05-09] MEDS: ACETAMINOPHEN 325 MG TAB PO PRN (15:24)
[2017-05-09] MEDS: FUROSEMIDE 20 MG TAB PO SCH (15:24)
[2017-05-09] MEDS ORDERED: METHYL SALICYLATE/MENTHOL OINTMENT TP PRN (15:40)
[2017-05-09] MEDS ORDERED: CYCLOBENZAPRINE 10 MG TAB PO PRN (15:41)
--- NOTE | 2017-05-09 17:34 | HOSPPROG ---
Hospitalist Progress Note Assessment/Plan: Assessment: 52 yo p/w respiratory failure and right sided CHF c/b CDiff colitis Plan: # Acute on chronic hypoxemic and hypercarbic resp failure. Worsening today, new problem, further w/u indicated. Tachypnea and shortness of breath, requiring BiPAP at night, thought to be 2/2 noncompliance with BiPAP in the setting of suspected underlying obesity hypoventilation syndrome - cont HS BiPAP - get CXR and ABG now - cont supp o2 - most recent CXR w/o effusions (personally interpreted) # Acute on chronic R side CHF. LE edema ongoing, reassess CXR - restart PO lasix, cont IV diamox 500 bid - monitor strict I/O/weights , being diuresed - monitor K/renal fxn - replace K # Acute C diff colitis. Likely cause of her abdominal pain, 14 days PO Vanco # hx of PE. Cont on Xarelto # Chronic pressure injury. POA, R tibia, wound care consult appreciated # Morbid obesity, suspect obesity hypoventilation syndrome, BMI 57 # Reported chronic SLE w/ chronic immunosuppression 2/2 steroids. Unclear how diagnosis was reached, she has been on dex 4 bid for quite sometime - inappropriately high dosing for chronic steroids, reduced to dex 4 daily and gauging effect - if hypotensive, consider withdraw and add back 2mg HS - start PRN NSAIDs - resulting in bedbound state - get outpt rheum eval, has not seen a director pharmacovigilance locally # Chronic Blindness. x 2 yrs, patient has not tolerated MRI, unclear etiology Diet. Regular PPx. High risk, on xarelto Code. Full Dispo. ADD 05/10, pending stability of above. Subjective: patient reports acute shortness of breath this AM Objective: Vital Signs Temp Pulse Resp BP Pulse Ox 36.8 C 102 H 20 122/74 H 90 L 05/09/17 15:49 05/09/17 15:49 05/09/17 15:49 05/09/17 15:49 05/09/17 15:49 Laboratory Results 05/06/17 04:00 05/09/17 05:50 05/08/17 05/09/17 05/10/17 05:59 05:59 05:59 Intake Total 120 300 Balance 120 300 PT 12.3 SEC (12.0-15.0) 04/27/17 11:05 INR 0.92 (0.83-1.16) 04/27/17 11:05 - Physical Exam Constitutional: chronically ill appearing, obese, uncomfortable, unkempt Cardiovascular: tachycardia, edema (1+ bilat LE), No systolic murmur, No irregularly irregular Respiratory: reduced air movement (bilat bases), other (visible tachypnea), No expiratory wheeze, No inspiratory crackles, No bronchial breath sounds Gastrointestinal: normoactive bowel sounds, no palpable masses, tenderness ( mild to mod depth throughout), No distension Neurologic: AAOx3, sensation intact bilaterally, weakness (3/5 bilat LE) Psychiatric: interacting appropriately, not anxious, not encephalopathic, thought process linear, flat affect ICD10 Worksheet Patient Problems: Problems Problem Status Onset Palliative care encounter Acute Clostridium difficile infection Acute ~04/28/17 Pneumonia Acute Hypoxia Acute Headache Acute Obesity Acute
[2017-05-09] MEDS: oxyCODONE IR 5 MG TAB PO PRN (18:08)
[2017-05-09] MEDS: traZODone 50 MG TAB PO SCH (20:44)
[2017-05-09] MEDS: GABAPENTIN 400 MG CAP PO SCH (20:44)
[2017-05-09] MEDS: RIVAROXABAN 20 MG TAB PO SCH (20:44)
[2017-05-09] MEDS: LATANOPROST 0.005% 2.5 ML OPHT DROPS EACHEYE SCH (20:46)
[2017-05-09 23:37] VITALS: RESP 18
[2017-05-10] MEDS: oxyCODONE IR 5 MG TAB PO PRN ×2 (00:41→08:56)
[2017-05-10] MEDS: ACETAMINOPHEN 325 MG TAB PO PRN ×3 (02:38→15:16)
[2017-05-10] MEDS: VANCOMYCIN 125 MG/2.5 ML UDL PO SCH ×3 (04:28→16:25)
[2017-05-10 04:44] LABS: PLATELET COUNT 146 10^3/uL (150-400)
[2017-05-10 07:47] VITALS: BP 125/76; PULSE 90; TEMP 97.9
[2017-05-10] MEDS: FUROSEMIDE 20 MG TAB PO SCH ×2 (08:56→14:15)
[2017-05-10] MEDS: acetaZOLAMIDE 500 MG in SYRINGE 0 ML IVP SCH (08:56)
[2017-05-10] MEDS: SERTRALINE HCL 100 MG TAB PO SCH (08:56)
[2017-05-10] MEDS: SENNOSIDES/DOCUSATE SODIUM TAB PO SCH (08:56)
[2017-05-10] MEDS: POTASSIUM CL 20 MEQ TAB PO SCH (08:56)
[2017-05-10] MEDS: PANTOPRAZOLE SODIUM 40 MG TAB PO SCH (08:57)
[2017-05-10] MEDS: MULTIVITAMINS 1 EACH TAB PO SCH (08:57)
[2017-05-10] MEDS: DIVALPROEX ER 250 MG TAB PO SCH (08:57)
[2017-05-10] MEDS: DEXAMETHASONE 4 MG TAB PO SCH (08:57)
[2017-05-10] MEDS: GABAPENTIN 400 MG CAP PO SCH ×2 (08:57→14:15)
[2017-05-10] MEDS: BRIMONIDINE 0.2% 5 ML OPHT.BTL EACHEYE SCH ×2 (08:58→14:27)
[2017-05-10] MEDS: TIMOLOL 0.5% 15 ML OPHT.BTL EACHEYE SCH (09:01)
[2017-05-10] MEDS: DORZOLAMIDE 2% OPTH DROPS OP SCH (09:09)
[2017-05-10] MEDS: ALPRAZolam 0.25 MG TAB PO PRN (10:57)
--- NOTE | 2017-05-10 11:06 | PDIAF ---
- Diagnosis Diagnosis: Obesity Hypoventilation Syndrome, Right sided CHF, Morbid Obesity, CDiff Code Status: Full Code - Medication Management Discharge Medications: Medications to Continue on Transfer ALPRAZolam [Xanax 0.5 MG (*)] 0.5 mg PO Q6H PRN 01/22/17 [Last Taken 01/21/17] Acetaminophen [Tylenol 325mg (*)] 650 mg PO Q6HRS PRN 01/22/17 [Last Taken Unknown] Bisacodyl [Dulcolax] 10 mg RC DAILY PRN 01/22/17 [Last Taken 01/21/17] Brimonidine 0.2% [Alphagan 0.2%] 1 drops EACHEYE TID@,01/22/17 [Last Taken 01/22/17 14:00] Diclofenac Sodium 1% [Voltaren Gel (*)] 1 owen TP Q6HRS PRN 01/22/17 [Last Taken Unknown] Divalproex ER [Depakote ER 250 MG (*)] 250 mg PO BID 01/22/17 [Last Taken 08:00] Dorzolamide 2% [Trusopt 2% (*)] 1 drops OP BID 01/22/17 [Last Taken 01/22/17 08: 00] Hydrocodone/Acetaminophen [[place] 5/325 (*)] 1 each PO Q6HRS PRN 01/22/17 [Last Taken Unknown] Latanoprost 0.005% [Xalatan 0.005% (*)] 1 drops EACHEYE HS 01/22/17 [Last Taken 01/22/17] Magnesium Hydroxide/Al Hydrox [Mylanta Liquid] 20 ml PO Q4HRS PRN 01/22/17 [ Last Taken Unknown] Rivaroxaban [Xarelto 10mg (*)] 20 mg PO HS 01/22/17 [Last Taken 01/22/17] Sennosides/Docusate Sodium [Senna-Docusate Sodium Tablet] 1 each PO DAILY [Last Taken 01/22/17] Sertraline HCl [Zoloft 100mg (*)] 100 mg PO DAILY 01/22/17 [Last Taken 01/22/17] Timolol 0.5% [TIMOPTIC 0.5% (*)] 1 drops EACHEYE BID 01/22/17 [Last Taken 08:00] traZODone [traZODONE 50MG (*)] 50 mg PO HS 01/22/17 [Last Taken 01/22/17] Ipratropium/Albuterol [Duoneb (*)] 3 ml IH Q4HRS PRN 01/23/17 [Last Taken Unknown] Multivitamins [Multivitamin (*)] 1 each PO DAILY 01/23/17 [Last Taken 01/22/17] Potassium Cl [Klor-Con 20 meq (*)] 40 meq PO BID@08,16 01/23/17 [Last Taken 16:00] Acetaminophen [Tylenol 650/20.3ML Oral Liq (*)] 650 mg PO Q6 PRN #0 udcup [Last Taken Unknown] Benzonatate [Tessalon Pearles] 200 mg PO TID PRN #0 cap 01/25/17 [Last Taken Unknown] guaiFENesin/DEXTROMETHORPHAN [Robitussin Dm Oral Liquid (*)] 10 ml PO Q4HRS PRN #0 ml 01/25/17 [Last Taken Unknown] Ipratropium/Albuterol [Duoneb (*)] 3 ml IH Q4H PRN 04/27/17 [Last Taken Unknown] Neomy Sulf/Bacitrac Zn/Poly [Triple Antibiotic Oint tube (*)] 1 owen TP BID 04/27 [Last Taken Unknown] Omeprazole 20 mg PO DAILY 04/27/17 [Last Taken Unknown] Dexamethasone [Decadron 4 MG (*)] 4 mg PO DAILY tab 05/10/17 [Last Taken Unknown] Furosemide [Lasix 20 MG (*)] 20 mg PO BID@0900,1500 tab 05/10/17 [Last Taken Unknown] Gabapentin [Neurontin 400 MG (*)] 400 mg PO TID@08,14,20 cap 05/10/17 [Last Taken Unknown] Methyl Salicylate/Menthol [Bengay (*)] 1 owen TP Q6HRS PRN oint 05/10/17 [Last Taken Unknown] Vancomycin [Vancocin Oral Liquid] 125 mg PO QID #12 udl 11/02/17 [Last Taken Unknown] Senior Living Antibiotics: Vancomycin 125mg 4xd PO Dump Attendant Antibiotic Stop Date: 05/13/17 Discharge Medications: Refer to the Discharge Home Medication list for PRN reason. PICC Care - Routine: N/A - Orders Services needed: Registered Nurse, Certified Data Reporting Analyst, Physical Therapy, Occupational Therapy Oxygen: 4L NC continuous during day, BiPAP at night (routine settings) Diet Recommendation: cardiac -low fat low salt Weigh Patient: weekly Manzano: Not applicable Wound Care Instructions: right ann, routine wound care/bandage changes - Labs/Radiology BMP Date: 05/14/17 (weekly) Call or Fax Lab and Imaging Results to: Dr. Portillo - Follow Up Care Current Providers and Referrals: CAL PORTILLO [Other] - As per Instructions Jeremy Wilhelm MD [[facility] Primary Care Provider] - follow up in 1 week (please call to schedule an outpatient consultation)
--- NOTE | 2017-05-10 14:25 | ASMTCMCOM ---
CM Note CM Note Notes: Today Pt. ready to d/c to [facility] where she has been living. After consultation with Pastor at [place] who is covering for Naomi at [facility], Eden sent d/c orders and meds via [employer] to [facility]. Gave report number to RN. At Pastor's request, Eden set up bariatric stretcher transport to be paid by [facility]. Transport set up for 16:00 at the wish of the bedside RN. Eden left message for MDPOA son AJ that Pt. returning to [facility] today and left him msg about how to apply for SSDI benefits that would potentially give Pt. Medicare benefits sooner (due to blindness) or two years later (standard procedure). Eden and Chaplain Moe met w/ Pt. in room. Pt is interested in applying for federal disability benefits. Encouraged her to speak w/ AJ and her mother about her wishes. Pt. stated she was unhappy that RNs said they would get her out of bed and in a chair, RNs agreed, but it did not materialize. Eden let community relations advisor know Pt's concerns. Current plan: Pt. to d/c today to [facility] where she has been living in LTC. Bariatric stretcher coming at 16:00. Date Signed: 05/10/2017 02:25 PM Electronically Signed By:Yarelis Mishra LCSW
--- NOTE | 2017-05-10 14:25 | ASMTCMCOM ---
CM Note CM Note Notes: Today Pt. ready to d/c to [facility] where she has been living. After consultation with Pastor at [place] who is covering for Naomi at [facility], Eden sent d/c orders and meds via [employer] to [facility]. Gave report number to RN. At Pastor's request, Eden set up bariatric stretcher transport to be paid by [facility]. Transport set up for 16:00 at the wish of the bedside RN. Eden left message for MDPOA son AJ that Pt. returning to [facility] today and left him msg about how to apply for SSDI benefits that would potentially give Pt. Medicare benefits sooner (due to blindness) or two years later (standard procedure). Eedn and Chaplain Moe met w/ Pt. in room. Pt is interested in applying for federal disability benefits. Encouraged her to speak w/ AJ and her mother about her wishes. Pt. stated she was unhappy that RNs said they would get her out of bed and in a chair, RNs agreed, but it did not materialize. Eden let community nurse know Pt's concerns. Current plan: Pt. to d/c today to [facility] where she has been living in LTC. Bariatric stretcher coming at 16:00. Date Signed: 05/10/2017 02:25 PM Electronically Signed By:Yarelis Mishra LCSW
--- NOTE | 2017-05-10 14:25 | ASMTCMCOM ---
CM Note CM Note Notes: Today Pt. ready to d/c to [facility] where she has been living. After consultation with Pastor at [place] who is covering for Naomi at [facility], Eden sent d/c orders and meds via [employer] to [facility]. Gave report number to RN. At Pastor's request, Eden set up bariatric stretcher transport to be paid by [facility]. Transport set up for 16:00 at the wish of the bedside RN. Eden left message for MDPOA son AJ that Pt. returning to [facility] today and left him msg about how to apply for SSDI benefits that would potentially give Pt. Medicare benefits sooner (due to blindness) or two years later (standard procedure). Eden and Chaplain Moe met w/ Pt. in room. Pt is interested in applying for federal disability benefits. Encouraged her to speak w/ AJ and her mother about her wishes. Pt. stated she was unhappy that RNs said they would get her out of bed and in a chair, RNs agreed, but it did not materialize. Eden let nuclear unit operator know Pt's concerns. Current plan: Pt. to d/c today to [facility] where she has been living in LTC. Bariatric stretcher coming at 16:00. Date Signed: 05/10/2017 02:25 PM Electronically Signed By:Yarelis Mishra LCSW
--- NOTE | 2017-05-10 15:10 | PDDCSUM ---
Discharge Summary Discharge Summary: DISCHARGE SUMMARY FOLLOW-UP ITEMS: 1. Outpatient rheumatology follow-up 2. Outpatient creatinine BUN and lytes DATE OF ADMISSION: 04/27/2017 DATE OF DISCHARGE: 05/10/2017 DISCHARGE DIAGNOSES: 1. Acute on chronic hypoxemic and hypercarbic respiratory failure 2. Acute on chronic right-sided diastolic congestive heart failure 3. Acute C difficile colitis 4. Chronic pressure injury present on admission 5. Morbid obesity with BMI 57 6. Chronic SLE with chronic immunosuppression secondary to steroids 7. History of pulmonary embolism 8. Chronic blindness 9. Acute atelectasis 10. Suspected obesity hypoventilation syndrome sign 11. Acute on chronic metabolic alkalosis CONSULTATIONS: Pulmonary, palliative care PROCEDURES / IMAGING: PICC line insertion multiple chest x-rays CHIEF COMPLAINT: Acute shortness of breath SUBJECTIVE: Patient is feeling well at time of discharge PHYSICAL EXAM ON DISCHARGE: Systolic blood pressure 120, heart rate 90, afebrile overnight, satting well on 4 L nasal cannula, morbidly obese, dry skin with scattered ecchymoses, breast diminished in the bilateral bases, but there are no inspiratory crackles, bilateral lower extremities have trace edema and are obese, but not tense, anterior right ann wound, heart rhythm is regular, alert awake oriented x3 LABS ON DISCHARGE: Potassium 3.5, creatinine 0.5, serum bicarbonate 31, white blood count 9500, hemoglobin 10.4, most recent ABG with pH 7.36, pCO2 48 HOSPITAL COURSE BY PROBLEM: The patient presented with acute shortness of breath secondary to acute on chronic hypoxemic and hypercapnic respiratory failure evidenced by objective tachypnea with respiratory rates as high as 28, increased oxygen requirements up to 15 L face mask as well as continuous BiPAP, for an SpO2 of 86% on 10 L high-flow oxygen with a baseline oxygen requirement of 4 L, as well as increased pCO2 level of 48 and pH of less than 7.4. She was treated aggressively in the intensive care unit with ongoing BiPAP therapy and then was weaned down to high-flow oxygen during the day, BiPAP therapy at night. Discharge he was employed because the patient most likely has a worsening component of obesity hypoventilation syndrome, complicated by acute diastolic right-sided congestive heart failure. The patient received diuresis with a combination of Lasix and acetazolamide given her underlying compensatory metabolic alkalosis. The patient diuresed effectively, and her oxygen requirements during the daytime decreased back down to her baseline of 4 L nasal cannula. The patient is being safely discharged on continuous BiPAP at night, nasal cannula oxygen during the day. She will be continued on Lasix 20 mg twice daily with supplemental potassium an outpatient labs next week. It was also noted that the patient has a steroid dependency for what was reported as underlying lupus. That being said, the patient reports that she has not seen a clinical exercise physiologist in many years, and she does not have 1 locally. She is on a very high dosage of steroids, dexamethasone 4 mg twice daily, and this was titrated down to 4 mg once daily. We recommend that she follow up with an outpatient clinical exercise physiologist and 1 was provided at time of discharge. The patient was not experiencing a significant amount of rebound pain, and she should continue her nonnarcotic pain methods moving forward. It should also be noted that the patient is severely disabled, secondary to blindness which has reportedly not been evaluated in the outpatient setting as well as morbid obesity which has rendered her almost entirely bed-bound. We recommend ongoing physical and occupational therapy modalities. Her pressure injury was present on admission and treated by Wound Care, with dressing changes outlined in our in her agency form. The patient also experienced acute C difficile colitis and was initiated on vancomycin, with good effect. The patient has 3 subsequent days of treatment following discharge, to complete a total 14 day course. DISCHARGE MEDICATIONS: Please see official discharge medication reconciliation sheet in chart , continue home medications with the reduction in dexamethasone 4 mg once daily, introduction of Lasix 20 mg twice daily, potassium 20 mEq daily. DISCHARGE INSTRUCTIONS: Please schedule follow-up with an outpatient clinical exercise physiologist and have the aforementioned labs drawn. TIME SPENT: Greater than 30 minutes were spent on direct patient care, as well as discharge planning and preparation.
[2017-05-10] MEDS: IPRATROPIUM/ALBUTEROL 3 ML DEYVIAL IH PRN (16:05)
[2017-05-10 16:11] VITALS: O2SAT 94
--- NOTE | 2017-05-10 17:04 | ASDISCHSUM ---
Discharge Information Plan Status:SNF Medically Cleared to Leave: Discharge Date:05/10/2017 04:29 PM CM D/C Disposition:Correction Facility ADT D/C Disposition:Correction Facility Projected Discharge Date:04/30/2017 11:00 AM Transportation at D/C:ALS/BLS Discharge Delay Reason: Follow-Up Date:04/30/2017 11:00 AM Discharge Slot: Final Diagnosis:SOB, Hypoxia, CHF Placement Information Referral Type:*Halfway/SNF Referral ID:[id number] Provider Name:TINA Clarke Address 1:[address] Phone Number: Address 2: Fax Number: City:[place] Selection Factors: State:[place] Patient Contact Information Contact Name:MICHELLE Relationship:Son Address:[facility] [address] [facility] Work Phone: [facility]:[place] Alternate Phone: [facility]/Zip Code:[place] [address] Email: Financial Information Financial Class: Primary Plan Desc:MED[place] Primary Plan Number:[id number] Secondary Plan Desc: Secondary Plan Number: Assessment Information [facility] CM Progress Note CM Note CM Note Notes: 04/28/2017 Case Managment Note Reviewed chart, discussed w/RN. Met w/pt. Pt lives at [facility]. Confirmed with Naomi at [facility] and spoke w/RN in charge of cares at [facility]. Pt is not under Palliative Care at [facility]. [facility] staff plans for pt to return when medically stable. Pt reports a son, Boy, lives in [place]. Pt did not have a contact phone number. RN at [facility] reports that UNIQUE, also a son, is the MDPOA. Case Management d/c poc: Return to [facility] when medically stable with follow up as directed. Case Management to follow. Date Signed: 04/28/2017 02:40 PM Electronically Signed By:Rena Rojas RN [facility] CM Progress Note CM Note CM Note Notes: Patient had a Palliative consult today. Patient would like to remain Full Code and wants rehab so that she can return home with family. Vibha is obese, blind, w/c bound, transfers with a lift, has not ambulated for 2yrs, needs total assist with ADL's. The Palliative team felt that patient may be very depressed, given her blindness and lack of mobility. Contact made to her BM SWEllie to see if a counselor could be lined up to visit with patient. Ellie said that patient might already be set up with the [facility] Counselling team. Ellie will check and get back with this CM. Contact made to [facility] senior division, Moon, and left a message asking for services for patient. Date Signed: 05/01/2017 03:09 PM Electronically Signed By:Aida Johnson LCSW [facility] CM Progress Note CM Note CM Note Notes: Reviewed chart, d/w RN. Current plan is still to return to [facility] when medically stable. I met w/pt and she is in agreement w/this plan. Date Signed: 05/04/2017 02:04 PM Electronically Signed By:Cynthia Hooper RN [facility] CM Progress Note CM Note CM Note Notes: Concern for this 52 year old female who has been bed bound and blind and probably very depressed. Patient's hope is to someday be able to return home with family. Presently bed bound, obese needing a Lift to transfer. Patient has Medicaid which does not pay for rehab at the SNF level of care. PT/OT at [facility] willing determine if patient is interested in rehab. They will need an MD Order. This CM contacted [facility] and left messages for the Him Clerk, [employer] and , to determine patient's disability status. She may have Medicaid disability to be in [facility]. After 2 years of Medicaid disability she could apply for Medicare disability which would give her more rehab benefits. Contacted her son Marino and asked him about her disability status-he was unsure. Also asked him if he might know where her c-pap machine was located. Zack. to ask the siblings who were living with her and try to find where it's located. This CM spoke to the Him Clerk at . She reports that Patient has been there for approx 3mos. She has a c-pap machine at but refuses to use it, makes her claustrophobic. Patient was working w/therapies when she first came to but became very anxious using the Lift and now refuses to get into her W/C. Admin reports that she will look into her disability status. Patient has been transferred to . Date Signed: 05/07/2017 03:53 PM Electronically Signed By:Aida Johnson LCSW [facility] Progress Note CM Note CM Note Notes: CM spoke w/ PT and OT. PT and OT are discharging pt from services because pt does not have any acute care goals. PT and OT recommending that [facility] evaluate pt for PT and OT. Moe from [facility] services in to meet w/ pt this morning. Pt is under the impression that she has Medicare. CM emailed Ellen Bhatti and inquired about her Medicare. According to Ellen Bhatti pt does not have Medicare. CM called [facility] and inquire about disability status and Medicare eligibility. Spoke w/ Addi at [facility] and she reports that her business rep manager biostatistics returns tomorrow and will have more information. CM will f/u with Addi tomorrow. CM spoke w/ son and he reported that he will be bringing his Mom's CPAP machine today. CM informed son that it might be in pts best interest to apply for disability then apply for Medicare. CM to follow. Plan: Return to [facility] most likely by after speaking w/ Dr. Lehman. Date Signed: 05/08/2017 02:21 PM Electronically Signed By:MACI Hamilton [facility] Progress Note CM Note CM Note Notes: Today Pt. ready to d/c to [facility] where she has been living. After consultation with Pastor at [place] who is covering for Naomi at [facility], Eden sent d/c orders and meds via [employer] to [facility]. Gave report number to RN. At Pastor's request, Eden set up bariatric stretcher transport to be paid by [facility]. Transport set up for 16:00 at the wish of the bedside RN. Eden left message for MERYLOA son UNIQUE that Pt. returning to [facility] today and left him msg about how to apply for SSDI benefits that would potentially give Pt. Medicare benefits sooner (due to blindness) or two years later (standard procedure). Eden and Chaplain Moe met w/ Pt. in room. Pt is interested in applying for federal disability benefits. Encouraged her to speak w/ AJ and her mother about her wishes. Pt. stated she was unhappy that RNs said they would get her out of bed and in a chair, RNs agreed, but it did not materialize. Eden let self contained behavior unit teacher know Pt's concerns. Current plan: Pt. to d/c today to [facility] where she has been living in LTC. Bariatric stretcher coming at 16:00. Date Signed: 05/10/2017 02:25 PM Electronically Signed By:Yarelis Mishra LCSW Intervention Information
--- NOTE | 2017-05-10 17:04 | ASDISCHSUM ---
Discharge Information Plan Status:SNF Medically Cleared to Leave: Discharge Date:05/10/2017 04:29 PM CM D/C Disposition:Assisted Facility ADT D/C Disposition:Assisted Facility Projected Discharge Date:04/30/2017 11:00 AM Transportation at D/C:ALS/BLS Discharge Delay Reason: Follow-Up Date:04/30/2017 11:00 AM Discharge Slot: Final Diagnosis:SOB, Hypoxia, CHF Placement Information Referral Type:*Jail/SNF Referral ID:[id number] Provider Name:TINA Clarke Address 1:[address] Phone Number: Address 2: Fax Number: City:[place] Selection Factors: State:[place] Patient Contact Information Contact Name:MICHELLE Relationship:Son Address:[facility] [address] [facility] Work Phone: [facility]:[place] Alternate Phone: [facility]/Zip Code:[place] [address] Email: Financial Information Financial Class: Primary Plan Desc:MED[place] Primary Plan Number:[id number] Secondary Plan Desc: Secondary Plan Number: Assessment Information [facility] CM Progress Note CM Note CM Note Notes: 04/28/2017 Case Managment Note Reviewed chart, discussed w/RN. Met w/pt. Pt lives at [facility]. Confirmed with Naomi at [facility] and spoke w/RN in charge of cares at [facility]. Pt is not under Palliative Care at [facility]. [facility] staff plans for pt to return when medically stable. Pt reports a son, Boy, lives in [place]. Pt did not have a contact phone number. RN at [facility] reports that UNIQUE, also a son, is the MDPOA. Case Management d/c poc: Return to [facility] when medically stable with follow up as directed. Case Management to follow. Date Signed: 04/28/2017 02:40 PM Electronically Signed By:Rena Rojas RN [facility] CM Progress Note CM Note CM Note Notes: Patient had a Palliative consult today. Patient would like to remain Full Code and wants rehab so that she can return home with family. Vibha is obese, blind, w/c bound, transfers with a lift, has not ambulated for 2yrs, needs total assist with ADL's. The Palliative team felt that patient may be very depressed, given her blindness and lack of mobility. Contact made to her BM SWEllie to see if a counselor could be lined up to visit with patient. Ellie said that patient might already be set up with the [facility] Counselling team. Ellie will check and get back with this CM. Contact made to [facility] senior division, Moon, and left a message asking for services for patient. Date Signed: 05/01/2017 03:09 PM Electronically Signed By:Aida Johnson LCSW [facility] CM Progress Note CM Note CM Note Notes: Reviewed chart, d/w RN. Current plan is still to return to [facility] when medically stable. I met w/pt and she is in agreement w/this plan. Date Signed: 05/04/2017 02:04 PM Electronically Signed By:Cynthia Hooper RN [facility] CM Progress Note CM Note CM Note Notes: Concern for this 52 year old female who has been bed bound and blind and probably very depressed. Patient's hope is to someday be able to return home with family. Presently bed bound, obese needing a Lift to transfer. Patient has Medicaid which does not pay for rehab at the SNF level of care. PT/OT at [facility] willing determine if patient is interested in rehab. They will need an MD Order. This CM contacted [facility] and left messages for the Seismographer, [employer] and , to determine patient's disability status. She may have Medicaid disability to be in [facility]. After 2 years of Medicaid disability she could apply for Medicare disability which would give her more rehab benefits. Contacted her son Marino and asked him about her disability status-he was unsure. Also asked him if he might know where her c-pap machine was located. Zack. to ask the siblings who were living with her and try to find where it's located. This CM spoke to the Seismographer at . She reports that Patient has been there for approx 3mos. She has a c-pap machine at but refuses to use it, makes her claustrophobic. Patient was working w/therapies when she first came to but became very anxious using the Lift and now refuses to get into her W/C. Admin reports that she will look into her disability status. Patient has been transferred to . Date Signed: 05/07/2017 03:53 PM Electronically Signed By:Aida Johnson LCSW [facility] Progress Note CM Note CM Note Notes: CM spoke w/ PT and OT. PT and OT are discharging pt from services because pt does not have any acute care goals. PT and OT recommending that [facility] evaluate pt for PT and OT. Moe from [facility] includes the [facility] services in to meet w/ pt this morning. Pt is under the impression that she has Medicare. CM emailed Ellen Bhatti and inquired about her Medicare. According to Ellen Bhatti pt does not have Medicare. CM called [facility] and inquire about disability status and Medicare eligibility. Spoke w/ Addi at [facility] and she reports that her business rep hog confinement system manager returns tomorrow and will have more information. CM will f/u with Addi tomorrow. CM spoke w/ son and he reported that he will be bringing his Mom's CPAP machine today. CM informed son that it might be in pts best interest to apply for disability then apply for Medicare. CM to follow. Plan: Return to [facility] most likely by after speaking w/ Dr. Lehman. Date Signed: 05/08/2017 02:21 PM Electronically Signed By:MACI Hamilton [facility] Progress Note CM Note CM Note Notes: Today Pt. ready to d/c to [facility] where she has been living. After consultation with Pastor at [place] who is covering for Naomi at [facility], Eden sent d/c orders and meds via [employer] to [facility]. Gave report number to RN. At Pastor's request, Eden set up bariatric stretcher transport to be paid by [facility]. Transport set up for 16:00 at the wish of the bedside RN. Eden left message for MERYLOA son UNIQUE that Pt. returning to [facility] today and left him msg about how to apply for SSDI benefits that would potentially give Pt. Medicare benefits sooner (due to blindness) or two years later (standard procedure). Eden and Chaplain Moe met w/ Pt. in room. Pt is interested in applying for federal disability benefits. Encouraged her to speak w/ AJ and her mother about her wishes. Pt. stated she was unhappy that RNs said they would get her out of bed and in a chair, RNs agreed, but it did not materialize. Eden let community organization aide know Pt's concerns. Current plan: Pt. to d/c today to [facility] where she has been living in LTC. Bariatric stretcher coming at 16:00. Date Signed: 05/10/2017 02:25 PM Electronically Signed By:Yarelis Mishra LCSW Intervention Information
--- NOTE | 2017-05-10 17:04 | ASDISCHSUM ---
Discharge Information Plan Status:SNF Medically Cleared to Leave: Discharge Date:05/10/2017 04:29 PM CM D/C Disposition[facility] ADT D/C Disposition:[facility] Projected Discharge Date:04/30/2017 11:00 AM Transportation at D/C:ALS/BLS Discharge Delay Reason: Follow-Up Date:04/30/2017 11:00 AM Discharge Slot: Final Diagnosis:SOB, Hypoxia, CHF Placement Information Referral Type:*Half-Way/SNF Referral ID:[id number] Provider Name:TINA Clarke Address 1:[address] Phone Number: Address 2: Fax Number: City:[place] Selection Factors: State:[place] Patient Contact Information Contact Name:MICHELLE Relationship:Son Address:[facility] Work Phone: [facility]:[place] Alternate Phone: [facility]/Zip Code:[place] [address] Email: Financial Information Financial Class: Primary Plan Desc:[place] Primary Plan Number:[id number] Secondary Plan Desc: Secondary Plan Number: Assessment Information [facility] CM Progress Note CM Note CM Note Notes: 04/28/2017 Case Managment Note Reviewed chart, discussed w/RN. Met w/pt. Pt lives at [facility]. Confirmed with Naomi at [facility] and spoke w/RN in charge of cares at [facility]. Pt is not under Palliative Care at [facility]. [facility] staff plans for pt to return when medically stable. Pt reports a son, Boy, lives in [place]. Pt did not have a contact phone number. RN at [facility] reports that UNIQUE, also a son, is the MDPOA. Case Management d/c poc: Return to [facility] when medically stable with follow up as directed. Case Management to follow. Date Signed: 04/28/2017 02:40 PM Electronically Signed By:Rena Rojas RN [facility] CM Progress Note CM Note CM Note Notes: Patient had a Palliative consult today. Patient would like to remain Full Code and wants rehab so that she can return home with family. Vibha is obese, blind, w/c bound, transfers with a lift, has not ambulated for 2yrs, needs total assist with ADL's. The Palliative team felt that patient may be very depressed, given her blindness and lack of mobility. Contact made to her BM SWEllie to see if a counselor could be lined up to visit with patient. Ellie said that patient might already be set up with the [facility] team. Ellie will check and get back with this CM. Contact made to [facility] senior division, [place], and left a message asking for services for patient. Date Signed: 05/01/2017 03:09 PM Electronically Signed By:Aida Johnson LCSW [facility] CM Progress Note CM Note CM Note Notes: Reviewed chart, d/w RN. Current plan is still to return to [facility] when medically stable. I met w/pt and she is in agreement w/this plan. Date Signed: 05/04/2017 02:04 PM Electronically Signed By:Cynthia Hooper RN [facility] CM Progress Note CM Note CM Note Notes: Concern for this 52 year old female who has been bed bound and blind and probably very depressed. Patient's hope is to someday be able to return home with family. Presently bed bound, obese needing a Lift to transfer. Patient has Medicaid which does not pay for rehab at the SNF level of care. PT/OT at [facility] willing determine if patient is interested in rehab. They will need an MD Order. This CM contacted [facility] and left messages for the Director Of Instructional Technology, [employer] and , to determine patient's disability status. She may have Medicaid disability to be in [facility]. After 2 years of Medicaid disability she could apply for Medicare disability which would give her more rehab benefits. Contacted her son Marino and asked him about her disability status-he was unsure. Also asked him if he might know where her c-pap machine was located. Zack. to ask the siblings who were living with her and try to find where it's located. This CM spoke to the Director Of Instructional Technology at . She reports that Patient has been there for approx 3mos. She has a c-pap machine at but refuses to use it, makes her claustrophobic. Patient was working w/therapies when she first came to but became very anxious using the Lift and now refuses to get into her W/C. Admin reports that she will look into her disability status. Patient has been transferred to . Date Signed: 05/07/2017 03:53 PM Electronically Signed By:Aida Johnson LCSW [facility] Progress Note CM Note CM Note Notes: CM spoke w/ PT and OT. PT and OT are discharging pt from services because pt does not have any acute care goals. PT and OT recommending that [facility] evaluate pt for PT and OT. Moe from [facility] services in to meet w/ pt this morning. Pt is under the impression that she has Medicare. CM emailed Ellen Bhatti and inquired about her Medicare. According to Ellen Bhatti pt does not have Medicare. CM called [facility] and inquire about disability status and Medicare eligibility. Spoke w/ Addi at [facility] and she reports that her business rep beverage manager returns tomorrow and will have more information. CM will f/u with Addi tomorrow. CM spoke w/ son and he reported that he will be bringing his Mom's CPAP machine today. CM informed son that it might be in pts best interest to apply for disability then apply for Medicare. CM to follow. Plan: Return to [facility] most likely by after speaking w/ Dr. Lehman. Date Signed: 05/08/2017 02:21 PM Electronically Signed By:MACI Hamilton [facility] Progress Note CM Note CM Note Notes: Today Pt. ready to d/c to [facility] where she has been living. After consultation with Pastor at [facility] who is covering for Naomi at [facility], Eden sent d/c orders and meds via [employer] to [facility]. Gave report number to RN. At Pastor's request, Eden set up bariatric stretcher transport to be paid by [facility]. Transport set up for 16:00 at the wish of the bedside RN. Eden left message for MERYLOA son UNIQUE that Pt. returning to [facility] today and left him msg about how to apply for SSDI benefits that would potentially give Pt. Medicare benefits sooner (due to blindness) or two years later (standard procedure). Eden and Chaplain Moe met w/ Pt. in room. Pt is interested in applying for federal disability benefits. Encouraged her to speak w/ AJ and her mother about her wishes. Pt. stated she was unhappy that RNs said they would get her out of bed and in a chair, RNs agreed, but it did not materialize. Eden let gunite mixer know Pt's concerns. Current plan: Pt. to d/c today to [facility] where she has been living in LTC. Bariatric stretcher coming at 16:00. Date Signed: 05/10/2017 02:25 PM Electronically Signed By:Yarelis Mishra LCSW [facility] Information
== END 2017-05-10 16:29 | DRG 189 ==
LOC: EDUNIT# → F2N 18:44 → F3E 05-03 08:59 → F2N 05-05 20:43 → F3E 05-07 13:17
PROVIDERS: ADMIT Internal Medicine; ATTEND Hospitalist
PROC: 02HV33Z Insertion of Infusion Device into Superior Vena Cava, Percutaneous Approach (ICD-10-PCS; principal; 2017-04-27)
DX: J96.21 Acute and chronic respiratory failure with hypoxia (principal); I50.33 Acute on chronic diastolic (congestive) heart failure; A04.72 Enterocolitis due to Clostridium difficile, not specified as recurrent; E66.2 Morbid (severe) obesity with alveolar hypoventilation; Z68.43 Body mass index [BMI] 50.0-59.9, adult; E87.3 Alkalosis; J98.11 Atelectasis; J96.22 Acute and chronic respiratory failure with hypercapnia; T38.0X5A Adverse effect of glucocorticoids and synthetic analogues, initial encounter; E66.09 Other obesity due to excess calories; H44.9 Unspecified disorder of globe; H54.8 Legal blindness, as defined in USA; Z86.711 Personal history of pulmonary embolism; M32.9 Systemic lupus erythematosus, unspecified; Z23 Encounter for immunization
CPT/HCPCS: 97162-GP; 97166-GO; 97168-GO; C1751; G0008; G0009; J1120; J1940; J2405